=== PATIENT | male | born 1965 | race Caucasian/White ===

== ENCOUNTER 2017-04-17 06:16 | Day surgery (SDC) | payer OTHER, SELFPAY ==
[2017-04-16 12:49] VITALS: BMI 28.5
[2017-04-17] VITALS (12 sets, daily range): BP systolic 117–147; BP diastolic 63–82; PULSE 53–93; RESP 14–20; TEMP 36.2–43; O2SAT 95–98
--- NOTE | 2017-04-17 07:21 | P.PN_ITS ---
[facility] Anesthesia Checklist - Patient Identification Patient Identification: Arm Band, Verbal (Name & ) - Structural Data Admitted From: Home Consent for Planned Operative Procedure(s) Verified: Yes Verified Documents: Surgical Consent - NPO Status Verified Time NPO: 00:00 - Chart Verification Results Verified: CBC, BMP - Additional verifications Patient : No Anesthesia Reactions: No Hx Blood Transfusions: Yes Blood Transfusion Reaction: No Cephalosporin Allergy: No Previous Colonoscopy: No - Cardiovascular Assessment Heart Sounds: S1 & S2 Pulse Strength: Strong Pulse Rhythm: Regular Peripheral Edema: No - Airway Assessment C-Spine Mobility Assessed: Yes TMJ Mobility Assessed: Yes Dentition: Good Dentition - Neurological Assessment Level of Consciousness: Awake, Alert, Appropriate Hx Seizures: No Numbness or tingling in extremities: No - Anesthesia Plan Anesthesia Risk discussed: Yes Anesthesia Plan: Verified ASA Class: III Anesthesia Type: General [facility] Anesthesia HX I have reviewed the patient's past medical history: Yes Medical History: Reports:: Chronic Obstructive Pulmonary Disease (COPD), Coronary Artery Disease Denies:: Cancer, Diabetes Mellitus Type 1, Diabetes Mellitus Type 2, MRSA, Seizures Other Medical History: Denies: Blood Transfusion Reaction (n/a) Other Surgeries: Yes: Appendectomy. No: Pacemaker Amputation: No Fractures: No *Family Hx:: Coronary Artery Disease
--- NOTE | 2017-04-17 08:20 | PC.NURSE ---
[id number]/C INSERTED PER RICHY DAVIS
--- NOTE | 2017-04-17 10:09 | HMH.ANESI ---
[facility] Anesthesia Record Part I Intake, IV Amount: 1,400 Estimated blood loss (mL): 25 Urine output (mL): 200 Blood Products used (#): none Blood Pressure: 147/82 SaO2: 97 Pulse Rate: 93 Respiratory Rate: 20 Temperature: 97.2 F Patient is:: Awake, Mask O2, Stable Stable to PACU at:: 10:04
--- NOTE | 2017-04-17 10:10 | HMH.ANESII ---
[facility] Anesthesia Record Part II Discharge Time: 10:34 Destination: Surgical Day Care (OP Surgery) PACU nurse assessment reviewed?: Yes Patient Condition:: Good Anesthesia Complications:: None
--- NOTE | 2017-04-17 10:17 | HMH.OPNOTE ---
Date of procedure: 04/17/17 Pre-op Diagnosis:: Bilateral inguinal hernias Post-op diagnosis:: same Procedure performed:: Bilateral laparoscopic inguinal hernia repair with placement of a large left Bard 3D max mesh and a medium right Bard 3D max mesh Surgeon:: Ten Tanner MD Senior Net C Developer(s):: None Anesthesia: ANN Estimated blood loss (mL): 50 Clinical Note:: Patient is a 51-year-old white male from [place] who had previously had umbilical hernia repair. He states that he has had more prominence in the left groin and testicular area for quite some time. Several months ago he had what he describes as a bout of significant coughing. He had protrusion in the left groin area and had been able to reduce the area but it has become more difficult to reduce. He had discomfort with walking and standing. Patient was seen as a surgical consultation. He was found to have a large visible left inguinal hernia and smaller palpable right inguinal hernia. He wished to proceed surgical intervention. Patient did have previous coronary artery bypass grafting and he underwent cardiac clearance. Options were discussed and plan was made for laparoscopic with possibly open bilateral inguinal hernia repair with concentration on the left. Operative findings:: Large indirect left inguinal hernia and small direct left inguinal hernia. [id number] indirect right inguinal hernia. Operative note:: Consent was obtained and patient was taken to the operating room. He was given preoperative intravenous antibiotic. General anesthesia was induced via endotracheal tube. He had Gustafson catheter placed for bladder decompression. Abdomen and perineal area were prepped and draped in the standard sterile fashion. Infraumbilical skin incision was made. Dissection was carried down through subcutaneous tissues to anterior rectus fascia which was incised to the left of the linea alba. Rectus muscles were retracted laterally and pre-peritoneal space was entered. Dissecting balloon trocar was inserted and preperitoneal space was dissected out under laparoscopic visualization. Dissecting balloon trocar was removed and replaced with the structural balloon trocar. CO2 pneumo preperitoneum was achieved 15 mmHg. A couple of midline 5 mm trochars were inserted inferior to the umbilicus. Dissection was carried out of the left inguinal area. Landmarks were identified initially identifying Roscoe's ligament. There was some herniated preperitoneal fat as a direct hernia as well as a lymph node. This was dissected free from the hernia defect. Inferior epigastric vessels and cord structures were identified. There was significant herniated preperitoneal fat as cord lipoma and this was able to be ultimately reduced from the internal ring. There is also noted to be a moderately large hernia sac and this was carefully dissected free from the cord structures and ultimately able to be reduced into the peritoneal cavity. Dissection was carried out laterally to allow for mesh placement. At this point attention was turned to dissection on the right. Initial identification of landmarks on the right side was rather difficult due to scar tissue from prior appendectomy. However Roscoe's ligament was identified. Dissection was then carried out identifying the inferior epigastric vessels and cord structures. Cord was dissected free. He had evidence of direct hernia. This was small to moderate. There is no evidence of any significant indirect hernia although there was some minimal herniated preperitoneal fat and this was reduced. A medium sized Bard 3D max mesh dedicated for the right side was inserted into the preperitoneal space and oriented intracorporeally to cover the iliopectineal orifice. This appeared to cover the defect with good overlap. Next attention was turned to mesh placement on the left. Some additional dissection was performed prior to placing a large Bard 3D max mesh dedi
--- NOTE | 2017-04-17 10:20 | P.OP_ITS ---
Date of procedure: 04/17/17 Pre-op Diagnosis:: Bilateral inguinal hernias Post-op diagnosis:: same Procedure performed:: Bilateral laparoscopic inguinal hernia repair with placement of a large left Bard 3D max mesh and a medium right Bard 3D max mesh Surgeon:: Ten Tanner MD Skilled Labor(s):: None Anesthesia: ANN Estimated blood loss (mL): 50 Clinical Note:: Patient is a 51-year-old white male from [place] who had previously had umbilical hernia repair. He states that he has had more prominence in the left groin and testicular area for quite some time. Several months ago he had what he describes as a bout of significant coughing. He had protrusion in the left groin area and had been able to reduce the area but it has become more difficult to reduce. He had discomfort with walking and standing. Patient was seen as a surgical consultation. He was found to have a large visible left inguinal hernia and smaller palpable right inguinal hernia. He wished to proceed surgical intervention. Patient did have previous coronary artery bypass grafting and he underwent cardiac clearance. Options were discussed and plan was made for laparoscopic with possibly open bilateral inguinal hernia repair with concentration on the left. Operative findings:: Large indirect left inguinal hernia and small direct left inguinal hernia. [id number] indirect right inguinal hernia. Operative note:: Consent was obtained and patient was taken to the operating room. He was given preoperative intravenous antibiotic. General anesthesia was induced via endotracheal tube. He had Gustafson catheter placed for bladder decompression. Abdomen and perineal area were prepped and draped in the standard sterile fashion. Infraumbilical skin incision was made. Dissection was carried down through subcutaneous tissues to anterior rectus fascia which was incised to the left of the linea alba. Rectus muscles were retracted laterally and pre- peritoneal space was entered. Dissecting balloon trocar was inserted and preperitoneal space was dissected out under laparoscopic visualization. Dissecting balloon trocar was removed and replaced with the structural balloon trocar. CO2 pneumo preperitoneum was achieved 15 mmHg. A couple of midline 5 mm trochars were inserted inferior to the umbilicus. Dissection was carried out of the left inguinal area. Landmarks were identified initially identifying Roscoe's ligament. There was some herniated preperitoneal fat as a direct hernia as well as a lymph node. This was dissected free from the hernia defect. Inferior epigastric vessels and cord structures were identified. There was significant herniated preperitoneal fat as cord lipoma and this was able to be ultimately reduced from the internal ring. There is also noted to be a moderately large hernia sac and this was carefully dissected free from the cord structures and ultimately able to be reduced into the peritoneal cavity. Dissection was carried out laterally to allow for mesh placement. At this point attention was turned to dissection on the right. Initial identification of landmarks on the right side was rather difficult due to scar tissue from prior appendectomy. However Roscoe's ligament was identified. Dissection was then carried out identifying the inferior epigastric vessels and cord structures. Cord was dissected free. He had evidence of direct hernia. This was small to moderate. There is no evidence of any significant indirect hernia although there was some minimal herniated preperitoneal fat and this was reduced. A medium sized Bard 3D max mesh dedicated for the right side was inserted into the preperitoneal space and oriented intracorpor
[2017-04-17 13:21] LABS: Microscopic,Cath URINE MICROSCOPIC (MICROSCOPIC)
[2017-04-17 13:32] LABS: Appearance,Urine/Cath CLEAR (Clear); Bilirubin,Cath Negative (Negative); Glucose,Urine/Cath (UA) Negative (Negative); Ketones,Urine/Cath Negative (Negative); Leukocyte Esterase,Cath Negative (Negative); Nitrate,Cath Negative (Negative); Protein,Urine/Cath Negative (Negative); Urobilinogen,Cath 0.2 EU/dl (0.2)
[2017-04-18 06:48] LABS: Color,Urine/Cath YELLOW (Yellow)
[2017-04-18 06:49] LABS: Blood, Urine/Cath Negative (Negative); Specific Gravity, Urine/Cath >= 1.030 (1.005-1.030)
[2017-04-18 07:15] LABS: Bacteria,Urine/Cath TRACE /lpf; Mucus,Urine/Cath 1+ /lpf; Sperm,Urine/Cath OCC /lpf
== END 2017-04-17 11:30 | disposition home or self-care (01) ==
LOC: OR 06:21
PROVIDERS: PCP Family Medicine; Visit Provider Surgery
PROC: (CPT 49650; principal; 2017-04-17 07:30)
DX: K40.20 Bilateral inguinal hernia, without obstruction or gangrene, not specified as recurrent (principal)
CPT/HCPCS: 49505; 81001; 96374; J0131; J2710

== ENCOUNTER → 2018-05-13 08:57 | Outpatient (POV) | payer MEDICAID, SELFPAY ==
[2018-05-13 09:07] VITALS: BP 133/65; PULSE 55; RESP 18
--- NOTE | 2018-05-13 09:30 | HMH.PMCON ---
Assessment and Plan (1) Sacroiliitis Current visit: Yes Status: Chronic Category: Medical Code(s): M46.1 - Sacroiliitis, not elsewhere classified - Assessment and plan all Dx Assessment and Plan for all problems:: We will plan a right SI joint injection for the patient. Dr. Crowder has reviewed this note and agrees with this plan of care. This note was dictated using voice recognition software and may contain errors or omissions HPI - Data of Consult Consult date: 05/13/18 Requesting Physician: Delma Arias APRN Primary Care Provider: Solomon Marie - Consult Narrative Reason for consult: Back pain, right leg pain History of present illness: Mr. Hurley is a 52 year old male who presents today to discuss his back and leg pain. Patient states for several years that he has had worsening pain. Patient states that his pain is worse when he crosses his leg. He has numbness in his butt cheek at times. It does radiate into his groin at times. Rates his pain a 5 out of 10 today. Patient is continuing a home stretching program. Patient is also on anti-inflammatories. He rates his pain a 5 out of 10. CC: Delma Arias APRN [facility] History I have reviewed the patient's past medical history: Yes Medical History: Reports:: Chronic Obstructive Pulmonary Disease (COPD), Coronary Artery Disease, Hypertension Denies:: Cancer, Diabetes Mellitus Type 1, Diabetes Mellitus Type 2, Internal Pacemaker, MRSA, Seizures Other Medical History: Denies: Blood Transfusion Reaction (n/a) Other Surgeries: Yes: Appendectomy. No: Pacemaker Amputation: No Fractures: No - *Social History Smoking Status: Current every day smoker Tobacco Type: cigarettes # Packs/Day (cigarettes): 1 #Yrs smoked (if former smoker): 30 Alcohol Intake: never Occupational Status: unemployed Housing: house Household Members: spouse, children Travel in the last 8 weeks: None - Psychiatric History Expresses thoughts of harming self/others: None Suicide Plan Description: No Plan *Family Hx:: Coronary Artery Disease Review of Systems - Review of Systems ROS General: no recent weight change, no fever, no sleep disturbances Respiratory: no cough, no shortness of air, no recurring pulmonary infections Cardiovascular/Peripheral Vascular: No chest pain, No palpitations, no edema, no shortness of breath. Gastrointestinal: no incontinence, normal bowel movements reported Genitourinary: no incontinence Musculoskeletal: Right hip and leg pain Psychiatric: normal mood/ affect Neurological: [denies weakness in extremities], [denies balance issues] Meds Home Medications Medication Instructions Recorded Confirmed Type Albuterol Sulfate [Proventil-HFA 1 - 2 puffs IH Q6HP PRN 04/16/17 04/17/17 History 90mcg/puff Inh] Atorvastatin Calcium [Atorvastatin 20 mg PO DAILY 04/16/17 04/17/17 History 20mg Tab] Fenofibrate 160 mg PO DAILY 04/16/17 04/17/17 History Fluticasone/Vilanterol [Breo 1 each IH DAILY 04/16/17 04/17/17 History Ellipta 100-25 Mcg INH] Lisinopril [Lisinopril 5mg Tablet] 5 mg PO DAILY 04/16/17 04/17/17 History Meloxicam [Mobic 7.5mg Tab] 7.5 mg PO BID 04/16/17 04/17/17 History Metoprolol Succinate 25 mg PO DAILY 04/16/17 04/17/17 History Nitroglycerin 0.6 mg SL NEEDED PRN 04/16/17 04/17/17 History Tramadol HCl [Ultram 50mg 50 mg PO Q6HP PRN 04/16/17 04/17/17 History tablet] Allergies Allergy/AdvReac Type Severity Reaction Status Date / Time No Known Allergies Allergy Verified 04/16/17 12:22 Objective Vital signs: Pulse Resp BP 55 L 18 133/65 05/13/18 09:07 05/13/18 09:07 05/13/18 09:07 Narrative: Physical Exam General: Alert and oriented x3, no acute distress, pleasant and cooperative, [on room air] Lungs: Resps E/U, Symmetrical chest expansion, Eyes: PERRL Musculoskeletal: Flexion and extension of lumbar spine somewhat guarded secondary to pain, deep tend
--- NOTE | 2018-05-13 09:35 | P.CONS_ITS ---
Assessment and Plan (1) Sacroiliitis Current visit: Yes Status: Chronic Category: Medical Code(s): M46.1 - Sacroiliitis, not elsewhere classified - Assessment and plan all Dx Assessment and Plan for all problems:: We will plan a right SI joint injection for the patient. Dr. Crowder has reviewed this note and agrees with this plan of care. This note was dictated using voice recognition software and may contain errors or omissions HPI - Data of Consult Consult date: 05/13/18 Requesting Physician: Delma Arias APRN Primary Care Provider: Solomon Marie - Consult Narrative Reason for consult: Back pain, right leg pain History of present illness: Mr. Hurley is a 52 year old male who presents today to discuss his back and leg pain. Patient states for several years that he has had worsening pain. Patient states that his pain is worse when he crosses his leg. He has numbness in his butt cheek at times. It does radiate into his groin at times. Rates his pain a 5 out of 10 today. Patient is continuing a home stretching program. Patient is also on anti-inflammatories. He rates his pain a 5 out of 10. CC: Delma Arias APRN [facility] History I have reviewed the patient's past medical history: Yes Medical History: Reports:: Chronic Obstructive Pulmonary Disease (COPD), Coronary Artery Disease, Hypertension Denies:: Cancer, Diabetes Mellitus Type 1, Diabetes Mellitus Type 2, Internal Pacemaker, MRSA, Seizures Other Medical History: Denies: Blood Transfusion Reaction (n/a) Other Surgeries: Yes: Appendectomy. No: Pacemaker Amputation: No Fractures: No - *Social History Smoking Status: Current every day smoker Tobacco Type: cigarettes # Packs/Day (cigarettes): 1 #Yrs smoked (if former smoker): 30 Alcohol Intake: never Occupational Status: unemployed Housing: house Household Members: spouse, children Travel in the last 8 weeks: None - Psychiatric History Expresses thoughts of harming self/others: None Suicide Plan Description: No Plan *Family Hx:: Coronary Artery Disease Review of Systems - Review of Systems ROS General: no recent weight change, no fever, no sleep disturbances Respiratory: no cough, no shortness of air, no recurring pulmonary infections Cardiovascular/Peripheral Vascular: No chest pain, No palpitations, no edema, no shortness of breath. Gastrointestinal: no incontinence, normal bowel movements reported Genitourinary: no incontinence Musculoskeletal: Right hip and leg pain Psychiatric: normal mood/ affect Neurological: [denies weakness in extremities], [denies balance issues] Meds Home Medications Medication Instructions Recorded Confirmed Type Albuterol Sulfate [Proventil-HFA 1 - 2 puffs IH Q6HP PRN 04/16/17 04/17/17 History 90mcg/puff Inh] Atorvastatin Calcium [Atorvastatin 20 mg PO DAILY 04/16/17 04/17/17 History 20mg Tab] Fenofibrate 160 mg PO DAILY 04/16/17 04/17/17 History Fluticasone/Vilanterol [Breo 1 each IH DAILY 04/16/17 04/17/17 History Ellipta 100-25 Mcg INH] Lisinopril [Lisinopril 5mg Tablet] 5 mg PO DAILY 04/16/17 04/17/17 History Meloxicam [Mobic 7.5mg Tab] 7.5 mg PO BID 04/16/17 04/17/17 History Metoprolol Succinate 25 mg PO DAILY 04/16/17 04/17/17 History Nitroglycerin 0.6 mg SL NEEDED PRN 04/16/17 04/17/17 History Tramadol HCl [Ultram 50mg 50 mg PO Q6HP PRN 04/16/17 04/17/17 History tablet]
== END ==
PROVIDERS: PCP Family Medicine; Visit Provider Clinical Nurse Specialist Family Health
DX: M46.1 Sacroiliitis, not elsewhere classified (principal)
CPT/HCPCS: 99202

== ENCOUNTER → 2018-07-07 13:53 | Outpatient (POV) | payer MEDICAID, SELFPAY ==
[2018-07-07 14:21] VITALS: BP 121/71; PULSE 60; RESP 18; O2SAT 98; BMI 23.7
--- NOTE | 2018-07-07 14:24 | P.CONS_ITS ---
[facility] Pain Management SOAP Note Subjective:: Patient is a pleasant 53-year-old white male who presents today for follow-up after an SI joint injection. Patient is gotten much worse he rates his pain a 7 out of 10 it is radiating down his leg. Patient is becoming less functional. Patient was on anti-inflammatories with no relief he is having difficulty doing his activities of daily living. He has been continuing home stretching program however it is becoming increasingly difficult. He rates his pain a 7 out of 10. Patient is having some weakness in his right leg as well. Patient has had over 6 months of pain and has failed conservative therapy within this time. ROS General: no recent weight change, no fever, no sleep disturbances Respiratory: no cough, no shortness of air, no recurring pulmonary infections Cardiovascular/Peripheral Vascular: No chest pain, No palpitations, no edema, no shortness of breath. Gastrointestinal: no incontinence, normal bowel movements reported Genitourinary: no incontinence Musculoskeletal: Back pain, leg pain Psychiatric: normal mood/ affect Neurological: Weakness in right lower extremity, [denies balance issues] Objective:: Physical Exam General: Alert and oriented x3, no acute distress, pleasant and cooperative, [on room air] Lungs: Resps E/U, Symmetrical chest expansion, Eyes: PERRL Musculoskeletal: Flexion and extension of lumbar spine somewhat guarded secondary to pain, deep tendon reflexes normal, strength in upper and left lower extremities [5/5], right lower extremity 4/5 [abnormal gait noted] positive straight leg raise test on the right side at 30 degrees Neurological: speech clear, hydrochloric acid operator equal, no gross sensory deficits Assessment:: Back pain, lumbar radiation of pain Plan:: We will plan a L4-L5 lumbar epidural steroid injection to help alleviate some of his symptomology. We will also order an MRI to help to a certain pathology. Patient is continuing his home stretching program however is getting increasingly difficult. Patient's tried and failed injections along with exercises and anti-inflammatories over [address] Crowder has reviewed this note and agrees with this plan of care. This note was dictated using voice recognition software and may contain errors or omissions
== END ==
PROVIDERS: PCP Family Medicine; Visit Provider Clinical Nurse Specialist Family Health
DX: M54.9 Dorsalgia, unspecified (principal); M54.16 Radiculopathy, lumbar region
CPT/HCPCS: 99212

== ENCOUNTER → 2018-07-14 07:42 | Outpatient (CLI) | payer MEDICAID, SELFPAY ==
--- NOTE | 2018-07-14 07:52 | MR_ITS ---
MR lumbar spine wo con, MR 3-d myelogram/MRCP HISTORY: LBP.Bilateral leg pain X 2yrs. No trauma. No HX lumbar surgery. No Prior. ITS.REASON: BACK PAIN ORDERING PHYSICIAN: Varun Crowder MD PATIENT AGE: 53 years Comparison: None TECHNIQUE: Standard multiplanar multiecho sequences are performed without contrast. 3-D MIP and myelographic images are also rendered and reviewed FINDINGS: There is normal alignment. The spinal cord is at the T12-L1 level. L1-L2 and L2-L3 have an unremarkable appearance. L3-L4: Bulging disc along with facet and ligamentum flavum hypertrophy with bilateral lateral recess and foraminal narrowing. L4-5: Minimal bulging disc along with facet and ligamentum flavum hypertrophy with mild bilateral lateral recess and foraminal narrowing. L5-S1: Mild facet hypertrophic change with mild bilateral foraminal narrowing. No canal stenosis or extruded herniated disc evident. IMPRESSION: Mild bulging disc are present at L3-L4 and L4-5 facet and ligamentum flavum hypertrophy with mild bilateral lateral recess and foraminal narrowing. Lateral recess narrowing is more prominent at L3-L4. There is also mild bilateral foraminal narrowing at L5-S1 No extruded herniated disc or canal stenosis
== END ==
PROVIDERS: PCP Family Medicine; Visit Provider Anesthesiology
DX: M54.5 Low back pain (principal)
CPT/HCPCS: 72148; 76376

== ENCOUNTER → 2018-08-15 11:28 | Outpatient (POV) | payer MEDICAID, SELFPAY ==
[2018-08-15 11:50] VITALS: BP 138/75; PULSE 58; RESP 18; O2SAT 95; BMI 25.0
--- NOTE | 2018-08-15 12:11 | HMH.PAINSOAP ---
[facility] Pain Management SOAP Note Subjective:: This patient is a pleasant 53-year-old white male who we have been treating for low back pain with lumbar radicular symptoms. He is status post lumbar epidural steroid injection without much relief of his pain symptoms. He had a couple days of good pain relief however pain is now worse than previously. MRI does show bulging disc at L3-L4, L4-L5 with facet hypertrophy at L3-L4, L4-5 and L5-S1. He has not had a neurosurgical evaluation. He is also not been on Neurontin. I have talked to him about starting gabapentin 300 mg 3 times a day and also getting a neurosurgical evaluation to see if he may be a candidate for any surgery to help with his pain symptoms. I also talked to him about spinal cord stimulation as an alternative. We will give him information on spinal cord stimulation. The patient does not seem interested however he did take information. He is asking about pain medicine. I told him we can only prescribe nonnarcotic medications to help him with his pain symptoms. Objective:: Alert and oriented x3 no acute distress. Patient does have an antalgic gait. Motor strength of lower extremities is 5/5. There is no gross sensory deficit. He does have tenderness over the lower lumbar spine and tenderness over the right lumbar paraspinous area. Assessment:: Degenerative disc disease of lumbar spine with lumbar radiculopathy symptoms with facet hypertrophy and bulging disc at L3-L4 and L4-L5. Plan:: I have talked to him about starting gabapentin 300 mg 3 times a day and also getting a neurosurgical evaluation to see if he may be a candidate for any surgery to help with his pain symptoms. I also talked to him about spinal cord stimulation as an alternative. We will give him information on spinal cord stimulation. The patient does not seem interested however he did take information. He is asking about pain medicine. I told him we can only prescribe nonnarcotic medications to help him with his pain symptoms.
== END ==
PROVIDERS: PCP Family Medicine; Visit Provider Anesthesiology
DX: M51.16 Intervertebral disc disorders with radiculopathy, lumbar region (principal); M46.96 Unspecified inflammatory spondylopathy, lumbar region
CPT/HCPCS: 99212

== ENCOUNTER → 2018-09-12 09:54 | Outpatient (POV) | payer MEDICAID, SELFPAY ==
[2018-09-12 10:29] VITALS: BP 121/69; PULSE 59; RESP 18; O2SAT 97; BMI 25.0
--- NOTE | 2018-09-12 11:21 | P.CONS_ITS ---
[facility] Pain Management SOAP Note Subjective:: This patient is a pleasant 53-year-old white male who we have been treating for low back pain with lumbar radicular symptoms and lumbar spondylosis. MRI does show bulging disc at L3-L4, L4-L5 with facet hypertrophy at L3-L4, L4-5 and L5- S1. He is failed all conservative therapy including injections, physical therapy and medications. He still has significant pain in his back and down his legs. I believe he would be a good candidate for spinal cord stimulation. I have gone over the risk and benefits and answered all questions. We will plan on spinal cord stimulator trial. He recently fell and has a hematoma on the left side. We will let his hematoma resolve and seek approval for the stim trial in the meantime. We will follow-up with him in 1 month to plan on the stim trial. Objective:: Alert and oriented x3 no acute distress. Patient recently fell and has huge hematoma on his left flank. He does have an antalgic gait. Motor strength of lower extremities is 5/5. There is no gross sensory deficit. Assessment:: Degenerative disc disease of lumbar spine with lumbar radiculopathy symptoms with facet hypertrophy and bulging disc at L3-L4 and L4-L5 Plan:: We will seek approval for spinal cord stimulator trial to help with his low back pain and leg pain. We will plan on psychological evaluation. We will see him back in 1 month after his psychological evaluation and also to evaluate his hematoma on his left flank. We will plan on scheduling his stim trial after his follow-up visit.
--- NOTE | 2018-11-25 14:58 | PC.PHONENOTE ---
called in Rx for Gabapentin 300mg TID with 3 refills to [facility] per provider order
== END ==
PROVIDERS: PCP Family Medicine; Visit Provider Anesthesiology
DX: M51.16 Intervertebral disc disorders with radiculopathy, lumbar region (principal)
CPT/HCPCS: 99211

== ENCOUNTER → 2019-03-10 09:54 | Outpatient (POV) | payer MEDICAID, SELFPAY ==
[2019-03-10 10:27] VITALS: BP 144/66; PULSE 66; RESP 18; O2SAT 98; BMI 24.4
--- NOTE | 2019-03-10 10:45 | HMH.PAINSOAP ---
[facility] Pain Management SOAP Note Subjective:: Patient is a pleasant 53-year-old white male who presents today for follow-up. He is being treated for low back pain with lumbar radiculopathy symptoms and lumbar spondylosis. Patient underwent a medial branch block at L3-L4 L4-L5 and L5-S1. He does say that he got approximately 70 to 80% relief with this injection. Patient says, however, his pain did return within a week. Patient says that at his last visit he did discuss possible spinal cord stimulation, however, he did have a fall at that time and had a severe left-sided hematoma. His hematoma has since resolved and the patient says that he now, however, is having cardiac issues. Patient says he has been passing out due to a low heart rate. He says he has multiple blockages and is having a cardiac work-up at this time to determine if he will need surgical intervention. He is scheduled today for lab work and for x-rays. Patient says he also recently hurt his back lifting heavy boxes at home. He says that the pain has been worse over the last 2 to 3 days. He says the pain is worse with standing or walking and is relieved with sitting. He does say turning and twisting at his hips do cause him intense pain. He has tried physical therapy for greater than 6 weeks along with a continued home stretching program. He is taking anti-inflammatories. He says he takes gabapentin at this time and it does give him approximately 60% relief. He also says that he applies ice and heat therapies with little to no relief. He would like to discuss possible spinal cord stimulation, but would like to postpone this until he undergoes his cardiac work-up to determine if he needs surgical intervention. Review of Systems General: No recent weight changes, no fever, no sleep disturbances Respiratory: No cough, no shortness of air, no recurring pulmonary infections Cardiovascular/peripheral vascular: No chest pain, no palpitations, no edema, no shortness of breath Gastrointestinal: No new onset incontinence, normal bowel movements reported Genitourinary: No new onset incontinence Musculoskeletal: Low back pain Psychiatric: Normal mood/affect Neurological: [Denies weakness in extremities], [denies balance issues] Objective:: Physical exam General: Alert and oriented x3, no acute distress, pleasant and cooperative, [on room air] Lungs: Respirations even and unlabored, symmetrical chest expansion Eyes: PERRL Musculoskeletal: Flexion and extension of lumbar spine somewhat guarded secondary to pain, deep tendon reflexes normal, strength in upper and lower extremities [5/5], [abnormal gait noted], positive Kemps test Neurological: Speech clear, generation mechanic helper equal, no gross sensory deficit Assessment:: Degenerative disc disease lumbar spine with lumbar radiculopathy symptoms, facet hypertrophy Plan:: Patient would like to postpone any type of intervention at this time. He will follow-up with his headend technician and will return to the office in 1 month to establish a plan of care. Patient has been instructed to contact the clinic if he has any concerns before his next appointment. Dr. Crowder has reviewed this note and agrees with this plan of care. This note was dictated using voice recognition software and make contain errors or omissions. [facility] History I have reviewed the patient's past medical history: Yes Medical History: Reports:: Chronic Obstructive Pulmonary Disease (COPD), Coronary Artery Disease, Hypertension Denies:: Cancer, Diabetes Mellitus Type 1, Diabetes Mellitus Type 2, Internal Pacemaker, MRSA, Seizures *Have you ever received a pneumonia vaccine?: Yes *Have you received a flu vaccine this season?: Yes Other Medical History: Denies: Blood Transfusion Reaction (n/a) Other Surgeries: Yes: Appendectomy. No: Pacemaker Amputation: No Fractures: No - *Social History Smoking Status: Current every day smoker Tobacco Type: cigarettes # Packs/Day (cigarette
--- NOTE | 2019-03-10 10:48 | P.CONS_ITS ---
[facility] Pain Management SOAP Note Subjective:: Patient is a pleasant 53-year-old white male who presents today for follow-up. He is being treated for low back pain with lumbar radiculopathy symptoms and lumbar spondylosis. Patient underwent a medial branch block at L3-L4 L4-L5 and L5-S1. He does say that he got approximately 70 to 80% relief with this injection. Patient says, however, his pain did return within a week. Patient says that at his last visit he did discuss possible spinal cord stimulation, however, he did have a fall at that time and had a severe left-sided hematoma. His hematoma has since resolved and the patient says that he now, however, is having cardiac issues. Patient says he has been passing out due to a low heart rate. He says he has multiple blockages and is having a cardiac work-up at this time to determine if he will need surgical intervention. He is scheduled today for lab work and for x-rays. Patient says he also recently hurt his back lifting heavy boxes at home. He says that the pain has been worse over the last 2 to 3 days. He says the pain is worse with standing or walking and is relieved with sitting. He does say turning and twisting at his hips do cause him intense pain. He has tried physical therapy for greater than 6 weeks along with a continued home stretching program. He is taking anti-inflammatories. He says he takes gabapentin at this time and it does give him approximately 60% relief. He also says that he applies ice and heat therapies with little to no relief. He would like to discuss possible spinal cord stimulation, but would like to postpone this until he undergoes his cardiac work-up to determine if he needs surgical intervention. Review of Systems General: No recent weight changes, no fever, no sleep disturbances Respiratory: No cough, no shortness of air, no recurring pulmonary infections Cardiovascular/peripheral vascular: No chest pain, no palpitations, no edema, no shortness of breath Gastrointestinal: No new onset incontinence, normal bowel movements reported Genitourinary: No new onset incontinence Musculoskeletal: Low back pain Psychiatric: Normal mood/affect Neurological: [Denies weakness in extremities], [denies balance issues] Objective:: Physical exam General: Alert and oriented x3, no acute distress, pleasant and cooperative, [on room air] Lungs: Respirations even and unlabored, symmetrical chest expansion Eyes: PERRL Musculoskeletal: Flexion and extension of lumbar spine somewhat guarded se condary to pain, deep tendon reflexes normal, strength in upper and lower extremities [5/5], [abnormal gait noted], positive Kemps test Neurological: Speech clear, ceramist equal, no gross sensory deficit Assessment:: Degenerative disc disease lumbar spine with lumbar radiculopathy symptoms, facet hypertrophy Plan:: Patient would like to postpone any type of intervention at this time. He will follow-up with his nursery nurse and will return to the office in 1 month to establish a plan of care. Patient has been instructed to contact the clinic if he has any concerns before his next appointment. Dr. Crowder has reviewed this note and agrees with this plan of care. This note was dictated using voice recognition software and make contain errors or omissions. [facility] History I have reviewed the patient's past medical history: Yes Medical History: Reports:: Chronic Obstructive Pulmonary Disease (COPD), Coronary Artery Disease, Hypertension Denies:: Cancer, Diabetes Mellitus Type 1, Diabetes Mellitus Type 2, Internal Pacemaker, MRSA, Seizures *Have you ever received a pneumonia vaccine?: Yes *Hav
== END ==
PROVIDERS: PCP Family Medicine; Visit Provider Clinical Nurse Specialist Family Health
DX: M51.16 Intervertebral disc disorders with radiculopathy, lumbar region (principal)
CPT/HCPCS: 99212

== ENCOUNTER → 2019-04-14 10:33 | Outpatient (POV) | payer MEDICAID, SELFPAY ==
[2019-04-14 11:06] VITALS: BP 131/58; PULSE 56; RESP 18; O2SAT 98; BMI 24.4
--- NOTE | 2019-04-14 11:20 | HMH.PAINSOAP ---
[facility] Pain Management SOAP Note Subjective:: Patient is a pleasant 53-year-old white male who presents today for follow-up. Patient has been treated for back pain however he states his worst pain is his right SI joint and right hip. Patient rates it a 7 out of 10. He is unable to walk or do activities. Patient states that he needs something to help with this. Patient does not have any diagnostic imaging. Patient is currently on an anti-inflammatory however is not beneficial. Patient is currently on gabapentin 300 mg 1 p.o. 3 times daily. He would like to increase this I do believe that might be beneficial for him. We will double it and increase it to 600 mg 1 p.o. 3 times daily. We will also get some x-rays of his SI joint along with his hip. ROS General: no recent weight change, no fever, no sleep disturbances Respiratory: no cough, no shortness of air, no recurring pulmonary infections Cardiovascular/Peripheral Vascular: No chest pain, No palpitations, no edema, no shortness of breath. Gastrointestinal: no new onset incontinence, normal bowel movements reported Genitourinary: no new onset incontinence Musculoskeletal: Back pain, right hip pain, right SI joint pain Psychiatric: normal mood/ affect Neurological: [denies new onset weakness in extremities], [denies new onset balance issues] Objective:: Physical Exam General: Alert and oriented x3, no acute distress, pleasant and cooperative, [on room air] Lungs: Resps E/U, Symmetrical chest expansion, Eyes: PERRL Musculoskeletal: Flexion and extension of lumbar spine somewhat guarded secondary to pain, deep tendon reflexes normal, strength in upper and lower extremities [5/5], [abnormal gait noted] positive SI joint compression test positive [place] test positive Reji's test on the right side Neurological: speech clear, java web architect equal, no gross sensory deficits Assessment:: Sacroiliitis, right hip pain Plan:: We will plan a right SI joint injection and right hip injection. We will also get some diagnostic imaging of his hip and SI joint. Patient may be a candidate for coronary lock procedure. I will follow-up with him after this reassess his symptoms at that time he is been instructed to call the office if he has any issues prior to his next appointment. Dr. Crowder has reviewed this note and agrees with this plan of care. This note was dictated using voice recognition software and may contain errors or omissions [facility] History I have reviewed the patient's past medical history: Yes Medical History: Reports:: Chronic Obstructive Pulmonary Disease (COPD), Coronary Artery Disease, Hypertension Denies:: Cancer, Diabetes Mellitus Type 1, Diabetes Mellitus Type 2, Internal Pacemaker, MRSA, Seizures *Have you ever received a pneumonia vaccine?: Yes *Have you received a flu vaccine this season?: Yes Other Medical History: Denies: Blood Transfusion Reaction (n/a) Other Surgeries: Yes: Appendectomy. No: Pacemaker Amputation: No Fractures: No - *Social History Smoking Status: Current every day smoker Tobacco Type: cigarettes # Packs/Day (cigarettes): 1 #Yrs smoked (if former smoker): 30 Alcohol Intake: never *Occupational Status:: other Housing: house Household Members: spouse, children *Travel in the last 8 weeks: None Family Hx:: Coronary Artery Disease
--- NOTE | 2019-04-14 11:29 | XR_ITS ---
PROCEDURE: XR SACROILIAC JOINT BI MIN 3V CLINICAL INDICATION: HIP AND BACK PAIN The the right hip pain COMPARISON: No exams were available for comparison FINDINGS: No fracture or dislocation. No lytic change. There is mild sclerosis of the inferior aspect of the SI joint on the right involving the iliac margin. IMPRESSION: Mild degenerative changes right SI joint Dictated by: Nico Siddiqui MD 04/14/2019 14:35 Electronically signed by Nico Siddiqui MD in [place] 04/14/2019 14:35
--- NOTE | 2019-04-14 11:29 | XR_ITS ---
PROCEDURE: XR HIP RT 2-3V W/PELVIS CLINICAL INDICATION: HIP AND BACK PAIN COMPARISON: No exams were available for comparison FINDINGS: No fracture or dislocation is evident. No significant degenerative change. No lytic or blastic change. Unremarkable soft tissues. IMPRESSION: Negative right hip Dictated by: Nico Siddiqui MD 04/14/2019 15:30 Electronically signed by Nico Siddiqui MD in [place] 04/14/2019 15:30
== END ==
PROVIDERS: Visit Provider Clinical Nurse Specialist Family Health
DX: M46.1 Sacroiliitis, not elsewhere classified (principal); M25.559 Pain in unspecified hip; M54.9 Dorsalgia, unspecified
CPT/HCPCS: 72202; 73502; 99212

== ENCOUNTER → 2019-05-11 13:41 | Outpatient (POV) | payer MEDICAID, SELFPAY ==
--- NOTE | 2019-05-11 14:18 | HMH.PAINSOAP ---
[facility] Pain Management SOAP Note Subjective:: Patient is a pleasant 53-year-old white male who presents today for follow-up. Patient has not gotten much relief with injective therapy. He is tried and failed multiple injections including epidurals, facet joint injections, SI joint injections. He is tried and failed physical therapy. He is try to stay as active as possible however he is having continuing low back pain. He is not a surgical candidate at this time. Patient does have swelling in bilateral lower extremities at times along with burning and color changes. Patient also at times has temperature changes in his bilateral lower extremities. Patient I have discussed neuro stimulation he is interested in pursuing this. ROS General: no recent weight change, no fever, no sleep disturbances Respiratory: no cough, no shortness of air, no recurring pulmonary infections Cardiovascular/Peripheral Vascular: No chest pain, No palpitations, no edema, no shortness of breath. Gastrointestinal: no new onset incontinence, normal bowel movements reported Genitourinary: no new onset incontinence Musculoskeletal: Back pain, leg pain Psychiatric: normal mood/ affect Neurological: [denies new onset weakness in extremities], [denies new onset balance issues] Objective:: Physical Exam General: Alert and oriented x3, no acute distress, pleasant and cooperative, [on room air] Lungs: Resps E/U, Symmetrical chest expansion, Eyes: PERRL Musculoskeletal: Flexion and extension of lumbar spine somewhat guarded secondary to pain, deep tendon reflexes normal, strength in upper and lower extremities [5/5], [abnormal gait noted] Skin: Notable color changes bilateral lower extremities below the knee. Neurological: speech clear, bottom presser equal, no gross sensory deficits Assessment:: Degenerative disc disease lumbar spine with lumbar facet arthropathy, CRPS type II, sacroiliitis Plan:: We will send the patient for psychological evaluation to determine if he is a candidate for neuro stimulation. If he is we will move forward with a neurostimulator trial. He is been instructed to call the office if he has any issues prior to his next appointment. Dr. Crowder has reviewed this note and agrees with this plan of care. This note was dictated using voice recognition software and may contain errors or omissions [facility] History I have reviewed the patient's past medical history: Yes Medical History: Reports:: Chronic Obstructive Pulmonary Disease (COPD), Coronary Artery Disease, Hypertension Denies:: Cancer, Diabetes Mellitus Type 1, Diabetes Mellitus Type 2, Internal Pacemaker, MRSA, Seizures *Have you ever received a pneumonia vaccine?: No *Have you received a flu vaccine this season?: No Other Medical History: Denies: Blood Transfusion Reaction (n/a) Other Surgeries: Yes: Appendectomy. No: Pacemaker Amputation: No Fractures: No - *Social History Smoking Status: Current every day smoker Tobacco Type: cigarettes # Packs/Day (cigarettes): 1 #Yrs smoked (if former smoker): 30 Alcohol Intake: never *Occupational Status:: other Housing: house Household Members: spouse, children *Travel in the last 8 weeks: None Family Hx:: Coronary Artery Disease
[2019-05-11 15:12] VITALS: BP 125/58; PULSE 60; RESP 18; O2SAT 98; BMI 25.0
== END ==
PROVIDERS: Visit Provider Clinical Nurse Specialist Family Health
DX: M51.36 Other intervertebral disc degeneration, lumbar region (principal); M54.06 Panniculitis affecting regions of neck and back, lumbar region; G57.73 Causalgia of bilateral lower limbs; M46.1 Sacroiliitis, not elsewhere classified
CPT/HCPCS: 99212

== ENCOUNTER → 2020-02-18 09:05 | Outpatient (POV) | payer MEDICAID, SELFPAY ==
[2020-02-18 09:21] VITALS: BP 135/68; PULSE 62; RESP 18; TEMP 36.4; O2SAT 98; BMI 23.7
--- NOTE | 2020-02-21 14:09 | HMH.PAINSOAP ---
[facility] Pain Management SOAP Note Subjective:: Patient is a pleasant 54-year-old white male who presents today for follow-up. Patient was originally set up for a spinal cord stimulator trial however due to Covid this was all canceled. Patient is here today quite frustrated with his pain journey. He rates his pain a 5 out of 10. He has a terrible lysed son that he helps care for. His is also going to be moving forward with back surgery. Patient and I discussed options moving forward. Patient is currently on tramadol gabapentin and I discussed with him adding Cymbalta he is agreeable. Patient would like to move forward with a psychological evaluation for a neurostimulator. Patient has had multiple injections including epidurals, facet joint injections, SI joint injections. He has not gotten any long-term relief from this. He is tried and failed physical therapy. He has tried to stay as active as possible however he is continuing to have low back pain. He is not a surgical candidate at this time he does have swelling in his bilateral lower extremities at times along with burning and color changes and temperature changes. Patient [facility] #[id number] reviewed and appropriate ROS General: no recent weight change, no fever, no sleep disturbances Respiratory: no cough, no shortness of air, no recurring pulmonary infections Cardiovascular/Peripheral Vascular: No chest pain, No palpitations, no edema, no shortness of breath. Gastrointestinal: no new onset incontinence, normal bowel movements reported Genitourinary: no new onset incontinence Musculoskeletal: Back pain, leg pain Psychiatric: normal mood/ affect Neurological: Numbness tingling burning, color changes and temperature changes lower extremities, [denies new onset balance issues] Objective:: Physical Exam General: Alert and oriented x3, no acute distress, pleasant and cooperative, [on room air] Lungs: Resps E/U, Symmetrical chest expansion, Eyes: PERRL Musculoskeletal: Flexion and extension of lumbar spine somewhat guarded secondary to pain, deep tendon reflexes normal, strength in upper and lower extremities [5/5], [abnormal gait noted] Neurological: speech clear, screen handler equal, no gross sensory deficits Assessment:: Degenerative disc disease lumbar spine lumbar radiculopathy, lumbar facet arthropathy, CRPS type II, sacroiliitis Plan:: Move forward with a psychological evaluation to determine if he is a candidate for neuro stimulation. We will start him on Cymbalta 30 mg 1 p.o. daily. We will also prescribe tramadol 50 mg 2 tabs p.o. 3 times daily and gabapentin 600 mg 1 p.o. 3 times daily. Patient's been instructed to call the office if he has any issues prior to his next appointment. I will follow-up with him in [address] Crowder has reviewed this note and agrees with this plan of care. This note was dictated using voice recognition software and may contain errors or omissions [facility] History I have reviewed the patient's past medical history: Yes Medical History: Reports:: Chronic Obstructive Pulmonary Disease (COPD), Coronary Artery Disease, Hypertension Denies:: Cancer, Diabetes Mellitus Type 1, Diabetes Mellitus Type 2, Internal Pacemaker, MRSA, Seizures *Have you ever received a pneumonia vaccine?: Yes *Have you received a flu vaccine this season?: Yes Other Medical History: Denies: Blood Transfusion Reaction (n/a) Other Surgeries: Yes: Appendectomy. No: Pacemaker Amputation: No Fractures: No - *Social History Smoking Status: Current every day smoker Tobacco Type: cigarettes # Packs/Day (cigarettes): 1 #Yrs smoked (if former smoker): 30 Alcohol Intake: never *Occupational Status:: other Housing: house Household Members: spouse, children *Travel in the last 8 weeks: None Family Hx:: Coronary Artery Disease
== END ==
PROVIDERS: PCP Family Medicine; Visit Provider Clinical Nurse Specialist Family Health
DX: M51.16 Intervertebral disc disorders with radiculopathy, lumbar region (principal); M12.88 Other specific arthropathies, not elsewhere classified, other specified site; M46.1 Sacroiliitis, not elsewhere classified
CPT/HCPCS: 99212

== ENCOUNTER → 2020-03-10 10:07 | Outpatient (POV) | payer MEDICAID, SELFPAY ==
[2020-03-10 10:24] VITALS: BP 123/74; PULSE 85; RESP 18; TEMP 36.3; O2SAT 98; BMI 25.0
--- NOTE | 2020-03-10 10:49 | HMH.PAINSOAP ---
[facility] Pain Management SOAP Note Subjective:: Patient is a 54-year-old white male who presents today for follow-up. Patient was recently started on medications for his chronic low back pain. He was scheduled for his psychological evaluation for spinal cord stimulator trial, however, he has had to postpone his evaluation because his recently had surgery. He has been caring for her. Patient says that he is ready to undergo the psychological evaluation and possible trial. He is managed at this time with the Cymbalta 30 mg 1 tablet p.o. daily, gabapentin 600 mg 1 tablet p.o. 3 times daily, and tramadol 50 mg 2 tablets p.o. 3 times daily. Patient says he is unsure if the medication is working for him. He says that he does stay up late at night and takes medications throughout the day. He says that he seems to be having worsening pain at bedtime. He takes his medication around 5:55 PM, however, is up until 11 PM. He says that the medication seems to be wearing off by the time he goes to bed. He does rate his pain a 5 out of 10 today. \Patient does say he only recently started taking Cymbalta. He has been taking it for 8 days. Review of Systems General: No recent weight changes, no fever, no sleep disturbances Respiratory: No cough, no shortness of air, no recurring pulmonary infections Cardiovascular/peripheral vascular: No chest pain, no palpitations, no edema, no shortness of breath Gastrointestinal: No new onset incontinence, normal bowel movements reported Genitourinary: No new onset incontinence Musculoskeletal: Low back pain with radiation into legs Psychiatric: Normal mood/affect Neurological: [Denies weakness in extremities], [denies balance issues] Objective:: Physical exam General: Alert and oriented x3, no acute distress, pleasant and cooperative, [on room air] Lungs: Respirations even and unlabored, symmetrical chest expansion Eyes: PERRL Musculoskeletal: Flexion and extension of lumbar spine somewhat guarded secondary to pain, deep tendon reflexes normal, strength in upper and lower extremities [5/5], [abnormal gait noted] Neurological: Speech clear, vending machine filler equal, no gross sensory deficit Assessment:: Degenerative disc disease lumbar spine with lumbar radiculopathy symptoms, lumbar facet arthropathy, CRPS type II, sacroiliitis Plan:: Overall, the patient is continuing to still have pain. For now we will continue his oral medications and he will contact Dr. Patel's office to see if he can reschedule his psychological evaluation for an earlier date. We will refill his Cymbalta 30 mg 1 tablet p.o. daily, tramadol 50 mg 2 tablets p.o. 3 times daily, and gabapentin 600 mg 1 tablet p.o. 3 times daily. We will see the patient back in the clinic in a month to which hopefully he will have had his psychological evaluation and we can proceed with his trial. He has tried and failed conservative therapies of injections, ice and heat therapy, physical therapy for greater than 6 weeks, as well as chiropractic therapy. We will see the patient back in the clinic after he is psychological evaluation to discuss further plan of care. He has been instructed to contact clinic if he has any concerns before his next appointment. The patient and I specifically discussed risk factors for COVID19. These risks include, but are not limited to age greater than 60, heart or lung disease, diabetes, immunosuppression, and travel. We also discussed NSAIDs may worsen COVID19 infection or symptoms. Patient should not use NSAIDs to treat COVID19 signs or symptoms. Patient was also informed that any type of corticosteroid of any form (oral or injection) will decrease the patient's immune system response and may increase the likelihood of COVID19 infection and symptoms[address]. Crowder has reviewed this note and agrees with this plan of care. This note was dictated using voice recognition software and make contain errors or omissions. Patient has been pr
== END ==
PROVIDERS: PCP Family Medicine; Visit Provider Clinical Nurse Specialist Family Health
DX: M51.16 Intervertebral disc disorders with radiculopathy, lumbar region (principal); M54.06 Panniculitis affecting regions of neck and back, lumbar region; M46.1 Sacroiliitis, not elsewhere classified
CPT/HCPCS: 99212

== ENCOUNTER → 2020-04-18 10:15 | Outpatient (POV) | payer MEDICAID, SELFPAY ==
[2020-04-18 12:39] VITALS: BP 138/79; PULSE 88; RESP 18; TEMP 36.8; O2SAT 98; BMI 24.4
--- NOTE | 2020-04-18 13:06 | HMH.PAINSOAP ---
[facility] Pain Management SOAP Note Subjective:: Patient is a pleasant 54-year-old white male presents today for follow-up. Patient recently was started on medication for chronic low back pain including Cymbalta, tramadol, gabapentin. Patient states that his pain is still quite high he rates his pain a 4 out of 10. He had a drug screen today. He does state that he took his 's Valium. We discussed that we will look over his drug screen when it is resulted and discuss what needs to happen moving forward. Patient's Jimmie reviewed and appropriate. Jimmie #[id number] reviewed. Patient's current morphine equivalent is 30. We are still working towards a stimulator for the patient. ROS General: no recent weight change, no fever, no sleep disturbances Respiratory: no cough, no shortness of air, no recurring pulmonary infections Cardiovascular/Peripheral Vascular: No chest pain, No palpitations, no edema, no shortness of breath. Gastrointestinal: no new onset incontinence, normal bowel movements reported Genitourinary: no new onset incontinence Musculoskeletal: Back pain, leg pain Psychiatric: normal mood/ affect Neurological: [denies new onset weakness in extremities], [denies new onset balance issues] Objective:: Physical Exam General: Alert and oriented x3, no acute distress, pleasant and cooperative, [on room air] Lungs: Resps E/U, Symmetrical chest expansion, Eyes: PERRL Musculoskeletal: Flexion and extension of lumbar spine somewhat guarded secondary to pain, deep tendon reflexes normal, strength in upper and lower extremities [5/5], [abnormal gait noted] Neurological: speech clear, curb attendant equal, no gross sensory deficits Assessment:: Degenerative disc disease lumbar spine lumbar radiculopathy symptoms, lumbar facet arthropathy, CRPS type II and sacroiliitis Plan:: We will continue his tramadol 50 mg 2 tabs p.o. 3 times daily, gabapentin 600 mg we will increase this to 4 times a day, will increase his Cymbalta to 60 mg/day. I will see him in 1 month to go over his drug screen with him. He has been instructed to call the office if he has any issues prior to his next appointment. Dr. Crowder has reviewed this note and agrees with this plan of care. This note was dictated using voice recognition software and may contain errors or omissions Patient has been prescribed a controlled substance after being counseled on the medication, medication safety, and possible side effects. JIMMIE report has been obtained and reviewed prior to prescription and found to be appropriate. Opioid contract was reviewed and signed by the patient, and that they have agreed to all of the terms set forth by our compliance program. [facility] History I have reviewed the patient's past medical history: Yes Medical History: Reports:: Chronic Obstructive Pulmonary Disease (COPD), Coronary Artery Disease, Hypertension Denies:: Cancer, Diabetes Mellitus Type 1, Diabetes Mellitus Type 2, Internal Pacemaker, MRSA, Seizures *Have you ever received a pneumonia vaccine?: Yes *Have you received a flu vaccine this season?: Yes Other Medical History: Denies: Blood Transfusion Reaction (n/a) Other Surgeries: Yes: Appendectomy. No: Pacemaker Amputation: No Fractures: No - *Social History Smoking Status: Current every day smoker Tobacco Type: cigarettes # Packs/Day (cigarettes): 1 #Yrs smoked (if former smoker): 30 Alcohol Intake: never *Occupational Status:: other Housing: house Household Members: spouse, children *Travel in the last 8 weeks: None Family Hx:: Coronary Artery Disease
== END ==
PROVIDERS: PCP Family Medicine; Visit Provider Clinical Nurse Specialist Family Health
DX: M51.16 Intervertebral disc disorders with radiculopathy, lumbar region (principal); M54.06 Panniculitis affecting regions of neck and back, lumbar region; M46.1 Sacroiliitis, not elsewhere classified; G57.70 Causalgia of unspecified lower limb
CPT/HCPCS: 99212; G0463

== ENCOUNTER → 2020-05-30 11:05 | Outpatient (POV) | payer MEDICAID, SELFPAY ==
[2020-05-30 11:08] VITALS: BP 144/74; PULSE 74; RESP 18; O2SAT 98; BMI 25.0
--- NOTE | 2020-05-30 11:47 | HMH.PAINSOAP ---
[facility] Pain Management SOAP Note Subjective:: Patient is a 54-year-old white male who presents today for follow-up. Patient is on Cymbalta, tramadol, gabapentin. Patient had an inappropriate drug screen showing positive for oxycodone. I discussed with him that this is a breech of contract. He understands. I also discussed that I want him to be seen for psychological evaluation within 1 months for either neurostimulator or pain pump. Patient agrees. [facility] #[id number] reviewed. Patient is due refills today. Patient and I discussed that I will continue his medication at this time we will drug screen him today if he has any additionally inappropriate drug screens we will discontinue all controlled substances. ROS General: no recent weight change, no fever, no sleep disturbances Respiratory: no cough, no shortness of air, no recurring pulmonary infections Cardiovascular/Peripheral Vascular: No chest pain, No palpitations, no edema, no shortness of breath. Gastrointestinal: no new onset incontinence, normal bowel movements reported Genitourinary: no new onset incontinence Musculoskeletal: Back pain, leg pain Psychiatric: normal mood/ affect Neurological: [denies new onset weakness in extremities], [denies new onset balance issues] Objective:: Physical Exam General: Alert and oriented x3, no acute distress, pleasant and cooperative, [on room air] Lungs: Resps E/U, Symmetrical chest expansion, Eyes: PERRL Musculoskeletal: Flexion and extension of lumbar spine somewhat guarded secondary to pain, deep tendon reflexes normal, strength in upper and lower extremities [5/5], [abnormal gait noted] Neurological: speech clear, operations supervisor 2nd shift equal, no gross sensory deficits Assessment:: Degenerative disc disease lumbar spine lumbar radiculopathy, back pain, CRPS type II and sacroiliitis Plan:: We will continue his tramadol 50 mg 2 tabs p.o. 3 times daily, gabapentin 600 mg 1 p.o. 4 times daily we will continue his Cymbalta 60 mg daily we will see him back in 1 month. By that time he will have a psychological evaluation and we will move forward with an implantable therapy. Dr. Crowder has reviewed this note and agrees with this plan of care. This note was dictated using voice recognition software and may contain errors or omissions [facility] History I have reviewed the patient's past medical history: Yes Medical History: Reports:: Chronic Obstructive Pulmonary Disease (COPD), Coronary Artery Disease, Hypertension Denies:: Cancer, Diabetes Mellitus Type 1, Diabetes Mellitus Type 2, Internal Pacemaker, MRSA, Seizures *Have you ever received a pneumonia vaccine?: Yes *Have you received a flu vaccine this season?: Yes Other Medical History: Denies: Blood Transfusion Reaction (n/a) Other Surgeries: Yes: Appendectomy. No: Pacemaker Amputation: No Fractures: No - *Social History Smoking Status: Current every day smoker Tobacco Type: cigarettes # Packs/Day (cigarettes): 1 #Yrs smoked (if former smoker): 30 Alcohol Intake: never *Occupational Status:: other Housing: house Household Members: spouse, children *Travel in the last 8 weeks: None Family Hx:: Coronary Artery Disease
== END ==
PROVIDERS: PCP Family Medicine; Visit Provider Clinical Nurse Specialist Family Health
DX: M51.16 Intervertebral disc disorders with radiculopathy, lumbar region (principal); M46.1 Sacroiliitis, not elsewhere classified; G57.70 Causalgia of unspecified lower limb
CPT/HCPCS: 99212; G0463

== ENCOUNTER → 2020-07-21 12:38 | Outpatient (POV) | payer MEDICAID, SELFPAY ==
[2020-07-21 12:48] VITALS: BP 132/85; PULSE 74; RESP 18; O2SAT 98; BMI 24.4
--- NOTE | 2020-07-25 08:25 | HMH.PAINSOAP ---
[facility] Pain Management SOAP Note Subjective:: Patient is a pleasant 55-year-old white male who presents today for follow-up. Patient is currently being medically managed with tramadol, gabapentin, Cymbalta. Patient is awaiting his psychological evaluation for neurostimulator. Overall patient doing well. Patient's Timothy reviewed per [employer]. He rates his pain today an 8 out of 10. ROS General: no recent weight change, no fever, no sleep disturbances Respiratory: no cough, no shortness of air, no recurring pulmonary infections Cardiovascular/Peripheral Vascular: No chest pain, No palpitations, no edema, no shortness of breath. Gastrointestinal: no new onset incontinence, normal bowel movements reported Genitourinary: no new onset incontinence Musculoskeletal: Back pain, leg pain Psychiatric: normal mood/ affect Neurological: [denies new onset weakness in extremities], [denies new onset balance issues] Objective:: Physical Exam General: Alert and oriented x3, no acute distress, pleasant and cooperative, [on room air] Lungs: Resps E/U, Symmetrical chest expansion, Eyes: PERRL Musculoskeletal: Flexion and extension of lumbar spine somewhat guarded secondary to pain, deep tendon reflexes normal, strength in upper and lower extremities [5/5], [abnormal gait noted] Neurological: speech clear, adult literacy teacher equal, no gross sensory deficits Assessment:: Degenerative disc disease lumbar spine lumbar radiculopathy, back pain, CRPS type II Plan:: We will continue his Cymbalta, tramadol, gabapentin he will move forward with his psychological evaluation we will see him back in 3 months reassess his symptoms at that time he has been instructed to call the office if he has any issues prior to his next appointment. Dr. Crowder has reviewed this note and agrees with this plan of care. This note was dictated using voice recognition software and may contain errors or omissions [facility] History I have reviewed the patient's past medical history: Yes Medical History: Reports:: Chronic Obstructive Pulmonary Disease (COPD), Coronary Artery Disease, Hypertension Denies:: Cancer, Diabetes Mellitus Type 1, Diabetes Mellitus Type 2, Internal Pacemaker, MRSA, Seizures *Have you ever received a pneumonia vaccine?: Yes *Have you received a flu vaccine this season?: Yes Other Medical History: Denies: Blood Transfusion Reaction (n/a) Other Surgeries: Yes: Appendectomy. No: Pacemaker Amputation: No Fractures: No - *Social History Smoking Status: Current every day smoker Tobacco Type: cigarettes # Packs/Day (cigarettes): 1 #Yrs smoked (if former smoker): 30 Alcohol Intake: never *Occupational Status:: other Housing: house Household Members: spouse, children *Travel in the last 8 weeks: None Family Hx:: Coronary Artery Disease
== END ==
PROVIDERS: Visit Provider Clinical Nurse Specialist Family Health
DX: M51.16 Intervertebral disc disorders with radiculopathy, lumbar region (principal); G57.70 Causalgia of unspecified lower limb
CPT/HCPCS: 99212; G0463

== ENCOUNTER → 2020-07-21 13:22 | Outpatient (CLI) | payer MEDICAID, SELFPAY ==
--- NOTE | 2020-07-21 13:45 | XR_ITS ---
PROCEDURE: XR KNEE RT 3V CLINICAL INDICATION: RT KNEE PAIN COMPARISON: No exams were available for comparison FINDINGS: No fracture or dislocation. No lytic or blastic change. There is normal mineralization. The joint spaces are well-preserved. No significant degenerative/arthritic changes. No erosive changes evident. Other findings:Suprapatellar effusion is noted. IMPRESSION: Knee joint effusion Dictated by: Nico Siddiqui MD 07/21/2020 14:28 Nico Siddiqui MD in [place] 07/21/2020 14:28
== END ==
PROVIDERS: PCP Family Medicine; Visit Provider Clinical Nurse Specialist Family Health
DX: M25.561 Pain in right knee (principal)
CPT/HCPCS: 73562

== ENCOUNTER → 2020-10-20 12:48 | Outpatient (POV) | payer MEDICAID, SELFPAY ==
[2020-10-20 13:06] VITALS: BP 123/57; PULSE 67; RESP 18; O2SAT 97; BMI 24.4
--- NOTE | 2020-10-20 14:44 | HMH.PAINSOAP ---
[facility] Pain Management SOAP Note Subjective:: Patient is a 55-year-old white male who presents today for follow-up and medication refills. He has been treated for degenerative disc disease lumbar spine with lumbar radiculopathy symptoms and CRPS type II at his lower extremity. He rates his pain an 8 out of 10 today. He says he is not getting much relief with his tramadol, gabapentin and Cymbalta. He is reported to be awaiting a psychological evaluation. Patient does understand that we will not be increasing his medications and he will likely need to wean on this medication. We will discuss weaning the medication after his psychological evaluation to see if he is in a candidate for spinal cord stimulation. He is managed at this time with gabapentin 600 mg 1 tablet p.o. 3 times daily, tramadol 50 mg 2 tablets p.o. 3 times daily, Cymbalta 30 mg 1 tablet p.o. daily. His Jimmie #[id number] has been reviewed and is appropriate. Morphine equivalent is 0. He will undergo drug screen today. Review of Systems General: No recent weight changes, no fever, no sleep disturbances Respiratory: No cough, no shortness of air, no recurring pulmonary infections Cardiovascular/peripheral vascular: No chest pain, no palpitations, no edema, no shortness of breath Gastrointestinal: No new onset incontinence, normal bowel movements reported Genitourinary: No new onset incontinence Musculoskeletal: Chronic low back pain Psychiatric: Normal mood/affect Neurological: [Denies weakness in extremities], [denies balance issues] Objective:: Physical exam General: Alert and oriented x3, no acute distress, pleasant and cooperative, [on room air] Lungs: Respirations even and unlabored, symmetrical chest expansion Eyes: PERRL Musculoskeletal: Flexion and extension of [] lumbar spine somewhat guarded secondary to pain, deep tendon reflexes normal, strength in upper and lower extremities [5/5], [abnormal gait noted] Neurological: Speech clear, float nurse equal, no gross sensory deficit Assessment:: Degenerative disc disease lumbar spine with lumbar radiculopathy symptoms, CRPS type II lower extremity Plan:: We will schedule the patient for a 3-month follow-up. We will continue his tramadol 50 mg 2 tablets p.o. 3 times daily, gabapentin 610 mg 1 tablet p.o. 3 times daily, and Cymbalta 30 mg 1 tablet p.o. daily. Pending his psychological evaluation, we will need to decrease his medications in the future. If the patient decides not to undergo psychological evaluation he does understand we will likely need to wean his medications. Patient has been instructed to contact the clinic with any concerns before the next appointment. Dr. Crowder has reviewed this note and agrees with this plan of care. This note was dictated using voice recognition software and make contain errors or omissions. Regular local Patient has been prescribed a controlled substance after being counseled on the medication, medication safety, and possible side effects. JIMMIE report has been obtained and reviewed prior to prescription and found to be appropriate. Opioid contract was reviewed and signed by the patient, and that they have agreed to all of the terms set forth by our compliance program. Risks and benefits of the medication have been explained in detail to the patient. The patient has been advised to consult with his/her primary care provider and pharmacist regarding drug-drug interaction of medications currently prescribed. [facility] History I have reviewed the patient's past medical history: Yes Medical History: Reports:: Chronic Obstructive Pulmonary Disease (COPD), Coronary Artery Disease, Hypertension Denies:: Cancer, Diabetes Mellitus Type 1, Diabetes Mellitus Type 2, Internal Pacemaker, MRSA, Seizures *Have you ever received a pneumonia vaccine?: No *Have you received a flu vaccine this season?: No Other Medical History: Denies: Blood Transfusion Reaction (n/a) Other Surgeries: Yes: Appendec
== END ==
PROVIDERS: Visit Provider Clinical Nurse Specialist Family Health
DX: M51.16 Intervertebral disc disorders with radiculopathy, lumbar region (principal); G57.70 Causalgia of unspecified lower limb
CPT/HCPCS: 99212; G0463

== ENCOUNTER 2020-10-30 16:07 | Emergency (ER) | payer MEDICAID, SELFPAY ==
[2020-10-30 16:14] VITALS: PULSE 65; RESP 18; O2SAT 100; BMI 24.4
--- NOTE | 2020-10-30 16:53 | HMH.EDUTC ---
[facility] Dis[place] Clinical Impression: Right knee pain Qualifiers: Chronicity: acute Qualified Code(s): M25.561 - Pain in right knee Disposition: Home, Self-Care Condition on Discharge: Good Instructions: DI for Knee Pain Additional Instructions: Follow up with ortho for MRI Referrals: Rachid Sawyer MD [Staff Physician] - Time of Disposition: 17:03 Medical Decision Making - Timothy Inquiry Pt receiving controlled substance: No Vital Signs: 10/30/20 16:14 Pulse Rate [Left Radial] 65 Respiratory Rate 18 02 Sat by Pulse Oximetry 100 Oxygen Delivery Method Room Air [facility] HPI - General Stated complaint: pain in left leg Time Seen by Provider: 10/30/20 16:53 Mode of Arrival: Ambulatory Source of Information: Patient Limitations: No Limitations Description of Symptoms (Recalled from Triage Doc. by RN): c/o right knee pain. States that one month ago he woke up with his knee swollen and painful, his pain mgn doctor was going to send him to an orthopedic doctor but his knee improved so he didnt go. A few days ago he was walking down some steps and felt it twist and it started swelling. - History of Present Illness Provider Complaint: Pain and swelling in right knee. Started 3-4 days ago after stepping off of a step. Had similar episode about a month ago. Pain management sent him to ortho but it got better so he didn't go. Now knee is painful, swollen and giving out on him. Onset (ago): day(s) (4) Location: right, lower extremity Relieving factors: none Exacerbating factors: none Treatments prior to arrival: none - Related Data Home Medications Medication Instructions Recorded Confirmed Albuterol Sulfate [Proventil-HFA 1 - 2 puffs IH Q6HP PRN 04/16/17 07/18/18 90mcg/puff Inh] Atorvastatin Calcium [Atorvastatin 20 mg PO DAILY 04/16/17 07/18/18 20mg Tab] Fenofibrate 160 mg PO DAILY 04/16/17 07/18/18 Fluticasone/Vilanterol [Breo 1 each IH DAILY 04/16/17 07/18/18 Ellipta 100-25 Mcg INH] Meloxicam [Mobic 7.5mg Tab] 7.5 mg PO BID 04/16/17 07/18/18 Metoprolol Succinate 25 mg PO DAILY 04/16/17 07/18/18 Nitroglycerin 0.6 mg SL NEEDED PRN 04/16/17 07/18/18 lisinopriL [Lisinopril 5mg Tablet] 5 mg PO DAILY 04/16/17 07/18/18 Previous Rx's Medication Instructions Recorded Duloxetine HCl [Cymbalta] 60 mg PO DAILY #30 capsule. 04/18/20 Gabapentin [Neurontin 600mg 600 mg PO QID #120 tab 05/30/20 tablet] Tramadol HCl [Tramadol 50mg 50 mg PO TID PRN #180 tab 05/30/20 Tab] Duloxetine HCl [Cymbalta] 60 mg PO DAILY #30 capsule. 07/21/20 Gabapentin [Neurontin 600mg 600 mg PO QID #120 tab 07/21/20 tablet] Tramadol HCl [Tramadol 50mg 50 mg PO TID #180 tab 07/21/20 Tab] Duloxetine HCl [Cymbalta] 60 mg PO DAILY 30 Days #30 10/20/20 capsule. Gabapentin 600 mg PO TID 30 Days #90 tab 10/20/20 Tramadol HCl [Tramadol 50mg 50 mg PO TID 30 Days #180 tab 10/20/20 Tab] Allergies Allergy/AdvReac Type Severity Reaction Status Date / Time No Known Allergies Allergy Verified 05/27/18 14:16 [facility] History - Hepatitis A Screen Attestation statement:: This patient has been screened for Hepatitis A risk factors. I have reviewed the patient's past medical history: Yes Medical History: Reports:: Chronic Obstructive Pulmonary Disease (COPD), Coronary Artery Disease, Hypertension Denies:: Cancer, Diabetes Mellitus Type 1, Diabetes Mellitus Type 2, Internal Pacemaker, MRSA, Seizures Other Medical History: Denies: Blood Transfusion Reaction (n/a) Other Surgeries: Yes: Appendectomy. No: Pacemaker Amputation: No Fractures: No - Social History Smoking Status: Current every day smoker Tobacco Type: cigarettes # Packs/Day (cigarettes): 1 #Yrs smoked (if former smoker): 30 Alcohol Intake: never Occupational Status: unemployed Housing: house Household Members: spouse, children Family Hx:: Coronary Artery Disease ROS Obtained: Yes All systems reviewed & no a
[2020-10-30 17:00] VITALS: BMI 24.4
[2020-10-30 17:04] VITALS: BP 147/84; PULSE 78; RESP 18; TEMP 36.8; O2SAT 98; BMI 24.4
[2020-10-30 17:15] VITALS: BP 143/71; PULSE 76; RESP 18; TEMP 36.8; O2SAT 97
== END 2020-10-30 17:31 | disposition home or self-care (01) ==
LOC: ER 16:16 → UTC 16:17
PROVIDERS: Emergency Provider Physician Assistant; PCP Family Medicine
DX: M25.561 Pain in right knee (principal); I25.10 Atherosclerotic heart disease of native coronary artery without angina pectoris; I10 Essential (primary) hypertension; J44.9 Chronic obstructive pulmonary disease, unspecified; F17.210 Nicotine dependence, cigarettes, uncomplicated; Z79.899 Other long term (current) drug therapy
CPT/HCPCS: 99202; G0463

== ENCOUNTER → 2021-01-19 13:04 | Outpatient (POV) | payer MEDICAID, SELFPAY ==
[2021-01-19 13:27] VITALS: BP 138/80; PULSE 85; RESP 18; O2SAT 99; BMI 24.4
--- NOTE | 2021-01-19 13:31 | HMH.PAINSOAP ---
[facility] Pain Management SOAP Note Subjective:: Patient is a 55-year-old white male who presents today for medication refills. 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 Patient is getting tramadol 50 mg 2 tablets p.o. 3 times daily and gabapentin 600 mg 1 tablet p.o. 3 times daily. He does not feel the medications are giving him significant relief. He does rate his pain a 7 out of 10 today. He is not interested in SCS therapy for his CRPS. He says that he has read information regarding the devices and has not heard good things regarding implanted devices. He does not feel tramadol is giving him significant relief at this time. We did discuss medication regimen and that we would not be able to change the medicine at this time. Injections do not give the patient relief. [facility] #[id number] has been reviewed and is appropriate. Drug screens have been appropriate. Morphine equivalent is 30. Review of Systems General: No recent weight changes, no fever, no sleep disturbances Respiratory: No cough, no shortness of air, no recurring pulmonary infections Cardiovascular/peripheral vascular: No chest pain, no palpitations, no edema, no shortness of breath Gastrointestinal: No new onset incontinence, normal bowel movements reported Genitourinary: No new onset incontinence Musculoskeletal: Low back pain with radiation into lower extremities Psychiatric: [Normal mood/affect] Neurological: [Denies weakness in extremities], [denies balance issues] Objective:: Physical exam General: Alert and oriented x3, no acute distress, pleasant and cooperative Lungs: Respirations even and unlabored, symmetrical chest expansion Eyes: PERRL Musculoskeletal: Flexion and extension of lumbar [spine] somewhat guarded secondary to pain, [antalgic gait noted] Neurological: Speech clear, no gross sensory deficit Assessment:: Degenerative disc disease lumbar spine CRPS type II lower extremity Plan:: Patient I had a long discussion concerning his oral medications. We will not be changing him to other medications at this time. We did discuss we can attempt to increase his tramadol. He denies any seizure history. He has been advised that tramadol can lower his threshold for seizures. He would like to proceed with increasing the medication. We will continue patient on tramadol 50 mg 2 tablets p.o. 4 times daily. We will increase his gabapentin to 600 mg 1 tablet p.o. 4 times daily. We will see him back in a month for reevaluation of symptoms. Patient's morphine equivalent is 30. We will order Narcan. Risks and benefits of the medication have been explained in detail to the patient. The patient does understand the risk of dependence on the medication when given over a prolonged period. Patient has been advised of risks of oversedation with the prescribed medication. Narcan has been offered to the paitent in the event of oversedation. Patient has been advised that a family member should also be educated regarding administration of Narcan. The patient has been advised to consult with his/her primary care provider and pharmacist regarding drug-drug interaction of medications currently prescribed. Patient has been prescribed a controlled substance after being counseled on the medication, medication safety, and possible side effects. JIMMIE report has been obtained and reviewed prior to prescription and found to be appropriate. Opioid contract was reviewed and signed by the patient, and that they have agreed to all of the terms set forth by our compliance program. Patient has been instructed to contact the clinic with any concerns before the next appointment. Dr. Crowder has reviewed this note and agrees with this plan of care. This note was dictated using voice recognition software and make contain errors or omissions. [facility] History I have rev
== END ==
PROVIDERS: Visit Provider Clinical Nurse Specialist Family Health
DX: M51.36 Other intervertebral disc degeneration, lumbar region (principal); G57.70 Causalgia of unspecified lower limb
CPT/HCPCS: 99212; G0463

== ENCOUNTER → 2021-04-20 12:59 | Outpatient (POV) | payer MEDICAID, SELFPAY ==
[2021-04-20 13:23] VITALS: BP 136/63; PULSE 68; RESP 18; O2SAT 95; BMI 23.7
--- NOTE | 2021-04-20 14:41 | HMH.PAINSOAP ---
[facility] Pain Management SOAP Note Subjective:: Patient is a 55-year-old white male who presents today for medication refills. He does say he is currently out of medication. 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 We did give the patient tramadol 50 mg 2 tablets p.o. 4 times daily and gabapenti 800 mg 1 tablet p.o. 4 times daily. He denies any side effects and does report the medicine to be working well for him at this time. He is having some arthritic type pain in his hips. He has had injective therapy which is not giving him significant relief in the past. He does rate his pain a 7 out of 10. Patient does care for his disabled child. He says that his son is paralyzed. He does do heavy lifting daily. [facility] #[id number] has been reviewed and appropriate. Morphine equivalent is 40. Review of Systems General: No recent weight changes, no fever, no sleep disturbances Respiratory: No cough, no shortness of air, no recurring pulmonary infections Cardiovascular/peripheral vascular: No chest pain, no palpitations, no edema, no shortness of breath Gastrointestinal: No new onset incontinence, normal bowel movements reported Genitourinary: No new onset incontinence Musculoskeletal: Low back pain with radiation into lower extremity Psychiatric: [Normal mood/affect] Neurological: [Denies weakness in extremities], [denies balance issues] Objective:: Physical exam General: Alert and oriented x3, no acute distress, pleasant and cooperative Lungs: Respirations even and unlabored, symmetrical chest expansion Eyes: PERRL Musculoskeletal: Flexion and extension of lumbar [spine] somewhat guarded secondary to pain, [antalgic gait noted] Neurological: Speech clear, no gross sensory deficit Assessment:: Degenerative disc disease lumbar spine with lumbar radiculopathy symptoms, CRPS type II lower extremity Plan:: We will continue patient on tramadol 50 mg 1 tablet p.o. 4 times daily and gabapentin 800 mg 1 tablet p.o. 4 times daily. We will give him 3 months medication and see him back in the clinic in 3 months for further evaluation. ORT is minimal risk,. Risks and benefits of the medication have been explained in detail to the patient. The patient does understand the risk of dependence on the medication when given over a prolonged period. Patient has been advised of risks of oversedation with the prescribed medication. Narcan has been offered to the paitent in the event of oversedation. Patient has been advised that a family member should also be educated regarding administration of Narcan. The patient has been advised to consult with his/her primary care provider and pharmacist regarding drug-drug interaction of medications currently prescribed. Patient has been prescribed a controlled substance after being counseled on the medication, medication safety, and possible side effects. JIMMIE report has been obtained and reviewed prior to prescription and found to be appropriate. Opioid contract was reviewed and signed by the patient, and that they have agreed to all of the terms set forth by our compliance program. Patient has been instructed to contact the clinic with any concerns before the next appointment. Dr. Crowder has reviewed this note and agrees with this plan of care. This note was dictated using voice recognition software and make contain errors or omissions. [facility] History I have reviewed the patient's past medical history: Yes Medical History: Reports:: Chronic Obstructive Pulmonary Disease (COPD), Coronary Artery Disease, Hypertension Denies:: Cancer, Diabetes Mellitus Type 1, Diabetes Mellitus Type 2, Internal Pacemaker, MRSA, Seizures *Have you ever received a pneumonia vaccine?: No *Have you received a flu vaccine this season?: No Other Medical History: Denies: Blood Transfusion Reaction (n/a) Other Surgeries: Yes: Appendectomy. No: Pacemaker Amputation: No Fract
== END ==
PROVIDERS: Visit Provider Clinical Nurse Specialist Family Health
DX: M51.16 Intervertebral disc disorders with radiculopathy, lumbar region (principal); G57.70 Causalgia of unspecified lower limb
CPT/HCPCS: 99212; G0463

== ENCOUNTER → 2021-07-20 11:11 | Outpatient (POV) | payer MEDICAID, SELFPAY ==
[2021-07-20 11:35] VITALS: BP 113/49; PULSE 66; RESP 18; TEMP 36.7; O2SAT 98; BMI 24.4
--- NOTE | 2021-07-20 12:56 | P.CONS_ITS ---
[facility] Pain Management SOAP Note Subjective:: Patient is a pleasant 56-year-old male who is here for medication refill and follow-up. 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 Patient is being managed with tramadol 50 mg 2 tablets 4 times a day, gabapentin 800 mg 4 times a day. Patient denies any side effects from the medications. Patient denies any changes to the location and type of pain. Patient states that this is adequately helping manage their pain. Rates pain as 7 out of 10. [facility] number [id number] with an active morphine equivalent 0. Drug screens have been reviewed and appropriate. Review of Systems: General: No recent weight changes, no fever, no sleep disturbances Respiratory: No cough, no shortness of air, no recurring pulmonary infections Cardiovascular/peripheral vascular: No chest pain, no palpitations, no edema, no shortness of breath Gastrointestinal: No new onset incontinence, normal bowel movements reported Genitourinary: No new onset incontinence Musculoskeletal: Low back pain, leg pain Psychiatric: [Normal mood/affect] Neurological: [Denies weakness in extremities], [denies balance issues] Objective:: Physical Exam: General: Alert and oriented x3, no acute distress, pleasant and cooperative, [on room air] Lungs: Respirations even and unlabored, symmetrical chest expansion Eyes: PERRL Musculoskeletal: Flexion and extension of lumbar [spine] somewhat guarded secondary to pain, [antalgic gait noted]; Neurological: Speech clear, no gross sensory deficit Assessment:: Chronic low back pain CRPS type II lower extremity Plan:: We will continue the patient's tramadol 50 mg 2 tablets 4 times a day and gabapentin 800 mg 4 times a day. We will provide the patient with 3 months of refills. We would like to see the patient back in 3 months for follow-up and ree valuation of chronic pain syndrome. Patient has been advised of risks of oversedation with the prescribed medication. Narcan has been offered to the patient in the event of oversedation. Patient has been advised that a family member should also be educated regarding administration of Narcan. Patient has been instructed to contact the clinic with any concerns before the next appointment. Dr. Crowder has reviewed this note and agrees with this plan of care. This note was dictated using voice recognition software and make contain errors or omissions. [facility] History Medical History: Reports:: Chronic Obstructive Pulmonary Disease (COPD), Coronary Artery Disease, Hypertension Denies:: Cancer, Diabetes Mellitus Type 1, Diabetes Mellitus Type 2, Internal Pacemaker, MRSA, Seizures *Have you ever received a pneumonia vaccine?: No *Have you received a flu vaccine this season?: No Other Medical History: Denies: Blood Transfusion Reaction (n/a) Other Surgeries: Yes: Appendectomy. No: Pacemaker Amputation: No Fractures: No - *Social History Smoking Status: Current every day smoker Tobacco Type: cigarettes # Packs/Day (cigarettes): 1 #Yrs smoked (if former smoker): 30 Alcohol Intake: never *Occupational Status:: unemployed Housing: house Household Members: spouse, children *Travel in the last 8 weeks: None Family Hx:: Coronary Artery Disease
== END ==
PROVIDERS: Visit Provider Student in an Organized Health Care Education/Training Program
DX: M54.50 Low back pain, unspecified (principal); G89.29 Other chronic pain; G57.70 Causalgia of unspecified lower limb
CPT/HCPCS: 99212; G0463

== ENCOUNTER → 2021-11-02 09:45 | Outpatient (POV) | payer MEDICAID, SELFPAY ==
[2021-11-02 10:01] VITALS: BP 126/75; PULSE 65; RESP 18; TEMP 36.7; O2SAT 98; BMI 23.0
--- NOTE | 2021-11-02 12:04 | P.CONS_ITS ---
[facility] Pain Management SOAP Note Subjective:: Patient is a pleasant 56-year-old male who is here for follow-up and medication refill. 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 Today he rates his pain as a 7 out of 10. He states the pain is all on the right SI area describing it as an ache that is constant. We have tried injective therapy in the past with minimal relief. He is managed with tramadol 50 mg 2 tabs 4 times a day, gabapentin 800 mg 4 times a day. He denies any side effects of this medication. He denies any change to the location of the type of pain. He states these medications do help manage his pain. Patient states he has tried [id number] Tylenol and ibuprofen with minimal relief as well as topical application of Biofreeze. His Timothy is [id number] with a morphine equivalent of 40. It has been reviewed and is appropriate. Review of Systems: General: No recent weight changes, no fever, no sleep disturbances Respiratory: No cough, no shortness of air, no recurring pulmonary infections Cardiovascular/peripheral vascular: No chest pain, no palpitations, no edema, no shortness of breath Gastrointestinal: No new onset incontinence, normal bowel movements reported Genitourinary: No new onset incontinence Musculoskeletal: Low back pain Psychiatric: [Normal mood/affect] Neurological: [Denies weakness in extremities], [denies balance issues] Objective:: Physical Exam: General: Alert and oriented x3, no acute distress, pleasant and cooperative Lungs: Respirations even and unlabored, symmetrical chest expansion Eyes: PERRL Musculoskeletal: Flexion and extension of lumbar [spine] somewhat guarded second reginald to pain, [antalgic gait noted] Neurological: Speech clear, no gross sensory deficit Assessment:: 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 She had a positive point tenderness along his right SI with a more lateral aspect. He was positive for LIS, Pilo's, [place]'s, Gaenslen's, compression and distraction during exam. His previous SI injections only gave minimal relief. I have discussed with the patient regarding a cluneal injection. Risk and benefits were discussed with the patient regarding this procedure. He would like to proceed forward with this injection. I will also order the patient a compounding cream at today's visit. We will schedule the patient for a right superior cluneal injection. Patient has been instructed to contact the clinic with any concerns before the next appointment. Dr. Crowder has reviewed this note and agrees with this plan of care. This note was dictated using voice recognition software and make contain errors or omissions. [facility] History I have reviewed the patient's past medical history: Yes Medical History: Reports:: Chronic Obstructive Pulmonary Disease (COPD), Coronary Artery Disease, Hypertension Denies:: Cancer, Diabetes Mellitus Type 1, Diabetes Mellitus Type 2, Internal Pacemaker, MRSA, Seizures *Have you ever received a pneumonia vaccine?: No *Have you received a flu vaccine this season?: No Other Medical History: Denies: Blood Transfusion Reaction (n/a) Other Surgeries: Yes: Appendectomy. No: Pacemaker Amputation: No Fractures: No - *Social History Smoking Status: Current every day smoker Tobacco Type: cigarettes # Packs/Day (cigarettes): 1 #Yrs smoked (if former smoker): 30 Alcohol Intake: never *Occupational Status:: other Housing: house Household Members: spouse, children *Travel in the last 8 weeks: None Family Hx:: C
== END ==
PROVIDERS: Visit Provider Student in an Organized Health Care Education/Training Program
DX: G57.70 Causalgia of unspecified lower limb (principal); M46.1 Sacroiliitis, not elsewhere classified; M54.50 Low back pain, unspecified; G89.29 Other chronic pain
CPT/HCPCS: 99212; G0463

== ENCOUNTER 2021-11-17 08:12 | Day surgery (SDC) | payer MEDICAID, SELFPAY ==
[2021-11-17 08:32] VITALS: BP 142/78; PULSE 59; TEMP 36.4; O2SAT 99; BMI 24.4
--- NOTE | 2021-11-17 08:58 | P.PCN_ITS ---
- Procedure Date: 11/17/21 Time: 08:58 Anesthesiologist:: Reji Cason CRNA Complications:: None Pre-procedure Diagnosis:: Right lumbar 4 5, 5 S1 facet arthropathy. Post-procedure Diagnosis:: Same Indications for Procedure:: This patient is a pleasant 52-year-old male who comes our clinic today with point tenderness over the right L4-5 and L5-S1 facet joint. He has had right SI joint injection with minimal relief if any. Today I we will inject the right L4-5 and the right 5 S1 facet joint. As well as cluneal nerve block. He rates his pain 7/10. He denies radicular symptoms. Procedure Details:: Informed consent was obtained and the risk and benefits of the procedure was explained to the patient. Patient was taken to the procedure room where nonin vasive monitors were placed, including noninvasive blood pressure cuff as well as pulse oximeter. The area over the lumbar spine was cleansed using chlorhexidine as a cleansing solution. I anesthetized the skin and subcutaneous tissues with 1% Lidocaine. I placed 22-gauge spinal needles into the facet joint/ medial branches of right L4-L5, and L5-S1. Needle placement was confirmed with fluoroscopy. After confirmation of needle placement, each site was injected with 1 mL of 1% lidocaine and 0.25 % Marcaine and 10 mg of Depo-Medrol. A total of 80 mg of depo medrol was used for bilateral medial branch blocks of left L4- 5, L5-S1. Patient tolerated the procedure without difficulty. There were no complications. Trigger point injection of the right superior posterior iliac crest. Using a 25-gauge needle the right posterior superior iliac crest was accessed and the solution of 4 cc of 0.25% Marcaine +1% lidocaine and 40 mg of Depo-Medrol was injected. Plan and Disposition:: I had a long discussion with the patient following both injections. Patient received essentially, minimal to no relief with each injection. I examined the patient thoroughly in the right pelvis area. It appears his right SI joint is inflamed. I realize the patient has had right SI joint injection in the past with minimal relief. However, he has extreme point tenderness over the right SI joint. He has right SI joint compression test positive. Positive Kayy's test right hip. Positive Gaenslen's tests right. The patient's lumbar MRI does show slight disc bulge at L4-5. However no nerve root impingement. Multilevel facet arthropathy. Lumbar spondylosis. I proposed to the patient he comes back next Saturday for a right SI joint repeat injection. He agrees. Wishes to proceed. We will schedule this for him today.
[2021-11-17 09:35] VITALS: BP 152/74; PULSE 52; RESP 20; O2SAT 99
== END 2021-11-17 09:35 | disposition home or self-care (01) ==
LOC: SC.PAINP 08:13
PROVIDERS: PCP Family Medicine; Visit Provider Nurse Anesthetist, Certified Registered
DX: M47.817 Spondylosis without myelopathy or radiculopathy, lumbosacral region (principal)
CPT/HCPCS: 20552; 64493; 64494; J1040

== ENCOUNTER → 2021-12-04 10:10 | Outpatient (POV) | payer MEDICAID, SELFPAY ==
[2021-12-04 10:24] VITALS: BP 111/78; PULSE 58; RESP 18; TEMP 36.6; O2SAT 97; BMI 24.4
--- NOTE | 2021-12-04 10:44 | EXP.PAIN.SOA ---
[facility] Pain Management SOAP Note Subjective:: Patient is a pleasant 56-year-old male that presents today for follow-up from medial branch block L4-L5 and L5-S1 and trigger point injection of right superior posterior iliac crest on 11/17/2021. We are currently treating the patient for degenerative disc disease of lumbar spine with lumbar radiculopathy symptoms, facet arthropathy, CRPS type II lower extremity, sacroiliitis. Patient states he only had minimal improvement with these injections. He stated that he may have gotten a day or so of relief however it was not significant. Patient rates his pain today a 8 out of 10. He states it is all in his low back that radiates into his right leg. Patient denies any new trauma or injury to the site. He denies any change to the location or type of pain he experiences. We have done multiple injections on him in the past however these injections have only shown minimal improvement. Patient is scheduled for a right SI injection tomorrow. Patient is currently managed with tramadol 50 mg 8 times a day and gabapentin 800 mg 4 times a day. Patient denies any side effects from these medications. He states these medications do help manage his pain. His Timothy is [id number]. It has been reviewed. Review of Systems: General: No recent weight changes, no fever, no sleep disturbances Respiratory: No cough, no shortness of air, no recurring pulmonary infections Cardiovascular/peripheral vascular: No chest pain, no palpitations, no edema, no shortness of breath Gastrointestinal: No new onset incontinence, normal bowel movements reported Genitourinary: No new onset incontinence Musculoskeletal: Low back pain, right leg pain Psychiatric: [Normal mood/affect] Neurological: [Denies weakness in extremities], [denies balance issues] Objective:: Physical Exam: General: Alert and oriented x3, no acute distress, pleasant and cooperative Lungs: Respirations even and unlabored, symmetrical chest expansion Eyes: PERRL Musculoskeletal: Flexion and extension of lumbar [spine] somewhat guarded secondary to pain, [antalgic gait noted]. Extreme point tenderness along right SI. Positive right Kayy's, Pilo's, Gaenslen's, compression, distraction exam Neurological: Speech clear, no gross sensory deficit Assessment:: Degenerative disc disease of lumbar spine with lumbar radiculopathy symptoms, facet arthropathy, CRPS type II lower extremity, sacroiliitis Plan:: Patient continues to have significant pain along his right SI. He had extreme point tenderness at right SI and a positive right Kayy's, Pilo's, Gaenslen's, compression and distraction exam during today's visit. Patient is already scheduled for a right SI on 12/05/2021. I will refill the patient's tramadol 50 mg 8 times a day and gabapentin 800 mg 4 times a day and give a 1 month supply of these medications. At her next visit we will do a urine drug screen. We may discuss with the patient regarding doing a referral to neurosurgery again. In previous he has been a nonsurgical candidate. Patient will follow-up back in clinic with reevaluation of symptoms following his right SI injection. Patient has been instructed to contact the clinic with any concerns before the next appointment. Dr. Crowder has reviewed this note and agrees with this plan of care. This note was dictated using voice recognition software and make contain errors or omissions. [facility] Social History Smoking Status: Current every day smoker tobacco type: cigarettes packs per day: 1 second hand exposure: Yes alcohol intake: never current occupational status: unemployed Travel in the last 8 weeks: None household members: spouse and children housing: house caffeine: Yes
== END | disposition home or self-care (01) ==
PROVIDERS: PCP Family Medicine; Visit Provider Nurse Practitioner Family
DX: M51.16 Intervertebral disc disorders with radiculopathy, lumbar region (principal); M46.1 Sacroiliitis, not elsewhere classified; M47.26 Other spondylosis with radiculopathy, lumbar region; G57.70 Causalgia of unspecified lower limb
CPT/HCPCS: 99212; G0463

== ENCOUNTER 2022-01-02 14:27 | Day surgery (SDC) | payer MEDICAID, SELFPAY ==
[2022-01-02 14:42] VITALS: BP 118/61; PULSE 60; RESP 18; TEMP 36.3; O2SAT 100; BMI 24.4
[2022-01-02 15:01] VITALS: BP 122/65; PULSE 59; RESP 18; O2SAT 99
[2022-01-02 15:02] VITALS: BP 122/65; PULSE 59; RESP 18; O2SAT 98
[2022-01-02 15:07] VITALS: BP 138/82; PULSE 60; RESP 18; O2SAT 100
--- NOTE | 2022-01-02 15:09 | EXP.PAIN.PRO ---
Procedure Date: 01/02/22 Time: 15:00 Anesthesiologist:: Reji Cason CRNA Complications:: None Pre-procedure Diagnosis:: Right sacroiliitis. Suspected right cluneal nerve entrapment Post-procedure Diagnosis:: Same. Indications for Procedure:: Patient is a pleasant 56-year-old male that comes to our injection clinic today for right cluneal nerve block. Patient has had right 4 5 and 5 S1 facet blocks with no relief. Patient has had right SI joint injection with no relief. Patient continues with right lumbar back pain right posterior hip pain that he describes as constant, dull, aching, sharp and stabbing at times. He rates the pain 8/10. Procedure Details:: Pre-procedure Diagnosis:: Superior cluneal nerve entrapment Post-procedure Diagnosis:: Same Indications for Procedure:: Patient is a pleasant 65-year-old female who returns our injection clinic for right superior cluneal nerve block.? This patient's had right SI joint injections with significant relief.? However, very temporary.? Relief lasting several days.? She presents our clinic today with similar SI joint pain.? However, it seems to be superior to the joint and more lateral.? We will inject the right superior cluneal nerve. Procedure Details:: Details of the procedure were explained to the patient.? The patient taken the procedure room placed in the prone position.? The area over the right posterior hip area was cleaned using chlorhexidine as a cleansing solution.? Using fluoroscopy guidance a marker was placed over the right superior posterior iliac crest.? The skin and subcutaneous tissue was anesthetized using 1% lidocaine and 25-gauge needle.? At this time using fluoroscopy guidance at 22-gauge 3-1/2 inches spinal needle was used to access the superior posterior iliac crest.? In a fanning fashion 2 cc of an injection containing 1% lidocaine and 40 mg of Depo-Medrol was injected in 3 separate areas covering the superior posterior iliac crest.? Needle was removed.? Band-Aid applied.? Patient tolerated the procedure without difficulty. Plan and Disposition:: Patient was discharged without incident. Plan and Disposition:: Patient was discharged without incident
== END 2022-01-02 15:07 | disposition home or self-care (01) ==
LOC: SC.PAINP 14:28
PROVIDERS: PCP Family Medicine; Visit Provider Nurse Anesthetist, Certified Registered
DX: M46.1 Sacroiliitis, not elsewhere classified (principal); G58.8 Other specified mononeuropathies
CPT/HCPCS: 64450; J1040

== ENCOUNTER → 2022-01-25 11:17 | Outpatient (POV) | payer MEDICAID, SELFPAY ==
[2022-01-25 12:09] VITALS: BP 135/71; PULSE 60; RESP 19; TEMP 36.8; O2SAT 99; BMI 24.5
--- NOTE | 2022-01-25 12:34 | EXP.PAIN.SOA ---
[facility] Pain Management SOAP Note Subjective:: Patient is a pleasant 56-year-old male who presents today for follow-up of right cluneal injection on 01/02/2022. 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 Today the patient rates his pain an 8 out of 10. He states the pain is all in his low back that radiates into his right leg. Patient states he did not get any relief of his symptoms following this injection. Patient states over the last 1 to 2 months he has had more pain in his hips in the mornings. Patient denies any new trauma or injury. Patient has tried multiple injective therapies with no improvement of his symptoms. Patient is also tried topical creams, heat and ice at home stretching and exercising for longer than 6 weeks with no improvement. Patient is currently managed with gabapentin 800 mg 4 times a day and tramadol 50 mg 8 times a day. Patient states he takes 2 pills 4 times a day. Patient is also prescribed compounding cream that he states he has not seen significant improvement with. His Timothy is [id number] with a morphine equivalent of 0. It has been reviewed and appropriate. Review of Systems: General: No recent weight changes, no fever, no sleep disturbances Respiratory: No cough, no shortness of air, no recurring pulmonary infections Cardiovascular/peripheral vascular: No chest pain, no palpitations, no edema, no shortness of breath Gastrointestinal: No new onset incontinence, normal bowel movements reported Genitourinary: No new onset incontinence Musculoskeletal: Low back pain, bilateral leg pain Psychiatric: [Normal mood/affect] Neurological: [Denies weakness in extremities], [denies balance issues] Objective:: Physical Exam: General: Alert and oriented x3, no acute distress, pleasant and cooperative Lungs: Respirations even and unlabored, symmetrical chest expansion Eyes: PERRL Musculoskeletal: Flexion and extension of [lumbar] [spine] somewhat guarded secondary to pain, [antalgic gait noted] Neurological: Speech clear, no gross sensory deficit FINDINGS: There is normal alignment. The spinal cord is at the T12-L1 level. L1-L2 and L2-L3 have an unremarkable appearance. L3-L4: Bulging disc along with facet and ligamentum flavum hypertrophy with bilateral lateral recess and foraminal narrowing. L4-5: Minimal bulging disc along with facet and ligamentum flavum hypertrophy with mild bilateral lateral recess and foraminal narrowing. L5-S1: Mild facet hypertrophic change with mild bilateral foraminal narrowing. No canal stenosis or extruded herniated disc evident. IMPRESSION: Mild bulging disc are present at L3-L4 and L4-5 facet and ligamentum flavum hypertrophy with mild bilateral lateral recess and foraminal narrowing. Lateral recess narrowing is more prominent at L3-L4. 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 Patient has limited range of motion of his lumbar spine during today's visit. Patient has tried and failed conservative measures such as oral medications, injective therapy, heat and ice, topical creams, at home stretching and exercise for longer than 6 weeks. I have counseled the patient that he may be a good candidate for a spinal cord stimulator trial. Risk and benefits of the procedure were discussed with the patient. Patient would like to proceed forward with this plan of care. We will schedule the patient for a psychiatric evaluation at today's visit with the plan to proceed forward for approval from insurance for the trial. I will also order a
== END | disposition home or self-care (01) ==
PROVIDERS: Visit Provider Nurse Practitioner Family
DX: M51.16 Intervertebral disc disorders with radiculopathy, lumbar region (principal); M46.1 Sacroiliitis, not elsewhere classified; G89.29 Other chronic pain; Z72.0 Tobacco use
CPT/HCPCS: 99212; G0463

== ENCOUNTER → 2022-06-07 14:11 | Outpatient (POV) | payer MEDICAID, SELFPAY ==
--- NOTE | 2022-06-07 14:49 | EXP.PAIN.SOA ---
[facility] Pain Management SOAP Note Subjective:: Patient is a pleasant 56-year-old male who presents today for MRI denial. 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 Today he rates his pain a 6 out of 10. Patient denies any new trauma or injury. Patient denies any change location or type of pain he experiences. Patient does state he continues to have pain in his low back with radiating symptoms into his lower extremities. He does state his right leg is primarily affected. Patient has tried multiple [id number] medications as well as topicals and heat and ice with minimal improvement. He has been prescribed compounding cream however he states he did not notice significant relief. He is currently managed with gabapentin 800 mg 4 times a day and tramadol 50 mg 8 times a day. Patient does take 2 tablets 4 times a day. Patient denies any side effects from this medication. He is requesting a refill at today's visit. Review of Systems: General: No recent weight changes, no fever, no sleep disturbances Respiratory: No cough, no shortness of air, no recurring pulmonary infections Cardiovascular/peripheral vascular: No chest pain, no palpitations, no edema, no shortness of breath Gastrointestinal: No new onset incontinence, normal bowel movements reported Genitourinary: No new onset incontinence Musculoskeletal: Low back pain Psychiatric: [Normal mood/affect] Neurological: [Denies weakness in extremities], [denies balance issues] Objective:: Physical Exam: General: Alert and oriented x3, no acute distress, pleasant and cooperative Lungs: Respirations even and unlabored, symmetrical chest expansion Eyes: PERRL Musculoskeletal: Flexion and extension of lumbar [spine] somewhat guarded secondary to pain, [antalgic gait noted] Neurological: Speech clear, no gross sensory deficit Assessment:: Degenerative disc disease of lumbar spine with lumbar radiculopathy symptoms, low back pain, right sacroiliitis, 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 I will refill his gabapentin 800 mg 4 times a day and tramadol 50 mg 8 times a day and provide a 1 month supply of this medication. I will also order the patient methocarbamol 750 mg twice daily and provide a 1 month supply of this medication. I will send for a evaluation and treatment for physical therapy of his low back pain. Following PT we will in the future resubmit for a lumbar MRI. Patient will return to clinic in 1 month for reevaluation of symptoms, medication refill and plan of care. Patient has been advised of risks of oversedation with the prescribed medication. Narcan has been offered to the patient in the event of oversedation. Patient has been advised that a family member should also be educated regarding administration of Narcan. Patient has been instructed to contact the clinic with any concerns before the next appointment. Dr. Crowder has reviewed this note and agrees with this plan of care. This note was dictated using voice recognition software and make contain errors or omissions. [facility] Disclaimer: The information contained in this section may have been updated after the patient was seen, as this information can be updated by other users. Medical History Coronary artery disease Hyperlipidemia Hypertension Surgical History (Updated 01/02/22 @ 14:43 by Adrianna Bunch RN) History of appendectomy Hx of CABG Family History Father Hyperlipidemia Hypertension Diabetes Mother Hyperlipidemia Hypertension Social History (Updated 01/02/22 @ 14:43 by Adrianna Bunch RN) Sm[place]
[2022-06-07 15:20] VITALS: BP 105/46; PULSE 60; RESP 18; O2SAT 97; BMI 25.0
== END | disposition home or self-care (01) ==
PROVIDERS: PCP Family Medicine; Visit Provider Nurse Practitioner Family
DX: M51.16 Intervertebral disc disorders with radiculopathy, lumbar region (principal); M46.1 Sacroiliitis, not elsewhere classified; G58.8 Other specified mononeuropathies
CPT/HCPCS: 99212; G0463

== ENCOUNTER 2022-06-13 08:03 | Outpatient (RCR) | payer MEDICAID, SELFPAY ==
--- NOTE | 2022-06-13 08:53 | HMH.PTOPEV ---
PT Outpatient Evaluation Rehab PT Outpatient Evaluation Start: 06/13/22 08:09 Freq: Status: Active Protocol: Document 06/13/22 08:09 PDESEROUX (Rec: 06/13/22 08:53 [email or web address] [id number]) E-signed By Reji Horn, PT Outpatient Therapy Subjective History Subjective History Pt. is a 56 year old male whom presents to [facility] in [place] for the initial evaluation this date( 06/13/22) w/ c/o chronic and constant R-sided lumbar/RLE P! , numbness, and weakness of insidious onset 2 years ago that has progressively gotten worse. Pt. 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 Diagnostic imaging positive for multiple bulging discs per pt. report. Pt. reports having no symptom relief w/ previous injections. Pt. reports symptoms will worsen at night when he is sitting in his recliner. Pt. reports having symptoms shoot inferiorly into the RLE to his digits. Pt. denies symptoms into the LLE. Pt. denies history of pacemaker, diabetes, cancer(self), latex nor medicational allergy. Current medications include Lisinopril, Metoprolol, Tramadol, Gabapentin, and a muscle relaxer. PMH includes appendectomy, open heart surgery, Hypertension. Chief Complaint Pain,Spasms,Stiff,Paresthesia, Weakness Symptom Type Ache,Sharp,Dull,Stabbing, Numbness,Shooting Symptoms Relieved By Nothing Symptoms Aggravated By Sitting,Bending/Stooping, Physical Activity,Twisting, Lifting Prior Functional Limitations None Current Functional Limitations Lifting,Desk Work/Reading, Driving,Sleeping,Sitting,
== END 2022-08-01 15:20 | disposition home or self-care (01) ==
LOC: PT 08:03
PROVIDERS: PCP Family Medicine; Visit Provider Nurse Practitioner Family
DX: M54.50 Low back pain, unspecified (principal)
CPT/HCPCS: 97163

== ENCOUNTER → 2022-08-10 11:05 | Outpatient (POV) | payer MEDICAID, SELFPAY ==
[2022-08-10 11:12] VITALS: BP 126/60; PULSE 79; RESP 20; O2SAT 94; BMI 24.4
--- NOTE | 2022-08-10 11:32 | EXP.PAIN.SOA ---
[facility] Pain Management SOAP Note Subjective:: Patient is a pleasant 57-year-old male who presents today for follow-up. 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 Today he rates his pain a 6 out of 10. Patient denies any new trauma or injury. He does state that he recently he has been experiencing bilateral elbow pain. He describes this as a toothache like sensation and has difficulty with certain range of motion exercises due to the pain. He states he has been using Biofreeze on it with minimal improvement. Patient also states his back pain is a continual issue. He describes this as an aching, throbbing sensation that is worse with increased activity. It does interfere with his ability to perform activities of daily living. Patient has tried multiple injections with minimal relief. Patient is currently managed with gabapentin 800 mg 4 times a day and tramadol 50 mg 8 times a day. Patient does take this medication as 2 tablets 4 times a day. Patient is also prescribed compounding cream. Patient denies trying this medication on his elbows. Patient states he does not need any refills at this time. At one of our last visits we had ordered physical therapy for him to be done in [place] however he states that he went 1 time and got nowhere with the evaluation. We also have discussed regarding sending him for a psychiatric evaluation for a pain pump trial however his mother had been sick and this had to be pushed off. Patient is interested in regetting everything started to proceed forward with the trial. His Timothy has been reviewed and is appropriate. Review of Systems: General: No recent weight changes, no fever, no sleep disturbances Respiratory: No cough, no shortness of air, no recurring pulmonary infections Cardiovascular/peripheral vascular: No chest pain, no palpitations, no edema, no shortness of breath Gastrointestinal: No new onset incontinence, normal bowel movements reported Genitourinary: No new onset incontinence Musculoskeletal: Low back pain, bilateral elbow pain Psychiatric: [Normal mood/affect] Neurological: [Denies weakness in extremities], [denies balance issues] Objective:: Physical Exam: General: Alert and oriented x3, no acute distress, pleasant and cooperative Lungs: Respirations even and unlabored, symmetrical chest expansion Eyes: PERRL Musculoskeletal: Flexion and extension of lumbar [spine] somewhat guarded secondary to pain, [antalgic gait noted] Neurological: Speech clear, no gross sensory deficit Assessment:: Degenerative disc disease of lumbar spine with lumbar radiculopathy symptoms, sacroiliitis, 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 I have recommended that we resend a new physical therapy evaluation and treatment to be done here at the hospital. I will order this at today's visit. I will also order the patient psychiatric evaluation with the plan to proceed forward with a pain pump trial if he is deemed an appropriate candidate. Patient does not need any refills on his medications at this time. I have also counseled the patient to use [id number] medications such as Tylenol and ibuprofen and the compounding cream to help provide additional relief for his bilateral elbow pain. Patient will return to clinic following his psychiatric evaluation for reevaluation of symptoms and plan of care. Patient has been instructed to contact the clinic with any concerns before the next appointment. Dr. Crowder has reviewed this note and agrees with this plan of care. This note was dictated using voice recognition software and make contain errors or omissions. [facility] Disclaimer: The information contained in this section may have been updated
== END ==
PROVIDERS: Visit Provider Nurse Practitioner Family
DX: M51.16 Intervertebral disc disorders with radiculopathy, lumbar region (principal); M46.1 Sacroiliitis, not elsewhere classified; M25.521 Pain in right elbow; M25.522 Pain in left elbow
CPT/HCPCS: 99212; G0463

== ENCOUNTER → 2023-02-01 10:51 | Outpatient (POV) | payer MEDICAID, SELFPAY ==
[2023-02-01 11:20] VITALS: BP 116/56; PULSE 57; RESP 18; O2SAT 97; BMI 25.0
--- NOTE | 2023-02-01 11:21 | EXP.PAIN.SOA ---
[facility] Pain Management SOAP Note Subjective:: Patient is a very pleasant 57-year-old male that comes our clinic today for a follow-up visit. Patient has not been seen since August 10, 2022. Patient would like to proceed with previously mentioned intrathecal pain pump trial patient has low back pain he describes as constant, dull, aching. Bilateral hip and leg radicular symptoms. Pain in his right knee joint secondary to meniscus tear. Patient's lumbar imaging shows multiple degenerative disc lumbar spine. Disc bulge lumbar spine multilevel. Lumbar radiculopathy symptoms. Bilateral sacroiliitis. He rates his pain today /. Patient continues taking gabapentin 800 mg 1 p.o. 4 times daily. Also tramadol 50 mg 8 times daily. We will proceed forward with psychiatric evaluation. Also, patient requesting right intra-articular knee injection. Patient has pain in his knee with ambulation. Pain with flexion and/or extension. Patient has been told in the past he has meniscus tear. However, patient has never had intra-articular knee injection. Objective:: Patient is awake alert [place] x3. In no acute distress. Flexion-extension lumbar spine somewhat guarded secondary to pain. Deep tendon reflexes upper lower extremities normal. There is no gross sensory deficit. Gait is normal. Assessment:: Degenerative disc lumbar spine multilevels. Lumbar radiculopathy bilateral sacroiliitis chronic right knee pain. Plan:: We will refill the patient's medication. Tramadol 50 mg #240. Gabapentin 800 mg 4 times daily. We will set up psychiatric evaluation. Patient will return in 1 month. His Timothy #[id number] is been reviewed and appropriate. [facility] Disclaimer: The information contained in this section may have been updated after the patient was seen, as this information can be updated by other users. Medical History Coronary artery disease Hyperlipidemia Hypertension Surgical History History of appendectomy Hx of CABG Family History Father Hyperlipidemia Hypertension Diabetes Mother Hyperlipidemia Hypertension Social History Smoking Status: Current every day smoker tobacco type: cigarettes packs per day: 1 second hand exposure: Yes alcohol intake: never substance use type: denies use current occupational status: other Travel in the last 8 weeks: None household members: spouse and children housing: house caffeine: Yes
== END | disposition home or self-care (01) ==
PROVIDERS: PCP Nurse Anesthetist, Certified Registered; Visit Provider Nurse Anesthetist, Certified Registered
DX: M51.16 Intervertebral disc disorders with radiculopathy, lumbar region (principal); M46.1 Sacroiliitis, not elsewhere classified; M25.561 Pain in right knee
CPT/HCPCS: 99212; G0463

== ENCOUNTER 2023-02-12 13:55 | Day surgery (SDC) | payer MEDICAID, SELFPAY ==
[2023-02-12 14:01] VITALS: BP 112/57; PULSE 61; RESP 16; O2SAT 96; BMI 24.4
[2023-02-12 14:05] VITALS: BP 131/52; PULSE 62; RESP 18; O2SAT 97
[2023-02-12 14:06] VITALS: BP 131/52; PULSE 62; RESP 18; O2SAT 97
[2023-02-12 14:08] VITALS: BP 131/62; PULSE 57; RESP 18; O2SAT 96
--- NOTE | 2023-02-12 14:08 | P.PCN_ITS ---
Procedure Date: 02/12/23 Time: 13:30 Anesthesiologist:: Reji Cason CRNA Complications:: None Pre-procedure Diagnosis:: DJD right knee. Chronic right knee pain. Post-procedure Diagnosis:: Same. Indications for Procedure:: Patient is a pleasant 57-year-old male comes our clinic today for right intra- articular knee injection. Patient complains of right knee pain that he describes as constant, dull, aching. He rates his pain 8/10. Patient describes having difficulty walking secondary to right knee pain. Procedure Details:: Procedure Details: Bilateral intra-articular knee injection Informed consent was obtained risk and benefits of the procedure were explained to the patient. Patient was taken the procedure room the right knee was prepped using ChloraPrep. A 25-gauge needle was used to inject 10 mL bupivacaine 0.25% and Depo-Medrol 40 mg into each knee. The patient tolerated the procedure well with no complications. Plan and Disposition:: Patient was discharged without incident.
== END 2023-02-12 14:08 | disposition home or self-care (01) ==
PROVIDERS: PCP Nurse Anesthetist, Certified Registered; Visit Provider Nurse Anesthetist, Certified Registered
DX: M17.11 Unilateral primary osteoarthritis, right knee (principal); M25.561 Pain in right knee; G89.29 Other chronic pain
CPT/HCPCS: 20610; J1040

== ENCOUNTER → 2023-05-08 09:46 | Outpatient (POV) | payer MEDICAID, SELFPAY ==
--- NOTE | 2023-05-08 10:16 | EXP.PAIN.SOA ---
[facility] Pain Management SOAP Note Subjective:: Patient is a pleasant 57-year-old male who presents today for medication refill and follow-up. We are currently treating the patient for degenerative disc disease of lumbar spine with lumbar radiculopathy symptoms, bilateral sacroiliitis, right knee pain. Today he rates his pain a 5 out of 10. Patient denies any new trauma or injury. He states he continues to have chronic pain throughout his back. Patient was previously sent for psychological evaluation for possible intrathecal pain pump trial however he states that he is still not heard from anybody regarding this visit. Patient is currently managed with gabapentin 800 mg 4 times a day and tramadol 50 mg 8 times a day. Patient denies any side effects from these medications. His Timothy is currently pending. Review of Systems: General: No recent weight changes, no fever, no sleep disturbances Respiratory: No cough, no shortness of air, no recurring pulmonary infections Cardiovascular/peripheral vascular: No chest pain, no palpitations, no edema, no shortness of breath Gastrointestinal: No new onset incontinence, normal bowel movements reported Genitourinary: No new onset incontinence Musculoskeletal: Low back pain Psychiatric: [Normal mood/affect] Neurological: [Denies weakness in extremities], [denies balance issues] Objective:: Physical Exam: General: Alert and oriented x3, no acute distress, pleasant and cooperative Lungs: Respirations even and unlabored, symmetrical chest expansion Eyes: PERRL Musculoskeletal: Flexion and extension of lumbar [spine] somewhat guarded secondary to pain, [antalgic gait noted] Neurological: Speech clear, no gross sensory deficit Assessment:: Degenerative disc disease of lumbar spine with lumbar radiculopathy symptoms, bilateral sacroiliitis, right knee pain Plan:: I will refill the patient's tramadol 50 mg 8 times a day and gabapentin 800 mg 4 times a day and provide a 3-month supply of this medication. I have counseled the patient that I will follow-up regarding the psychological evaluation and see if we can get him in to be scheduled for this as soon as possible. Patient will return to clinic in 3 months for reevaluation of symptoms and medication refill. I have counseled the patient to contact our office once he has completed his psychological evaluation for follow-up and plan of care. If the patient does have an appropriate psychological evaluation will we will proceed forward with the intrathecal pain pump trial at a future date. Risks and benefits of the medication have been explained in detail to the patient. The patient does understand the risk of dependence on the medication when given over a prolonged period. Patient has been advised of risks of oversedation with the prescribed medication. Narcan has been offered to the paitent in the event of oversedation. Patient has been advised that a family member should also be educated regarding administration of Narcan. The patient has been advised to consult with his/her primary care provider and pharmacist regarding drug-drug interaction of medications currently prescribed. Patient has been prescribed a controlled substance after being counseled on the medication, medication safety, and possible side effects. Opioid contract was reviewed and signed by the patient, and that they have agreed to all of the terms set forth by our compliance program. Patient has been instructed to contact the clinic with any concerns before the next appointment. Dr. Crowder has reviewed this note and agrees with this plan of care. This note was dictated using voice recognition software and make contain errors or omissions. [facility] Disclaimer: The information contained in this section may have been updated after the patient was seen, as this information can be updated by other users. Medical History Coronary artery disease Hyperlipidemia Hypertension Surgical History History of appendectomy Hx of CABG Family History Father Hyperlipidemia Hypertension Diabetes Mother Hyperlipidemia Hypertension Social History Smoking Status: Current every day smoker tobacco type: cigarettes packs per day: 1 second hand exposure: Yes alcohol intake: never substance use type: denies use current occupational status: other Travel in the last 8 weeks: None household members: spouse and children housing: house caffeine: Yes
[2023-05-08 12:30] VITALS: BP 159/66; PULSE 55; RESP 18; O2SAT 97; BMI 26.4
== END | disposition home or self-care (01) ==
PROVIDERS: PCP Family Medicine; Visit Provider Nurse Practitioner Family
DX: M51.16 Intervertebral disc disorders with radiculopathy, lumbar region (principal); M46.1 Sacroiliitis, not elsewhere classified; M25.561 Pain in right knee
CPT/HCPCS: 99212; G0463

== ENCOUNTER 2023-07-15 11:22 | Outpatient (POV) | payer MEDICAID, SELFPAY ==
[2023-07-15 11:32] VITALS: BP 113/61; PULSE 60; RESP 18; O2SAT 100; BMI 23.7
--- NOTE | 2023-07-15 11:44 | A.OFFVIS_ITS ---
[facility] Pain Management SOAP Note Subjective:: Patient is a pleasant 58-year-old male who presents today for medication refill and follow-up of psychological evaluation. We are currently treating the patient for degenerative disc disease of lumbar spine with lumbar radiculopathy symptoms, bilateral sacroiliitis, right knee pain. Today he rates his pain a 7 out of 10. Patient denies any new trauma or injury. He states he continues to have chronic pain throughout his back and does state that his hips have been bothering him lately. He states he is unsure if this is related to him compensating due to his chronic back pain. He did complete his psychological evaluation and does state that he would like to proceed forward with the pump trial. Patient has tried and failed conservative therapy such as oral medication, heat and ice, topicals, physical therapy, at home stretching exercises for longer than 6 weeks. Patient is currently managed with gabapentin 800 mg 4 times a day and tramadol 50 mg 8 times a day. Patient denies any side effects from these medications. His Timothy is currently pending. Review of Systems: General: No recent weight changes, no fever, no sleep disturbances Respiratory: No cough, no shortness of air, no recurring pulmonary infections Cardiovascular/peripheral vascular: No chest pain, no palpitations, no edema, no shortness of breath Gastrointestinal: No new onset incontinence, normal bowel movements reported Genitourinary: No new onset incontinence Musculoskeletal: Low back pain Psychiatric: [Normal mood/affect] Neurological: [Denies weakness in extremities], [denies balance issues] Objective:: Physical Exam: General: Alert and oriented x3, no acute distress, pleasant and cooperative Lungs: Respirations even and unlabored, symmetrical chest expansion Eyes: PERRL Musculoskeletal: Flexion and extension of lumbar [spine] somewhat guarded secondary to pain, [antalgic gait noted] Neurological: Speech clear, no gross sensory deficit Assessment:: Degenerative disc disease of lumbar spine with lumbar radiculopathy symptoms, bilateral sacroiliitis, right knee pain Plan:: I will refill the patient's tramadol 50 mg 1 to 2 tablets 4 times a day and gabapentin 800 mg 4 times a day and provide a 1 month supply of this medication. I have reviewed over the risk and benefits of the intrathecal pain pump trial with the patient and he would like to proceed forward with this plan of care. I have counseled the patient that he will have to decrease his tramadol usage by at least 50% 48 hours prior to this procedure date. Patient acknowledges understanding of this and agrees with this plan of care. Patient will be scheduled for a intrathecal pain pump trial under fluoroscopy. Risks and benefits of the medication have been explained in detail to the patient. The patient does understand the risk of dependence on the medication when given over a prolonged period. Patient has been advised of risks of oversedation with the prescribed medication. Narcan has been offered to the paitent in the event of oversedation. Patient has been advised that a family member should also be educated regarding administration of Narcan. The patient has been advised to consult with his/her primary care provider and pharmacist regarding drug-drug interaction of medications currently prescribed. Patient has been prescribed a controlled substance after being counseled on the medication, medication safety, and possible side effects. Opioid contract was reviewed and signed by the patient, and that they have agreed to all of the terms set forth by our compliance program. Patient has been instructed to contact the clinic with any concerns before the next appointment. Dr. Crowder has reviewed this note and agrees with this plan of c are. This note was dictated using voice recognition software and make contain errors or omissions. [facility] Disclaimer: The information contained in this section may have been updated after the patient was seen, as this information can be updated by other users. Medical History Coronary artery disease Hyperlipidemia Hypertension Surgical History History of appendectomy Hx of CABG Family History Father Hyperlipidemia Hypertension Diabetes Mother Hyperlipidemia Hypertension Social History Smoking Status: Current every day smoker tobacco type: cigarettes packs per day: 1 second hand exposure: Yes alcohol intake: never substance use type: denies use current occupational status: unemployed Travel in the last 8 weeks: None household members: spouse and children housing: house caffeine: Yes
== END 2023-07-15 23:59 | disposition home or self-care (01) ==
PROVIDERS: PCP Family Medicine; Visit Provider Nurse Practitioner Family
DX: M51.16 Intervertebral disc disorders with radiculopathy, lumbar region (principal); M46.1 Sacroiliitis, not elsewhere classified; M25.561 Pain in right knee
CPT/HCPCS: 99212; G0463

== ENCOUNTER 2023-09-06 13:07 | Outpatient (POV) | payer MEDICAID, SELFPAY ==
--- NOTE | 2023-09-06 14:05 | A.OFFVIS_ITS ---
[facility] Pain Management SOAP Note Subjective:: Patient is a pleasant 58-year-old male comes our clinic today for follow-up visit and medication refills. We are currently treating the patient for degenerative disc lumbar spine multilevels. Lumbar radiculopathy. Bilateral sacroiliitis. Chronic right knee pain. Patient reporting majority of his joints are achy. Has difficulty first thing in the morning regarding getting out of bed and getting going. He rates his pain today 7/10. He is currently being managed with gabapentin 800 mg 1 p.o. 4 times daily. Tramadol 50 mg 8 times daily. I discussed with him meloxicam 15 mg 1 p.o. daily. He is unsure as to whether he has had this in the past. However, he would like to proceed with the NSAID. Objective:: Patient is awake alert oriented x 3. In no acute distress. Flexion-extension cervical lumbar spine somewhat guarded secondary to pain. Deep tendon reflexes upper lower extremities normal. Motor strength upper and lower extremities normal. There is no gross sensory deficit. Gait is normal. Assessment:: Degenerative disc lumbar spine multilevels. Lumbar radiculopathy. Chronic right knee pain. Bilateral sacroiliitis. Plan:: Discussed in detail with the patient regarding medication refills. I will send his refills in for gabapentin 800 mg 1 p.o. 4 times daily. Tramadol 50 mg 8 times daily. I will add meloxicam 15 mg 1 p.o. daily. He will return to see us in 30 days. [facility] Disclaimer: The information contained in this section may have been updated after the patient was seen, as this information can be updated by other users. Medical History Coronary artery disease Hyperlipidemia Hypertension Surgical History History of appendectomy Hx of CABG Family History Father Hyperlipidemia Hypertension Diabetes Mother Hyperlipidemia Hypertension Social History Smoking Status: Current every day smoker tobacco type: cigarettes packs per day: 1 second hand exposure: Yes alcohol intake: never substance use type: denies use current occupational status: unemployed Travel in the last 8 weeks: None household members: spouse and children housing: house caffeine: Yes
[2023-09-06 14:11] VITALS: BP 137/48; PULSE 50; RESP 16; O2SAT 100; BMI 23.7
== END 2023-09-06 23:59 | disposition home or self-care (01) ==
PROVIDERS: PCP Family Medicine; Visit Provider Nurse Anesthetist, Certified Registered
DX: M51.16 Intervertebral disc disorders with radiculopathy, lumbar region (principal); M25.561 Pain in right knee; G89.29 Other chronic pain; M46.1 Sacroiliitis, not elsewhere classified
CPT/HCPCS: 99212; G0463

== ENCOUNTER 2023-09-20 17:30 | Emergency (ER) | payer MEDICAID, SELFPAY ==
[2023-09-20 17:45] VITALS: BP 166/65; PULSE 79; RESP 18; TEMP 37; O2SAT 96; BMI 22.6
--- NOTE | 2023-09-20 17:51 | XR_ITS ---
PROCEDURE INFORMATION: Exam: XR Chest Exam date and time: 09/20/2023 6:01 PM Age: 58 years old Clinical indication: Cough; Additional info: Cough, SOB TECHNIQUE: Imaging protocol: Radiologic exam of the chest. Views: 2 views. COMPARISON: No relevant prior studies available. FINDINGS: Lungs: Mild ill-defined opacities at both lung bases. Pleural spaces: Normal. No pleural effusion. No pneumothorax. Heart/Mediastinum: Status post CABG. Calcified mediastinal lymph nodes. No cardiomegaly. Bones/joints: Status post sternotomy. IMPRESSION: Mild ill-defined opacities at both lung bases could be due to atelectasis, aspiration, or atypical pneumonia.
[2023-09-20 18:03] LABS: Coronavirus 19, PCR Not Detected (NotDetected); Influenza A, PCR Not Detected (NotDetected); Influenza B, PCR Not Detected (NotDetected)
[2023-09-20] MEDS: cefTRIAXone 1GM VIAL 1 GM IM (18:45)
[2023-09-20] MEDS: LIDOCAINE 1% 5ML PF VIAL IM (18:45)
[2023-09-20] MEDS: METHYLPREDNISOLONE SOD SUCC 125MG VIAL 125 MG IM (18:45)
--- NOTE | 2023-09-20 18:51 | ED_ITS ---
Discharge Plan Disposition Patient Disposition: Home, Self-Care Condition: Good Prescriptions Prescriptions: New azithromycin [Zithromax] 250 mg tablet See Rx Instructions .ROUTE .COMPLEX Qty: 6 0RF Rx Instructions: For 250 mg dose pack: take 500 mg today (day 1), then 250 mg for 4 days (days 2-5) doxycycline monohydrate 100 mg tablet 100 mg PO BID Qty: 20 0RF prednisone 20 mg tablet 20 mg PO BID Qty: 10 0RF dextromethorphan-guaifenesin [Mucinex DM] 60-1,200 mg tablet extended release 12 hr 1 tab PO BID Qty: 14 0RF No Action duloxetine [Cymbalta] 60 mg capsule,delayed release(DR/EC) 60 mg PO DAILY Qty: 90 3RF atorvastatin 40 mg tablet 40 mg PO DAILY Qty: 30 3RF metoprolol tartrate 25 mg tablet 25 mg PO DAILY Qty: 30 3RF ranolazine 500 mg tablet extended release 12 hr 1,000 mg PO DAILY 30 Days Qty: 60 3RF tamsulosin 0.4 mg capsule See Rx Instructions .ROUTE .COMPLEX Qty: 90 3RF Dose Instruction: TAKE 1 CAPSULE BY MOUTH ONCE DAILY Rx Instructions: TAKE 1 CAPSULE BY MOUTH ONCE DAILY aspirin 81 mg tablet,delayed release (DR/EC) 81 mg PO DAILY 90 Days Qty: 90 4RF fluticasone propion-salmeterol [Advair Diskus] 100-50 mcg/dose blister with device See Rx Instructions .ROUTE .COMPLEX Qty: 60 8RF Dose Instruction: INHALE 1 PUFF BY MOUTH TWO TIMES DAILY Rx Instructions: INHALE 1 PUFF BY MOUTH TWO TIMES DAILY lisinopril 5 mg tablet See Rx Instructions .ROUTE .COMPLEX Qty: 30 5RF Dose Instruction: TAKE 1 TABLET BY MOUTH ONCE DAILY Rx Instructions: TAKE 1 TABLET BY MOUTH ONCE DAILY nitroglycerin 0.4 mg tablet, sublingual See Rx Instructions .ROUTE .COMPLEX Qty: 25 3RF Dose Instruction: PLACE 1 TABLET UNDER THE TONGUE EVERY 5 MINUTES FOR 3 DOSES NEEDED FOR CHEST PAIN 10 Rx Instructions: PLACE 1 TABLET UNDER THE TONGUE EVERY 5 MINUTES FOR 3 DOSES NEEDED FOR CHEST PAIN 10 meloxicam 7.5 mg tablet See Rx Instructions .ROUTE .COMPLEX Qty: 30 4RF Dose Instruction: TAKE 1 TABLET BY MOUTH ONCE DAILY Rx Instructions: TAKE 1 TABLET BY MOUTH ONCE DAILY albuterol sulfate [Ventolin HFA] 90 mcg/actuation HFA aerosol inhaler See Rx Instructions .ROUTE .COMPLEX Qty: 18 2RF Dose Instruction: 1 PUFF INHALED EVERY 6 HOURS NEEDED NEEDED FOR ASTHMA FOR 30 DAYS Rx Instructions: 1 PUFF INHALED EVERY 6 HOURS NEEDED NEEDED FOR ASTHMA FOR 30 DAYS meloxicam 15 mg tablet 15 mg PO DAILY Qty: 30 0RF tramadol 50 mg tablet 100 mg PO QID Qty: 240 0RF Rx Instructions: 2 tabs 4x day. do not fill until 02/10/23 gabapentin [Neurontin] 800 mg tablet 800 mg PO QID Qty: 120 0RF methocarbamol 750 mg tablet 750 mg PO BID Referrals Follow up/Referrals: Jaylen Jasmine MD [Primary Care Provider] - See instructions Activity Restrictions/Add. Instructions Additional Instructions/Restrictions: Take meds as directed until gone Followup with Dr Jasmine next week Clinical Impressions Clinical Impression: Atypical pneumonia Instructions Patient Instructions: DI for Atypical Pneumonia Discharge ED Provider: Maggie Sharp [facility] [place] H[place] General Stated complaint: Cough Mode of Arrival: Ambulatory Source of Information: Patient Limitations: No Limitations Time Seen by Provider: 09/20/23 18:51 Description of Symptoms (Recalled from Triage Doc. by RN): Pt's symptoms are cough, body aches, and BANUELOS. HEENT Symptoms (Recalled from RN notes): Yes Resp Symptoms (Recalled from RN notes): No Skin Symptoms (Recalled from RN notes): No MS Symptoms (Recalled from RN notes): No Functional Status (Recalled from RN notes): n/a History of Present Illness Provider Complaint: Cough, congestion, body aches, chills X 4-5 days. H/O smoking. Very short of breath today. Cough is productive. Onset (ago): day(s) Location: chest Radiation: non-radiation Relieving factors: none Exacerbating factors: none Associated symptoms: cough and shortness of breath Treatments prior to arrival: none Related Data Home Medications Medication Instructions Recorded Confirmed methocarbamol 750 mg tablet 750 mg PO BID MUSCLES 08/10/22 09/06/23 Previous Rx's Medication Instructions Recorded duloxetine 60 mg capsule,delayed 60 mg PO DAILY depression/anxiety 11/07/22 release (Cymbalta) #90 caps aspirin 81 mg tablet,delayed 81 mg PO DAILY heart health 90 01/04/23 release days #90 tabs fluticasone 100 mcg-salmeterol 50 See Rx Instructions .Route 02/04/23 mcg/dose blistr powdr for .COMPLEX #60 ea inhalation (Advair Diskus) lisinopril 5 mg tablet See Rx Instructions .Route 04/26/23 .COMPLEX #30 tabs nitroglycerin 0.4 mg sublingual See Rx Instructions .Route 05/30/23 tablet .COMPLEX #25 ea atorvastatin 40 mg tablet 40 mg PO DAILY Cholesterol #30 tabs 07/02/23 metoprolol tartrate 25 mg tablet 25 mg PO DAILY blood pressure #30 07/02/23 tabs ranolazine 500 mg tablet,extended 1,000 mg (2 x 500 mg) PO DAILY . 07/02/23 release,12 hr 30 days #60 tabs tamsulosin 0.4 mg capsule See Rx Instructions .Route 07/02/23 .COMPLEX #90 caps meloxicam 7.5 mg tablet See Rx Instructions .Route 08/26/23 .COMPLEX #30 tabs albuterol sulfate 90 mcg/actuation See Rx Instructions .Route 09/03/23 aerosol inhaler (Ventolin HFA) .COMPLEX #18 grams gabapentin 800 mg tablet 800 mg PO QID Pain #120 tabs 09/06/23 (Neurontin) meloxicam 15 mg tablet 15 mg PO DAILY #30 tabs 09/06/23 tramadol 50 mg tablet 100 mg (2 x 50 mg) PO QID pain 09/06/23 #240 tabs azithromycin 250 mg tablet See Rx Instructions PO .COMPLEX #6 09/20/23 (Zithromax) tabs dextromethorphan-guaifenesin ER 60 1 tab PO BID #14 tabs 09/20/23 mg-1,200 mg tab,extend release,12hr (Mucinex DM) doxycycline monohydrate 100 mg 100 mg PO BID #20 tabs 09/20/23 tablet prednisone 20 mg tablet 20 mg PO BID #10 tabs 09/20/23 Allergies Allergy/AdvReac Type Severity Reaction Status Date / Time No Known Allergies Allergy Verified 09/20/23 17:53 Worker's Comp Is this a Worker's Comp case?: No [facility] Disclaimer: The information contained in this section may have been updated after the patient was seen, as this information can be updated by other users. Medical History Coronary artery disease Hyperlipidemia Hypertension Surgical History History of appendectomy Hx of CABG Family History Father Hyperlipidemia Hypertension Diabetes Mother Hyperlipidemia Hypertension Social History Smoking Status: Current every day smoker tobacco type: cigarettes packs per day: 1 second hand exposure: Yes alcohol intake: never substance use type: denies use current occupational status: other Travel in the last 8 weeks: None household members: spouse and children housing: house caffeine: Yes ROS Obtained: Yes All systems reviewed & no additional complaints except as documented Respiratory Respiratory: Reports shortness of breath, Reports chest congestion and Reports cough Physical Exam General General appearance: alert and in no apparent distress Head Head exam: atraumatic, normocephalic and normal inspection Eye Eye exam: Present normal appearance, PERRL and EOMI ENT ENT exam: Present normal exam, normal oropharynx, mucous membranes moist, TM's normal bilaterally and normal external ear exam Neck Neck exam: Present normal inspection, full ROM and trachea midline; Absent meningismus or lymphadenopathy Chest Chest inspection: Present normal inspection and symmetric chest wall rise; Absent tenderness Respiratory Respiratory exam: Present wheezes and other (initially hypoxic, tachypneic but improved after sitting); Absent respiratory distress Expanded Respiratory Exam Location: Upper: wheezes, rales, rhonchi and decreased breath sounds and Lower: wheezes, rales, rhonchi and decreased breath sounds Cardiovascular Cardiovascular exam: Present regular rate and normal rhythm; Absent JVD Abdominal Exam Abdominal exam: Present soft and normal bowel sounds; Absent distention, tenderness or guarding Extremities Exam Extremities exam: Present normal inspection, full ROM and normal capillary refill; Absent calf tenderness Back Exam Back exam: Present normal inspection; Absent tenderness Neurological Exam Neurological exam: Present alert and oriented X3 Psychiatric Psychiatric exam: Present normal affect and normal mood Skin Skin exam: Present warm, dry, intact and normal color Lymphatic Lymphatic Findings: no adenopathy Medical Decision Making Timothy Inquiry Pt receiving controlled substance: No Vital Signs: 09/20/23 17:45 Temperature 98.6 F Temperature Source Oral Pulse Rate [Right Radial] 79 Respiratory Rate 18 Blood Pressure [Right Arm] 166/65 H Blood Pressure Mean [Right Arm] 98 Blood Pressure Source [Right Arm] Automatic Cuff Blood Pressure Position [Right Arm] Sitting 02 Sat by Pulse Oximetry 96 Oxygen Delivery Method Room Air Lab Data Lab results reviewed: Yes I reviewed the patient's lab results. Lab Results 09/20/23 17:49: SARS-CoV-2 (PCR) Not detected, Influenza A Untype (PCR) Not detected, Influenza Type B (PCR) Not detected Orders (Tests/Meds): ED MEDICATIONS Generic Name Dose Route Start Last Admin Trade Name Freq PRN Reason Stop Dose Admin Ceftriaxone Sodium 1 gm 09/20/23 18:38 09/20/23 18:45 Ceftriaxone 1gm Vial IM 09/20/23 18:39 1 gm ONCE ONE Administration Lidocaine HCl 0 ml 09/20/23 18:38 09/20/23 18:45 Lidocaine 1% 5ml Pf Vial IM 09/20/23 18:39 2 ml ONCE ONE Administration Methylprednisolone Sodium Succinate 125 mg 09/20/23 18:38 09/20/23 18:45 Methylprednisolone Sod Succ 125mg Vial IM 09/20/23 18:39 125 mg ONCE ONE Administration ORDERS Category Date Time Status Chest XR 2 view (NOT portable) [XR chest 2V] Stat Exams 09/20/23 17:51 Completed Rapid PCR Covid and Flu A/B Stat Lab 09/20/23 17:49 Completed Radiology Data #1: Image(s): Chest Image Reviewed: Yes I reviewed the patient's radiology results and Yes I have reviewed radiologist's interpretation Preliminary Findings: Abnormal atelectasis vs aspiration vs atypical pneumonia
[2023-09-20 19:06] VITALS: BP 166/65; PULSE 79; RESP 18; TEMP 36.7; O2SAT 96
== END 2023-09-20 19:05 | disposition home or self-care (01) ==
PROVIDERS: Emergency Provider Physician Assistant; PCP Family Medicine
DX: J18.9 Pneumonia, unspecified organism (principal); R06.02 Shortness of breath; R05.8 Other specified cough; R09.81 Nasal congestion; M79.18 Myalgia, other site; F17.210 Nicotine dependence, cigarettes, uncomplicated
CPT/HCPCS: 71046; 87636; 96372; 99212; 99214; G0463; J0696; J2930

== ENCOUNTER 2023-10-04 09:02 | Day surgery (SDC) | payer MEDICAID, SELFPAY ==
[2023-10-04 09:12] VITALS: BP 138/63; PULSE 59; RESP 16; TEMP 36.7; O2SAT 99; BMI 23.7
[2023-10-04] MEDS: LIDOCAINE 1% 30ML PF VIAL 30 ML (09:34)
[2023-10-04] MEDS: FENTANYL 100MCG/2ML VIAL 100 MCG (09:34)
[2023-10-04] MEDS: CEFAZOLIN SODIUM 1 GM in 0.9 % SODIUM CHLORIDE 50 ML IV (09:34)
[2023-10-04 09:37] VITALS: BP 135/74; PULSE 61; RESP 18; O2SAT 97
[2023-10-04 09:39] VITALS: BP 135/74; PULSE 59; RESP 18; O2SAT 97
[2023-10-04 09:45] VITALS: BP 134/61; PULSE 66; RESP 16; O2SAT 97
[2023-10-04 10:05] VITALS: BP 129/56; PULSE 60; RESP 16; O2SAT 98
[2023-10-04 10:54] VITALS: BP 108/62; PULSE 57; RESP 16; O2SAT 99
--- NOTE | 2023-10-04 14:04 | EXP.PAIN.PRO ---
Procedure Date: 10/04/23 Time: 14:04 Anesthesiologist:: Varun Crowder MD Complications:: None Pre-procedure Diagnosis:: Degenerative disease of lumbar spine multilevel with lumbar radiculopathy symptoms Post-procedure Diagnosis:: Same Indications for Procedure:: This patient is a pleasant 58-year-old white male who we are treating for low back pain with lumbar radicular symptoms. He has failed all previous conservative treatments including injections, oral medications, physical therapy and he is not a candidate for surgery. He has had a successful psychological evaluation. He presents for intrathecal pump trial today. He has been off of his tramadol today. Procedure Details:: Pain pump trial Informed consent was obtained and the risk and benefits of the procedure was explained to the patient. The patient was taken to the procedure room and placed prone on the procedure table. Patient was prepped and draped in sterile fashion. C-arm fluoroscopy was used to view the lumbar spine. The skin and subcutaneous tissues were anesthetized using lidocaine. I placed a 18-gauge spinal needle into the L4-5 interspace and advanced until clear CSF was obtained. After this intrathecal catheter was inserted and advanced very easily to the L1 vertebral body. The needle was withdrawn. We were able to freely withdraw clear CSF through the catheter. We then injected intrathecal opioid single shot bolus of 25 mcg followed by saline and followed by the previous CSF that was withdrawn. The needle and catheter were then removed and a Band-Aid was placed. Patient tolerated the procedure well with no complications. We reevaluated the patient after 30 minutes to 1 hour. This patient had 90 to 100% relief in pain symptoms. Pain score is down to 1 out of 10. He was much more functional. He was standing better and walking better. By all indications this did seem to be a successful intrathecal pump trial. Patient was discharged home neurologic intact with good relief of pain symptoms. Plan and Disposition:: Will follow-up with this patient in 2 weeks to assess efficacy of this trial. If successful we will plan on permanent placement with intrathecal morphine 1 mg/mL to start at 100 mcg/day. Catheter tip will be at the T8 vertebral body.
== END 2023-10-04 10:56 | disposition home or self-care (01) ==
LOC: SC.PAINP 09:03
PROVIDERS: PCP Family Medicine; Visit Provider Anesthesiology
DX: M54.16 Radiculopathy, lumbar region (principal); M54.59 Other low back pain
CPT/HCPCS: 62323; J0690; J3010

== ENCOUNTER 2023-10-05 17:09 | Emergency (ER) | payer MEDICAID, SELFPAY ==
[2023-10-05 17:10] VITALS: BP 144/70; PULSE 64; RESP 20; TEMP 36.7; O2SAT 99; BMI 23.7
--- NOTE | 2023-10-05 17:35 | HMH.EDGENADL ---
Discharge Plan Disposition Patient Disposition: Home, Self-Care Chief Complaint: Headache Prescriptions Prescriptions: No Action duloxetine [Cymbalta] 60 mg capsule,delayed release(DR/EC) 60 mg PO DAILY Qty: 90 3RF atorvastatin 40 mg tablet 40 mg PO DAILY Qty: 30 3RF metoprolol tartrate 25 mg tablet 25 mg PO DAILY Qty: 30 3RF ranolazine 500 mg tablet extended release 12 hr 1,000 mg PO DAILY 30 Days Qty: 60 3RF tamsulosin 0.4 mg capsule See Rx Instructions .ROUTE .COMPLEX Qty: 90 3RF Dose Instruction: TAKE 1 CAPSULE BY MOUTH ONCE DAILY Rx Instructions: TAKE 1 CAPSULE BY MOUTH ONCE DAILY aspirin 81 mg tablet,delayed release (DR/EC) 81 mg PO DAILY 90 Days Qty: 90 4RF fluticasone propion-salmeterol [Advair Diskus] 100-50 mcg/dose blister with device See Rx Instructions .ROUTE .COMPLEX Qty: 60 8RF Dose Instruction: INHALE 1 PUFF BY MOUTH TWO TIMES DAILY Rx Instructions: INHALE 1 PUFF BY MOUTH TWO TIMES DAILY lisinopril 5 mg tablet See Rx Instructions .ROUTE .COMPLEX Qty: 30 5RF Dose Instruction: TAKE 1 TABLET BY MOUTH ONCE DAILY Rx Instructions: TAKE 1 TABLET BY MOUTH ONCE DAILY nitroglycerin 0.4 mg tablet, sublingual See Rx Instructions .ROUTE .COMPLEX Qty: 25 3RF Dose Instruction: PLACE 1 TABLET UNDER THE TONGUE EVERY 5 MINUTES FOR 3 DOSES NEEDED FOR CHEST PAIN 10 Rx Instructions: PLACE 1 TABLET UNDER THE TONGUE EVERY 5 MINUTES FOR 3 DOSES NEEDED FOR CHEST PAIN 10 meloxicam 7.5 mg tablet See Rx Instructions .ROUTE .COMPLEX Qty: 30 4RF Dose Instruction: TAKE 1 TABLET BY MOUTH ONCE DAILY Rx Instructions: TAKE 1 TABLET BY MOUTH ONCE DAILY albuterol sulfate [Ventolin HFA] 90 mcg/actuation HFA aerosol inhaler See Rx Instructions .ROUTE .COMPLEX Qty: 18 2RF Dose Instruction: 1 PUFF INHALED EVERY 6 HOURS NEEDED NEEDED FOR ASTHMA FOR 30 DAYS Rx Instructions: 1 PUFF INHALED EVERY 6 HOURS NEEDED NEEDED FOR ASTHMA FOR 30 DAYS meloxicam 15 mg tablet 15 mg PO DAILY Qty: 30 0RF tramadol 50 mg tablet 100 mg PO QID Qty: 240 0RF Rx Instructions: 2 tabs 4x day. do not fill until 02/10/23 gabapentin [Neurontin] 800 mg tablet 800 mg PO QID Qty: 120 0RF methocarbamol 750 mg tablet 750 mg PO BID azithromycin [Zithromax] 250 mg tablet See Rx Instructions .ROUTE .COMPLEX Qty: 6 0RF Rx Instructions: For 250 mg dose pack: take 500 mg today (day 1), then 250 mg for 4 days (days 2-5) doxycycline monohydrate 100 mg tablet 100 mg PO BID Qty: 20 0RF prednisone 20 mg tablet 20 mg PO BID Qty: 10 0RF dextromethorphan-guaifenesin [Mucinex DM] 60-1,200 mg tablet extended release 12 hr 1 tab PO BID Qty: 14 0RF Referrals Follow up/Referrals: Jaylen Jasmine MD [Primary Care Provider] - See instructions Activity Restrictions/Add. Instructions Additional Instructions/Restrictions: Follow-up with Dr. Crowder on Saturday, 10/[address] [place] [id number] in [place] for further evaluation. Sure to plenty hydrated and Excedrin Migraine with caffeine can help with pain. Call your family doctor to establish care for this visit to the emergency department and schedule follow-up within 48 hours to ensure improvement. If you have any worsening of your condition or any other concerning signs or symptoms, return to the emergency department or your primary care doctor for further evaluation. Clinical Impressions Clinical Impression: Post lumbar puncture headache Discharge ED Provider: Mitchel Bhatt General Adult HPI General Chief complaint: Headache Stated complaint: BANUELOS, body aches Time Seen by Provider: 10/05/23 17:16 Mode of Arrival: Wheelchair Source of Information: Patient Limitations: No Limitations Description of Symptoms (Recalled from ER Triage Doc. by RN): pt recieved an intrathecal injection yesterday per dr crowder and has had a severe headache ever since that comes up his back, neck and into his head. its the worse headache of his life, pt took gabapentin and tramadol at home and it has not helped heache. pt states headache is worse when he moves and causing nausea History of Present Illness HPI narrative: Please note that above description of symptoms, in this electronic medical record under categorization of recalled from ER triage doctor by RN are reflective of an initial nursing assessment, however, is not reflective of my full history and physical exam that was personally taken and clarified. Consequentially, this preceding description of symptoms, which may include the patient's categorized chief complaint in the EMR, do not reflect my personal clinical impression, and the ultimate description of history of present illness and patient stated complaints should be deferred to this section of the note. Unless stated otherwise or congruent with this section of the note, additional signs, symptoms, or incongruence should be interpreted as inaccurate with my clinical impression. Related Data Home Medications Medication Instructions Recorded Confirmed methocarbamol 750 mg tablet 750 mg PO BID MUSCLES 08/10/22 09/06/23 Previous Rx's Medication Instructions Recorded duloxetine 60 mg capsule,delayed 60 mg PO DAILY depression/anxiety 11/07/22 release (Cymbalta) #90 caps aspirin 81 mg tablet,delayed 81 mg PO DAILY heart health 90 01/04/23 release days #90 tabs fluticasone 100 mcg-salmeterol 50 See Rx Instructions .Route 02/04/23 mcg/dose blistr powdr for .COMPLEX #60 ea inhalation (Advair Diskus) lisinopril 5 mg tablet See Rx Instructions .Route 04/26/23 .COMPLEX #30 tabs nitroglycerin 0.4 mg sublingual See Rx Instructions .Route 05/30/23 tablet .COMPLEX #25 ea atorvastatin 40 mg tablet 40 mg PO DAILY Cholesterol #30 tabs 07/02/23 metoprolol tartrate 25 mg tablet 25 mg PO DAILY blood pressure #30 07/02/23 tabs ranolazine 500 mg tablet,extended 1,000 mg (2 x 500 mg) PO DAILY . 07/02/23 release,12 hr 30 days #60 tabs tamsulosin 0.4 mg capsule See Rx Instructions .Route 07/02/23 .COMPLEX #90 caps meloxicam 7.5 mg tablet See Rx Instructions .Route 08/26/23 .COMPLEX #30 tabs albuterol sulfate 90 mcg/actuation See Rx Instructions .Route 09/03/23 aerosol inhaler (Ventolin HFA) .COMPLEX #18 grams gabapentin 800 mg tablet 800 mg PO QID Pain #120 tabs 09/06/23 (Neurontin) meloxicam 15 mg tablet 15 mg PO DAILY #30 tabs 09/06/23 tramadol 50 mg tablet 100 mg (2 x 50 mg) PO QID pain 09/06/23 #240 tabs azithromycin 250 mg tablet See Rx Instructions PO .COMPLEX #6 09/20/23 (Zithromax) tabs dextromethorphan-guaifenesin ER 60 1 tab PO BID #14 tabs 09/20/23 mg-1,200 mg tab,extend release,12hr (Mucinex DM) doxycycline monohydrate 100 mg 100 mg PO BID #20 tabs 09/20/23 tablet prednisone 20 mg tablet 20 mg PO BID #10 tabs 09/20/23 Allergies Allergy/AdvReac Type Severity Reaction Status Date / Time No Known Allergies Allergy Verified 09/20/23 17:53 [facility] Disclaimer: The information contained in this section may have been updated after the patient was seen, as this information can be updated by other users. Medical History Coronary artery disease Hyperlipidemia Hypertension Surgical History History of appendectomy Hx of CABG Family History Father Hyperlipidemia Hypertension Diabetes Mother Hyperlipidemia Hypertension Social History Smoking Status: Current every day smoker tobacco type: cigarettes packs per day: 1 second hand exposure: Yes alcohol intake: never substance use type: denies use current occupational status: other Travel in the last 8 weeks: None household members: spouse and children housing: house caffeine: Yes ROS Obtained: Yes All systems reviewed & no additional complaints except as documented Physical Exam General General appearance: alert and in distress (Secondary to pain, eyes closed) Head Head exam: atraumatic and normocephalic Eye Eye exam: Present normal appearance, PERRL and EOMI ENT ENT exam: Present mucous membranes moist Neck Neck exam: Present normal inspection, full ROM and trachea midline Respiratory Respiratory exam: Absent respiratory distress, wheezes, stridor, accessory muscle use or prolonged expiratory phase Cardiovascular Cardiovascular exam: Present normal rhythm Abdominal Exam Abdominal exam: Present soft; Absent distention, tenderness, guarding, rebound or rigidity Extremities Exam Extremities exam: Absent edema Neurological Exam Neurological exam: Present alert, oriented X3, CN II-XII intact and normal gait; Absent motor sensory deficit Skin Skin exam: Present warm and dry; Absent diaphoresis or erythema Medical Decision Making Medical Records Medical records reviewed: Yes I reviewed the patient's medical records. Timothy Inquiry Pt receiving controlled substance: No Timothy was queried for this patient: No Vital Signs: 10/05/23 17:10 10/05/23 18:02 10/05/23 18:30 Temperature 98.0 F Temperature Source Oral Pulse Rate 54 L 73 Pulse Rate [Right Radial] 64 Respiratory Rate 20 Blood Pressure 140/74 146/75 H Blood Pressure [Right Arm] 144/70 H Blood Pressure Mean [Right Arm] 94 02 Sat by Pulse Oximetry 99 100 99 Oxygen Delivery Method Room Air 10/05/23 19:00 Temperature Temperature Source Pulse Rate 72 Pulse Rate [Right Radial] Respiratory Rate Blood Pressure 143/74 H Blood Pressure [Right Arm] Blood Pressure Mean [Right Arm] 02 Sat by Pulse Oximetry 98 Oxygen Delivery Method Lab Data Lab Results 10/05/23 17:45: WBC 10.6, RBC 4.25 L, Hgb 13.5 L, Hct 42.3, MCV 99.5 H, MCH 31.6 H, MCHC 31.8, RDW 14.0, Plt Count 312, MPV 7.9, Neut % (Auto) 72.8, Lymph % (Auto) 19.6, [place] % (Auto) 5.2, Eos % (Auto) 2.0, Baso % (Auto) 0.4, Neut # (Auto) 7.7, Lymph # (Auto) 2.1, [place] # (Auto) 0.6, Eos # (Auto) 0.2, Baso # (Auto) 0.0, PT 10.3, INR 0.91, APTT 25.9, Sodium 141, Potassium 3.8, Chloride 107, Carbon Dioxide 29, Anion Gap 8.8, BUN 18, Creatinine 0.90, Estimated Creat Clear 106, Estimated GFR 87, Est GFR ( Amer) 106, Glucose 113 H, Calcium 9.2, Total Bilirubin 0.3, AST 25, ALT 29, Alkaline Phosphatase 79, Total Protein 6.9, Albumin 3.7, Globulin 3.2, Albumin/Globulin Ratio 1.2 10/05/23 17:45 10/05/23 17:45 Orders (Tests/Meds): ED MEDICATIONS Generic Name Dose Route Start Last Admin Trade Name Freq PRN Reason Stop Dose Admin Dexamethasone 10 mg 10/05/23 19:08 Dexamethasone 4mg Tablet PO 10/05/23 19:09 ONCE ONE Discontinued Medications Generic Name Dose Route Start Last Admin Trade Name Ginny PRN Reason Stop Dose Admin Acetaminophen 1,000 mg 10/05/23 17:27 10/05/23 17:49 Acetaminophen 1,000mg/100ml Vial IV 10/05/23 17:28 1,000 mg ONCE ONE Administration Diphenhydramine HCl 25 mg 10/05/23 17:27 10/05/23 17:49 Diphenhydramine 50mg/Ml Vial IV 10/05/23 17:28 25 mg ONCE ONE Administration Haloperidol Lactate 2.5 mg 10/05/23 17:27 10/05/23 17:49 Haloperidol Lactate 5 Mg/Ml Vial IV 10/05/23 17:28 2.5 mg ONCE ONE Administration Sodium Chloride 1,000 mls @ 999 mls/hr 10/05/23 17:27 10/05/23 17:49 Sod Chlor 0.9% 1000ml Bag IV 10/05/23 18:27 999 mls/hr .Q1H1M ONE Administration Ketorolac Tromethamine 15 mg 10/05/23 17:27 10/05/23 17:49 Ketorolac 30mg/Ml Vial IV 10/05/23 17:28 15 mg ONCE ONE Administration ORDERS Category Date Time Status CT head/brain wo con Stat Cat Scan 10/05/23 17:37 Completed CBC w/Auto Diff [Complete Blood Count Auto Diff] Stat Lab 10/05/23 17:45 Completed CMP [Comprehensive Metabolic Panel] Stat Lab 10/05/23 17:45 Completed PT INR [Prothrombin Time INR] Stat Lab 10/05/23 17:45 Completed PTT [Activated Partial Thrombo Time] Stat Lab 10/05/23 17:45 Completed Medical Decision Narrative: 58-year-old male history of chronic back pain, headaches presenting with worst headache of life. Patient states that he received back injections yesterday, 10/03. This morning, woke up, had mild headache, it is progressed throughout the day to the point where it is severe, photophobic, worst headache of his life. He states that he gets headaches quite frequently, this 1 is different because of the intensity. It starts in his mid back, radiates up around his occiput into his frontal lobe. No nausea or vomiting, fevers or chills, weakness, or neurologic deficits. History was obtained via conversation with patient and chart review. On arrival, patient hemodynamically stable, alert, oriented x4, appropriate, GCS 15, moving all extremities spontaneously, pupils equal and reactive to light. Full physical exam performed and significant for uncomfortable appearing male no acute distress. Lying still in bed with eyes closed. Neurologically intact. Differential includes post LP headache, CSF leak, pneumocephalus, among others. Patient given headache cocktail with normal saline, acetaminophen, Haldol, Benadryl, Toradol. Workup independently interpreted. Nonactionable hematologic labs. Patient CT head without pneumocephaly or any intracranial abnormality. On reevaluation, patient feeling much better, but headache still present. I called anesthesia, anesthesia stated that they do not do blood patch procedures for pain clinic patients. Dr. Crowder was contacted and case was discussed at length. States that he is able to see patient on Saturday, 10/06. Recommended IV hydration, Excedrin Migraine and caffeine products to help with pain. Patient was also given 10 mg Decadron p.o. This was discussed with patient, he is agreeable to outpatient management. Because patient at baseline without signs or symptoms of clinical decompensation, deemed appropriate for discharge. Results were relayed to patient who voiced understanding and were agreeable to outpatient management and follow up. I discussed my clinical impression with patient and answered all questions. At this time, the evidence for any other entities in the differential is insufficient to warrant any further testing or ED observation. This was explained as well. Advisory was given that persistent or worsening symptoms require further evaluation. I confirmed the understanding of this discussion. Supervisor [employer] disclaimer Much of this encounter note is an electronic electronic communications technician spoken language to printed text. Electronic electronic communications technician of the spoken language may permit errors. Although I have reviewed the note, some errors may still exist. Critical Care Critical Care Time Critical Care Time: No
--- NOTE | 2023-10-05 17:37 | CT_ITS ---
PROCEDURE INFORMATION: Exam: CT Head Without Contrast Exam date and time: 10/05/2023 6:08 PM Age: 58 years old Clinical indication: Pain; Headache; Additional info: Post lp sevjamil BANUELOS TECHNIQUE: Imaging protocol: Computed tomography of the head without contrast. Radiation optimization: All CT scans at this facility use at least one of these dose optimization techniques: automated exposure control; mA and/or kV adjustment per patient size (includes targeted exams where dose is matched to clinical indication); or iterative reconstruction. COMPARISON: No relevant prior studies available. FINDINGS: Brain: Normal. No hemorrhage. Unremarkable white matter. No mass effect. Cerebral ventricles: No ventriculomegaly. Paranasal sinuses: Visualized sinuses are unremarkable. No fluid levels. Mastoid air cells: Visualized mastoid air cells are well aerated. Bones: Unremarkable. No acute fracture. Soft tissues: Unremarkable. IMPRESSION: No acute intracranial abnormality.
[2023-10-05] MEDS: KETOROLAC 30MG/ML VIAL 15 MG IV (17:49)
[2023-10-05] MEDS: diphenhydrAMINE 50MG/ML VIAL 25 MG IV (17:49)
[2023-10-05] MEDS: ACETAMINOPHEN 1,000MG/100ML VIAL 1000 MG IV (17:49)
[2023-10-05] MEDS: HALOPERIDOL LACTATE 5 MG/ML VIAL 2.5 MG IV (17:49)
[2023-10-05] MEDS: 0.9 % SODIUM CHLORIDE 1000ML 1,000 ML 999 ML IV (17:49)
[2023-10-05 17:51] LABS: Basophils % 0.4 % (0.1-2.0); Eosinophils # 0.2 K/mm3 (0.0-0.4); Hematocrit 42.3 % (42.0-52.0); Hemoglobin 13.5 g/dL (14.1-18.0); Lymphocytes # 2.1 K/mm3 (0.7-4.5); Lymphocytes % 19.6 % (10-50); Mean Corpuscular HGB Conc 31.8 g/dL (31.8-35.4); Mean Corpuscular Hemoglobin 31.6 pg (27.0-31.2); Mean Corpuscular Volume 99.5 fl (80-94); Mean Platelet Volume 7.9 fl (7.4-10.4); Monocytes # 0.6 K/mm3 (0.1-1.0); Monocytes % 5.2 % (1.7-9.3); Neutrophils # 7.7 K/mm3 (1.8-7.8); Neutrophils % 72.8 % (37.0-80.0); Platelet Count 312 K/mm3 (142-424); Red Blood Count 4.25 M/mm3 (4.60-6.20); White Blood Count 10.6 K/mm3 (4.8-10.8)
[2023-10-05 17:58] LABS: Chloride 107 mmol/L (98-107); Sodium 141 mmol/L (136-145)
[2023-10-05 17:59] LABS: Potassium 3.8 mmoL/L (3.5-5.1)
[2023-10-05 18:01] LABS: Alanine Aminotransferase 29 U/L (12-78); Albumin Level 3.7 g/dl (3.5-5.0); Albumin/Globulin Ratio 1.2 (1.1-1.8); Alkaline Phosphatase 79 U/L (38-126); Anion Gap 8.8 mEq/L (5-15); Aspartate Amino Transferase 25 U/L (17-59); Bilirubin,Total 0.3 mg/dl (0.2-1.3); Blood Urea Nitrogen 18 mg/dl (9-20); Carbon Dioxide 29 mmol/L (22.0-30.0); Creatinine Clearance Estimated 106 mL/min (50-200); Estimated Glomerular Filt Rate 87 ml/min (>60); GFR (African American) 106 ML/MIN (>60); Globulin 3.2 g/dL (1.3-3.2); Total Protein,Serum 6.9 g/dl (6.3-8.2)
[2023-10-05 18:02] VITALS: BP 140/74; PULSE 54; O2SAT 100
[2023-10-05 18:02] LABS: Calcium 9.2 mg/dl (8.4-10.2); Glucose 113 mg/dl (74-100)
[2023-10-05 18:04] LABS: Activated Partial Thrombo Time 25.9 seconds (22.8-30.6); INR 0.91 (0.9-1.1); Prothrombin Time 10.3 seconds (10.1-12.5)
--- NOTE | 2023-10-05 18:17 | PC.NURSE ---
DR SAHU PAGED
[2023-10-05 18:30] VITALS: BP 146/75; PULSE 73; O2SAT 99
[2023-10-05 19:00] VITALS: BP 143/74; PULSE 72; O2SAT 98
[2023-10-05 19:12] VITALS: BP 103/74; PULSE 82; RESP 14; TEMP 36.7; O2SAT 99
[2023-10-05] MEDS: DEXAMETHASONE 4MG/ML 1ML VIAL 10 MG IV (19:12)
--- NOTE | 2023-10-05 19:19 | PC.NURSE ---
Rounded on patient, at time of rounding patient was being discharged
== END 2023-10-05 19:22 | disposition home or self-care (01) ==
PROVIDERS: Emergency Provider Emergency Medicine; PCP Family Medicine
DX: G97.1 Other reaction to spinal and lumbar puncture (principal); R51.9 Headache, unspecified; R11.0 Nausea; F17.210 Nicotine dependence, cigarettes, uncomplicated; E78.5 Hyperlipidemia, unspecified; I11.9 Hypertensive heart disease without heart failure; I25.10 Atherosclerotic heart disease of native coronary artery without angina pectoris; Z95.1 Presence of aortocoronary bypass graft
CPT/HCPCS: 70450; 80053; 85025; 85610; 85730; 96361; 96374; 96375; 99285; J0131; J1100; J1630; J1885

== ENCOUNTER 2023-11-08 11:21 | Outpatient (CLI) | payer MEDICAID, SELFPAY ==
[2023-11-08 16:36] LABS: Basophils # 0.1 K/mm3 (0-0.2); Basophils % 0.6 % (0.1-2.0); Eosinophils # 0.5 K/mm3 (0.0-0.4); Eosinophils % 5.9 % (0.1-12.0); Hematocrit 43.1 % (42.0-52.0); Hemoglobin 14.2 g/dL (14.1-18.0); Lymphocytes # 2.4 K/mm3 (0.7-4.5); Lymphocytes % 30.3 % (10-50); Mean Corpuscular HGB Conc 32.9 g/dL (31.8-35.4); Mean Corpuscular Hemoglobin 33.8 pg (27.0-31.2); Mean Corpuscular Volume 102.6 fl (80-94); Mean Platelet Volume 9.8 fl (7.4-10.4); Monocytes # 0.6 K/mm3 (0.1-1.0); Monocytes % 7.2 % (1.7-9.3); Neutrophils # 4.4 K/mm3 (1.8-7.8); Neutrophils % 55.9 % (37.0-80.0); Platelet Count 279 K/mm3 (142-424); Red Cell Distribution Width 14.5 % (11.5-17.5); White Blood Count 7.9 K/mm3 (4.8-10.8)
[2023-11-08 17:21] LABS: Hemoglobin A1C 5.3 % (4.0-6.0)
[2023-11-08 17:24] LABS: Alanine Aminotransferase 19 U/L (12-78); Albumin Level 3.6 g/dl (3.5-5.0); Albumin/Globulin Ratio 1.2 (1.1-1.8); Alkaline Phosphatase 83 U/L (38-126); Anion Gap 8.3 mEq/L (5-15); Aspartate Amino Transferase 24 U/L (17-59); Bilirubin,Total 0.5 mg/dl (0.2-1.3); Blood Urea Nitrogen 12 mg/dl (9-20); Carbon Dioxide 25 mmol/L (22.0-30.0); Chloride 110 mmol/L (98-107); Chol/HDL Ratio 4.4 (1-3.5); Cholesterol 141 mg/dl (140-200); Estimated Glomerular Filt Rate 100 ml/min (>60); GFR (African American) 121 ML/MIN (>60); Globulin 2.9 g/dL (1.3-3.2); Glucose 97 mg/dl (74-100); HDL Cholesterol 32 mg/dl (40-60); Potassium 4.3 mmoL/L (3.5-5.1); Sodium 139 mmol/L (136-145); Total Protein,Serum 6.5 g/dl (6.3-8.2); Triglycerides 195 mg/dl (30-150); VLDL Cholesterol 39 mg/dL (0-40)
[2023-11-08 17:35] LABS: Direct LDL Cholesterol 70.71 mg/dL (100-129)
[2023-11-08 17:41] LABS: 25-OH Vitamin D, Total 39.8 ng/mL (30-100)
[2023-11-08 17:54] LABS: Prostate Specific Ag Screen 0.8 ng/ml (0.0-4.0); Thyroid Stimulating Hormone 2.48 uIU/mL (0.465-4.68)
== END 2023-11-08 23:59 | disposition home or self-care (01) ==
LOC: LAB.DROPOF 11-11 11:22
PROVIDERS: PCP Nurse Practitioner Family; Visit Provider Nurse Practitioner Family
DX: E78.5 Hyperlipidemia, unspecified (principal); I10 Essential (primary) hypertension; I25.10 Atherosclerotic heart disease of native coronary artery without angina pectoris; Z12.11 Encounter for screening for malignant neoplasm of colon
CPT/HCPCS: 80050; 80053; 80061; 82306; 83036; 84443; 85025; G0103

== ENCOUNTER 2024-02-28 10:20 | Outpatient (POV) | payer MEDICAID, SELFPAY ==
[2024-02-28 10:57] VITALS: BP 136/75; PULSE 80; RESP 16; O2SAT 97; BMI 23.7
--- NOTE | 2024-02-28 11:08 | A.OFFVIS_ITS ---
[facility] Disclaimer: The information contained in this section may have been updated after the patient was seen, as this information can be updated by other users. Medical History Coronary artery disease Hyperlipidemia Hypertension Surgical History History of appendectomy Hx of CABG Family History Father Hyperlipidemia Hypertension Diabetes Mother Hyperlipidemia Hypertension Social History Smoking Status: Current every day smoker tobacco type: cigarettes packs per day: 1 second hand exposure: Yes alcohol intake: never substance use type: denies use current occupational status: other household members: spouse and children housing: house caffeine: Yes PM Subjective & Objective Subjective Subjective:: Patient is a pleasant 58-year-old male who presents today for follow-up. Today he rates his pain a 7 out of 10. Patient denies any new trauma or injury. Patient has been going to the [facility] location for the last 4 to 5 months however he states that the drive is just more than he can handle. Patient would like to be seen back in our office for easier convenience. Patient at our last visit here had had a intrathecal pain pump trial however ended up having some leakage and resulted in a blood patch. Patient states then about 3 weeks later he ended up having another blood patch. Patient states that he has chronic pain from his ankle to his neck since. Patient is unsure whether or not what exactly caused the worsening pain however states that they have been trying to get updated MRI of his low back however initially this was declined due to not having recent physical therapy. Patient states that he then did go to physical therapy at least 2-3 times however this significantly worsened his pain and he was unable to complete it. Patient does state that he constantly has headaches male. Patient is currently being managed with Sarita 10 mg 4 times a day, gabapentin 800 mg 4 times a day and meloxicam 15 mg daily. Patient also states from his last visit here he is now on a joint supplement medication to help with the daily aches and pains. He states he did just get his other medications refilled from the [place] office yesterday and does not need refills. His Timothy has been reviewed and is appropriate. Review of Systems: General: No recent weight changes, no fever, no sleep disturbances Respiratory: No cough, no shortness of air, no recurring pulmonary infections Cardiovascular/peripheral vascular: No chest pain, no palpitations, no edema, no shortness of breath Gastrointestinal: No new onset incontinence, normal bowel movements reported Genitourinary: No new onset incontinence Musculoskeletal: Low back pain, neck pain Psychiatric: [Normal mood/affect] Neurological: [Denies weakness in extremities], [denies balance issues] Pain at rest (0-10 scale): 7 Objective Objective:: Physical Exam: General: Alert and oriented x3, no acute distress, pleasant and cooperative Lungs: Respirations even and unlabored, symmetrical chest expansion Eyes: PERRL Musculoskeletal: Flexion and extension of lumbar [spine] somewhat guarded secondary to pain, [antalgic gait noted] Neurological: Speech clear, no gross sensory deficit Has patient had previous pain injection?: No Conservative treatment options previously tried: Home exercise plan Length of treatment: Longer than 12 weeks Meds Home Medications and Allergies Home Medications ?Medication ?Instructions ?Recorded ?Confirmed ?Type methocarbamol 750 mg tablet 750 mg PO BID MUSCLES 08/10/22 02/28/24 History duloxetine 60 mg capsule,delayed 60 mg PO DAILY depression/anxiety 11/07/22 02/28/24 Rx release (Cymbalta) #90 caps nitroglycerin 0.4 mg sublingual See Rx Instructions .Route 05/30/23 02/28/24 Rx tablet .COMPLEX #25 ea metoprolol tartrate 25 mg tablet 25 mg PO DAILY blood pressure #30 07/02/23 02/28/24 Rx tabs tamsulosin 0.4 mg capsule See Rx Instructions .Route 07/02/23 02/28/24 Rx .COMPLEX #90 caps gabapentin 800 mg tablet See Rx Instructions .Route 11/07/23 02/28/24 Rx .COMPLEX #120 tabs lisinopril 2.5 mg tablet 2.5 mg PO DAILY #90 tabs 11/08/23 02/28/24 Rx tobramycin 0.3 %-dexamethasone See Rx Instructions .Route Q4H #5 11/08/23 02/28/24 Rx 0.05 % eye drops,suspension mL (Tobradex ST) ranolazine 500 mg tablet,extended See Rx Instructions .Route 11/28/23 02/28/24 Rx release,12 hr .COMPLEX #60 tabs atorvastatin 40 mg tablet 40 mg PO DAILY Cholesterol #30 tabs 12/16/23 02/28/24 Rx fluticasone 100 mcg-salmeterol 50 See Rx Instructions .Route 12/16/23 02/28/24 Rx mcg/dose blistr powdr for .COMPLEX #60 ea inhalation (Advair Diskus) aspirin 81 mg tablet,delayed 81 mg PO DAILY heart health 90 01/16/24 02/28/24 Rx release days #90 tabs meloxicam 15 mg tablet 15 mg PO DAILY #30 tabs 01/16/24 02/28/24 Rx albuterol sulfate 90 mcg/actuation See Rx Instructions .Route 02/27/24 02/28/24 Rx aerosol inhaler (Ventolin HFA) .COMPLEX #18 grams New Prescriptions to Start Prescriptions: Allergies Allergy/AdvReac Type Severity Reaction Status Date / Time No Known Allergies Allergy Verified 11/08/23 08:38 Assessment and Plan *Assessment and plan (1) Back pain: Status: Acute Category: Medical Code(s): M54.9 - Dorsalgia, unspecified (2) Post lumbar puncture headache: Status: Acute Category: Medical Code(s): G97.1 - Other reaction to spinal and lumbar puncture (3) Neck pain: Status: Acute Category: Medical Code(s): M54.2 - Cervicalgia Plan I did discuss with the patient that we will see about getting his last note from the [facility] location to see where we are at with resubmitting for the lumbar MRI. Patient was counseled that due to the chronic pain he is now continue to have without any updated imaging if we need to we will resubmit for the MRI without contrast. Patient has tried and failed conservative therapy including oral medications, heat and ice, topicals, at home stretching and exercise for longer than 12 weeks as well as recent physical therapy that caused worsening back symptoms. Patient's last MRI in our current system is dated 2018. Patient will be given a tentative follow-up appointment in 1 month for medication refill and follow-up. Patient agrees with this plan of care. Patient has been instructed to contact the clinic with any concerns before the next appointment. Dr. Crowder has reviewed this note and agrees with this plan of care. This note was dictated using voice recognition software and make contain errors or omissions. All injections are used with Lidocaine or Bupivacaine and Depo Medrol.
== END 2024-02-28 23:59 | disposition home or self-care (01) ==
LOC: SC.PAIN 10:21
PROVIDERS: PCP Family Medicine; Visit Provider Nurse Practitioner Family
DX: M54.9 Dorsalgia, unspecified (principal); G97.1 Other reaction to spinal and lumbar puncture; M54.2 Cervicalgia; F17.210 Nicotine dependence, cigarettes, uncomplicated; Z79.899 Other long term (current) drug therapy; Z95.1 Presence of aortocoronary bypass graft
CPT/HCPCS: 99212; G0463

== ENCOUNTER 2024-09-18 07:31 | Outpatient (CLI) | payer MEDICARE, SELFPAY ==
--- OUTSIDE RECORDS SUMMARY | 2024-09-18 07:39 | XMS_ITS | Data Portability ---
Author Organization [place] [facility], [facility] Address [address] [place] [address] Assessment Encounter Date Assessment Date Assessment LastModified by Organization Details LastModified Time 05/20/2024 05/20/2024 This is a pleasant 58-year-old male that presents today for prescription refill and follow-up. We are currently treating this patient for degenerative disc disease of the lumbar spine with radiculopathy. Today patient is rating his pain a 6 out of 10, this is improvement from his last visit with a pain level of 8 out of 10. Patient does complain of pain localized to the bilateral sacroiliac joints caudal to L5 without radicular symptoms. The symptoms are worse in the morning and are associated with radiation into the bilateral pelvis pelvis. He denies associated numbness and tingling. Prolonged sitting or standing from a seated position seems to aggravate symptoms, nothing seems to alleviate symptoms. During our last visit we did prescribe diclofenac to assist with his arthritic type pain, patient states he did not notice any difference with this medication. He is requesting to try a different NSAID today. We are currently prescribing him hydrocodone 10 mg 4 times daily, gabapentin 800 mg 4 times daily and methocarbamol 750 mg 3 times daily. Patient denies any side effects associated with these medications, he is requiring refills today. [facility] #[id number], drug screen from 01/22/2024 was reviewed and was appropriate. Conservative therapy: He has attempted at home stretching and exercise program without adequate relief in his symptoms. He reports exercising 2-3 times per week for the last 6 months without improvement. I do feel that sending patient to physical therapy would likely worsen his pain. Plan: I am scheduling patient for diagnostic #1 bilateral sacroiliac joint injection. He does complain of pain localized to the bilateral sacroiliac joint caudal to L5 without radicular symptoms. He does have positive Kayy's, compression, distraction and Pilo's exam bilaterally on exam today. He does continue with the symptoms despite conservative measures including at home stretching and exercise, heat/ice application, oral medications, and massage. He is not prescribed chronic anticoagulation. The risk and benefits of this procedure were discussed in length with patient today and he is wishing move forward. If this injection is helpful we may move forward with diagnostic injection #2 within therapeutic bilateral sacroiliac joint injections. I am sending in a prescription for Celebrex 100 mg once daily in lieu of his diclofenac, I will provide him with 1 month supply of this. I am also refilling patient's prescriptions for hydrocodone 10 mg 4 times daily, gabapentin 800 mg 4 times daily and methocarbamol 750 mg 3 times daily, patient denies I will provide him with a 1 month supply of these medications. We will see patient back in office for his injection, patient was instructed to contact us if he has any further questions or concerns. Dr. Crowder has reviewed this chart and agrees with this plan of care. This note was dictated with voice recognition software and may contain errors or omission Not available 05/20/2024 16:25:56 06/24/2024 06/24/2024 This patient had diagnostic bilateral SI joint injections under fluoroscopy. We will refill his medications today. Will refill his Celebrex 100 mg once a day, methocarbamol 750 mg 3 times a day, hydrocodone 10 mg 4 times a day and gabapentin 800 mg 4 times a day. Timothy and drug screen are all appropriate. Will follow-up with him in 1 month we will assess efficacy disease diagnostic bilateral SI joint injections. If successful he may be a candidate for therapeutic bilateral SI joint injections in the future. abux Not available 06/24/2024 14:58:14 07/22/2024 07/22/2024 This is a pleasant 59-year-old male that presents today for prescription refill and injection follow-up. Patient underwent diagnostic bilateral sacroiliac joint injection on 06/24/2024, patient states he had around 80 to 90% relief in symptoms that lasted for 2 hours. He states his pain quickly returned. Today he is rating his pain a 6 out of 10, this is no change from his last visit. He continues with lumbar back pain with radiation down the left lower extremity to the mid calf. He states the symptoms are constant and severe, he feels his current medication regimen will only control his pain for a short period of time. He is hoping to discuss therapeutic options to better address his pain as it is becoming debilitating to him and making it difficult for him to complete activities of daily living. We are currently managing patient with hydrocodone 10 mg 4 times daily, Celebrex 100 mg once daily, gabapentin 800 mg 4 times daily and methocarbamol 750 mg 3 times daily. Patient denies any side effects associated with these medications, he is requiring refills. [facility] #[id number], drug screen from 04/23/2024 was reviewed and is appropriate. Patient did undergo updated drug screen in office today. A screen and reflex to confirmation was ordered as random testing at random intervals based on medical necessity guidance criteria. Urine drug screen is needed to verify patient's compliance with the pain contract, this will be ordered due to treatments of chronic pain with a potentially abused medication. Conservative Therapy: Patient has completed 3 months of physical therapy, this greatly aggravated his symptoms. He has continued with a physician guided home stretching and exercise program 2-3 times per week at 20 to 30-minute intervals over the last 6 months without significant relief in symptoms. At this time I do feel sending patient to physical therapy would likely worsen his pain. Plan: I am scheduling patient for.a MRI and CT of the lumbar spine to further investigate the pathology of his presenting symptoms. Patient does have significant lumbar radiculopathy with past medical history of degenerative disc disease in the lumbar spine. He does continue with significant debilitating symptoms that make it difficult for him to complete activities of daily living despite a physician guided home stretching and exercise program. Patient does follow this program 2-3 times per week at 20 to 30-minute intervals over the last 6 months without long-term relief in symptoms. His pain has not improved following this intervention. He has also attempted and failed conservative measures such as oral medications, heat/ice application and massage He has completed physical therapy for 3 months, this greatly worsened his symptoms. Further investigation to the pathology of his presenting symptoms is necessary to determine an effective treatment plan for this patient and for the etiology of his pain. Pending MRI findings patient may be a candidate for injections or neurosurgical evaluation. I am also refilling patient's prescriptions for hydrocodone 10 mg 4 times daily, Celebrex 100 mg once daily, gabapentin 800 mg 4 times daily and methocarbamol 750 mg 3 times daily. I will provide the patient with a 1 month supply of these medications. We will see patient back in office in 1 month for prescription refill and follow-up. At this time we will review advanced imaging as available. Patient was instructed to contact us if he has any further questions or concerns. Dr. Crowder has reviewed this chart and agrees with this plan of care. This note was dictated with voice recognition software and may contain errors or omission this visit reflects the ongoing, longitudinal relationship and complexity of managing the patient's chronic pain condition, including continuous coordination of care, treatment planning, and monitoring over time as part of a comprehensive pain management strategy. Not available 07/22/2024 12:38:35 08/19/2024 08/19/2024 This patient is still scheduling his MRI. He does have approval now. He is going to schedule this at [place]. Will follow-up on those results. In the meantime we will continue his medications he is on hydrocodone 10 mg 4 times a day, Celebrex 100 mg once a day, gabapentin 800 mg 4 times a day and methocarbamol 750 mg 3 times a day. Timothy and drug screen are all appropriate. Will follow-up with him in 1 month. Will follow-up on his MRI findings and formulate a treatment plan at that time. abux Not available 08/19/2024 12:49:27 Plan of Treatment Reminders Order Date Submit Date Provider Last Modified By Organization Details Last Modified Time Details Appointments Follow Up 2024 11:40A M PEYTON LEAL NP Not available Not available Not available Lab None recorded. Referral None recorded. Procedures sacroilia c joint injection (PROC) 2024 025 [email or web address] Not available 06/01/2024 14:37:45 Surgeries None recorded. Imaging MRI, lumbar spine, w/o contrast 2024 025 [email or web address] [facility] ([facility]), [address], [place], [address], 07/24/2024 12:43:45 CT, lumbar spine, w/o contrast 2024 025 [email or web address] [facility] ([facility]), [address], [place], [address], 08/18/2024 12:11:29 Medication Orders celecoxib 100 mg capsule 2024 025 [place] [facility], [address] [place], [address], 08/21/2024 11:50:04 gabapenti n 800 mg tablet 2024 025 [place] [facility], [address] [place], [address], 08/21/2024 11:50:05 hydrocodo ne 10 mg-acetam inophen 325 mg tablet 2024 025 [place] [facility], [address] [place], [address], 08/21/2024 11:50:04 methocarb luc 750 mg tablet 2024 025 [place] [facility], [address] [place], [address], 08/21/2024 11:50:03 celecoxib 100 mg capsule 2024 025 [place] [facility], [address] [place], [address], 07/24/2024 17:04:40 gabapenti n 800 mg tablet 2024 025 [place] [facility], [address] [place], [address], 07/24/2024 17:04:38 hydrocodo ne 10 mg-acetam inophen 325 mg tablet 2024 025 [place] [facility], [address] [place], [address], 07/24/2024 17:04:39 methocarb luc 750 mg tablet 2024 025 [place] [facility], [address] [place], [address], 07/24/2024 17:04:37 celecoxib 100 mg capsule 2024 025 [place] [facility], [address] [place], [address], 06/24/2024 15:02:56 gabapenti n 800 mg tablet 2024 025 [place] [facility], [address] [place], [address], 06/29/2024 14:02:21 hydrocodo ne 10 mg-acetam inophen 325 mg tablet 2024 025 [place] [facility], [address] [place], [address], 06/29/2024 14:02:20 methocarb luc 750 mg tablet 2024 025 [place] [facility], [address] [place], [address], 06/29/2024 14:02:22 gabapenti n 800 mg tablet 2024 025 [place] [facility], [address] [place], [address], 05/22/2024 16:55:41 hydrocodo ne 10 mg-acetam inophen 325 mg tablet 2024 025 [place] [facility], [address] [place], [address], 05/22/2024 16:55:38 methocarb luc 750 mg tablet 2024 025 [place] [facility], [address] [place], [address], 05/22/2024 16:55:39 Celebrex 100 mg capsule 2024 [facility], [address] [place], [address], 05/22/2024 16:55:40 Patient TargetsNo targets recorded. Patient InstructionsNo instructions recorded. Reason for Referral None Reported. Results Created Date Observation Date Name Description Value Unit Range Abnormal Flag Note LastModifiedBy Organization Detail LastModifiedTime Result Notes None recorded. Problems Name Problem SNOMED Code Status Onset Date Resolution Date Notes Provider Name and Address Organization Details Recorded Time Post dural puncture headache 722782032 Active 2023 Varun Crowder MD [address] [facility],[address], [address], [place] [facility] 14:46:45 Degeneration of lumbar intervertebral disc 67363898 Active 2023 Varun Crowder MD [address] [facility],[address], [address], [place] [facility] 14:46:46 Lumbar spondylosis 616072746 Active 2023 Varun Crowder MD [address] [facility],[address], [address], [place] [facility] 14:46:47 Spinal stenosis of lumbar region 70488948 Active 2023 Varun Crowder MD [address] [facility],[address], [address], [place] [facility] 14:46:48 Lumbar radiculopathy 203349683 Active 2023 Varun Crowder MD [address] [facility],[address], [address], [place] [facility] 14:46:50 Long-term drug therapy Active 2024 GOLDEN ALVARADO [address] [facility],HÉCTOR [address] [place] [address], [address], [place] [facility] 16:16:39 Continuous opioid dependence 708219354 Active 2024 GOLDEN ALVARADO [address] [facility], [place], [address], [place] [facility] 16:16:40 Problem Notes None recorded. Procedures Surgical History Date Name Laterality Status Provider Name and Address Organization Details Recorded Time 06/25/19 25 Diagnostic SI Joint Injection Under Fluoroscopy completed Varun Crowder MD [address] [facility],[address], [address], [place] [facility] 06/24/2024 14:57:08 12/26/19 24 Lumbar MISSY: Interlaminar completed Varun Crowder MD [address] [facility],[address], [address], [place] [facility] 12/26/2023 16:48:56 10/07/19 24 Lumbar MISSY: Interlaminar completed Varun Crowder MD [address] [facility],[address], [address], [place] [facility] 10/07/2023 14:35:51 coronary artery bypass graft completed [facility]ANCE [place] [facility] 10/07/2023 13:12:57 Appendectomy completed [place]ANCE [place] [facility] 10/07/2023 13:13:06 Imaging Results None recorded. Procedure Notes None recorded. Medical Equipment None Reported. Allergies No known drug allergies Medications Name Sig Start Date Stop Date Status Note LastModified by Organization Details LastModified Time TOLECTIN DS 1 tablet twice a day 2023 active Not Available Not Available Not Avai lable atorvastatin 40 mg tablet TAKE 1 TABLET BY MOUTH AT BEDTIME active Not Available Not Available No t Available tolmetin 600 mg tablet Take 1 tablet by mouth 3 times a day for 30 days. active Not Available Not Available No t Available gabapentin 600 mg tablet TAKE 1 TABLET BY MOUTH FOUR TIMES DAILY 10/06 completed Not Available Not Available Not Available clindamycin HCl 300 mg capsule active Not Available Not Available Not Available azithromycin 250 mg tablet TAKE 2 TABLETS BY MOUTH ON DAY 1, AND THEN TAKE 1 TABLET BY MOUTH ONCE A DAY ON DAY 2 THROUGH DAY 5 10/06 completed Not Available Not Available Not Available doxepin 25 mg capsule 10/06 completed Not Available Not Available Not Available hydrocodone 5 mg-acetamino phen 325 mg tablet Take 1 tablet 3 times a day by oral route. 12/04 completed Not Available Not Available Not Available meloxicam 15 mg tablet TAKE 1 TABLET BY MOUTH EVERY DAY active Not Available Not Available No t Available prednisone 20 mg tablet Take 1 tablet every day by oral route. active Not Available Not Available No t Available sertraline 100 mg tablet TAKE 1 TABLET BY MOUTH ONCE DAILY 10/06 completed Not Available Not Available Not Available hydrocodone 10 mg-acetamino phen 325 mg tablet Take 1 tablet 4 times a day by oral route for 30 days. 2024 active Not Available Not Available Not Avai lable aspirin 81 mg tablet,delay ed release active Not Available Not Available N ot Available doxycycline monohydrate 100 mg tablet 10/06 completed Not Available Not Available Not Available tramadol 50 mg tablet TAKE 2 TABLETS BY MOUTH FOUR TIMES A DAY FOR PAIN 10/06 completed Not Available Not Available Not Available baclofen 20 mg tablet TAKE 1 TABLET BY MOUTH THREE TIMES A DAY WITH FOOD OR MILK active Not Available Not Available No t Available meloxicam 7.5 mg tablet TAKE 1 TABLET BY MOUTH EVERY DAY ONCE A DAY 10/06 completed Not Available Not Available Not Available methocarbamo l 750 mg tablet Take 1 tablet 3 times a day by oral route for 30 days. 2024 active Not Available Not Available Not Avai lable tamsulosin 0.4 mg capsule active Not Available Not Available Not Available gabapentin 800 mg tablet TAKE 1 TABLET BY MOUTH FOUR TIMES A DAY FOR PAIN 2024 active Not Available Not Available Not Avai lable hydrocodone 7.5 mg-acetamino phen 325 mg tablet Take 1 tablet 3 times a day by oral route for 30 days. 12/04 completed Not Available Not Available Not Available nicotine 21 mg/24 hr daily transdermal patch active Not Available Not Available Not Available nitroglyceri n 0.4 mg sublingual tablet active Not Available Not Available Not Available gabapentin 300 mg capsule TAKE 1 CAPSULE BY MOUTH THREE TIMES A DAY 10/06 completed Not Available Not Available Not Available diclofenac sodium 75 mg tablet,delay ed release TAKE 1 TABLET TWICE A DAY BY ORAL ROUTE FOR 30 DAYS. 2024 active Not Available Not Available Not Avai lable lisinopril 5 mg tablet TAKE 1 TABLET BY MOUTH EVERY DAY active Not Available Not Available No t Available fluticasone 100 mcg-salmeter ol 50 mcg/dose blistr powdr for inhalation USE 1 PUFF BY MOUTH TWO TIMES A DAY active Not Available Not Available No t Available albuterol sulfate HFA 90 mcg/actuatio n aerosol inhaler 2 PUFFS NEEDED EVERY 4 HRS NEEDED active Not Available Not Available No t Available celecoxib 100 mg capsule TAKE 1 CAPSULE EVERY DAY BY ORAL ROUTE FOR 30 DAYS. 2024 active Not Available Not Available Not Avai lable tolmetin 400 mg capsule Take one capsule BY MOUTH TWICE DAILY 2024 active Not Available Not Available Not Avai lable lisinopril 2.5 mg tablet active Not Available Not Available Not Available tobramycin 0.3 %-dexamethas one 0.1 % eye drops,suspen brenna active Not Available Not Available Not Available metoprolol tartrate 25 mg tablet TAKE 1 TABLET BY MOUTH TWO TIMES A DAY WITH FOOD active Not Available Not Available No t Available duloxetine 30 mg capsule,marcin yed release 10/06 completed Not Available Not Available Not Available duloxetine 60 mg capsule,marcin yed release 10/06 completed Not Available Not Available Not Available ranolazine ER 500 mg tablet,exten ded release,12 hr TAKE 1 TABLET BY MOUTH TWICE DAILY active Not Available Not Available No t Available Pro Comfort Spacer-Adult Mask active Not Available Not Available Not Available Vitals Date Recorded Body height Provider Name an d Address Organization Details Last Updated DateTime 05/20/2024 185.42 cm Sonia Elizabeth [place] [facility] 05/20/2024 14:01:04 Date Recorded Body height Heart rate Respiratory rate Body mass index (BMI) Body weight Oxygen saturation Oxygen saturation in Arterial blood by Pulse oximetry Systolic blood pressure Diastolic blood pressure Provider Name and Address Organization Details Last Updated DateTime 5 185.42 cm 73 /min 18 /min 23.7 kg/m2 34549.6 3 g 98 % 98 % 143 mm[Hg] 71 mm[Hg] Jeniffer Jay [place] [facility] 5 11:11:17 Date Recorded Body height Heart rate Respiratory rate Body mass index (BMI) Body weight Heart rate Oxygen saturation Oxygen saturation in Arterial blood by Pulse oximetry Systolic blood pressure Diastolic blood pressure Provider Name and Address Organization Details Last Updated DateTime 5 185.42 cm 73 /min 18 /min 23.7 kg/m2 58865.6 3 g 73 /min 98 % 98 % 143 mm[Hg] 71 mm[Hg] [place]ANCE BACK [place] [facility] 5 11:14:38 Date Recorded Body height Body mass index (BMI) Body weight Heart rate Oxygen saturation Oxygen saturation in Arterial blood by Pulse oximetry Systolic blood pressure Diastolic blood pressure Provider Name and Address Organization Details Last Updated DateTime 5 185.42 cm 23.7 kg/m2 71969.6 3 g 74 /min 98 % 98 % 142 mm[Hg] 72 mm[Hg] [place] [facility] 5 11:32:30 Date Recorded Body height Heart rate Respiratory rate Body mass index (BMI) Body weight Oxygen saturation Oxygen saturation in Arterial blood by Pulse oximetry Systolic blood pressure Diastolic blood pressure Provider Name and Address Organization Details Last Updated DateTime 5 185.42 cm 74 /min 18 /min 23.7 kg/m2 43747.6 3 g 98 % 98 % 142 mm[Hg] 72 mm[Hg] Jeniffer Pierre [place] [facility] 5 10:38:26 Social History Question Answer Notes LastModified by [employer] Details LastModified Time Tobacco Smoking Status Current Every Day Smoker [place] null, [place] [facility] 10/07/2023 13:14:29 In The 14 Days Before Symptom Onset, Have You Had Close Contact With A Laboratory-confirm ed COVID-19 While That Case Was Ill? No [email or web address] Information n ot available 10/07/2023 In The 14 Days Before Symptom Onset, Have You Had Close Contact With A Person Who Is Under Investigation For COVID-19 While That Person Was Ill? No [email or web address] Information not available 10/07/2023 Have You Been To An Area Known To Be High Risk For COVID-19? No [email or web address] Information not available 10/07/2023 Sex: Unknown Functional Status Question Answer Note LastModified by Organizat ion Details LastModified Time Do you use any illicit or recreational drugs? No [email or web address] Information not available 10/07/2023 Do you or have you ever used any other forms of tobacco or nicotine? No [email or web address] Information not available 10/07/2023 What is your level of alcohol consumption? None [email or web address] Information not available 10/07/2023 Mental Status None recorded. Family History Nothing Reported. Medical History Condition Response Coronary Artery Disease Y Gout N Hernia N Head Trauma/Injury N Thyroid Problems N Depression N COPD N Anemia N Heart Attack (CO) N Ulcers N Diabetes N Anxiety Disorder N Bleeding Disorder N Arthritis N Tuberculosis N AIDS/HIV N Acid Reflux (GERD) N Cancer N Stroke N Asthma N Substance Abuse N Back Injury N High Cholesterol N Hepatitis N Liver Disease N Heart Disease N Headaches Y Fibromyalgia N Hypertension Y Osteoporosis N Kidney Disease N Past Encounters Encounter ID Performer Location Encounter Start Date Encounter Closed Date Diagnosis/Indication Diagnosis SNOMED-CT Code Diagnosis ICD10 Code Diagnosis Note [id number] Varun Crowder MD [address] [place] [address] [place] [address] 3 10/07/2023 12:17:35 10/07/2023 14:39:13 Post dural puncture headache 528234791 G97.1 Degenerati on of lumbar intervertebral disc 11193646 M51.36 Lumbar radiculopathy 128 763425 M54.16 Lumbar spondylosis 93050 0009 M47.896 Spinal héctor nosis of lumbar region 02439644 M48.062 [id number] Varun Crowder MD [address] [place] [address] [place] [address] 3 10/09/2023 13:06:13 10/09/2023 13:45:10 Lumbar radiculopathy 716780915 M54.16 Degenerati on of lumbar intervertebral disc 10706562 M51.36 Lumbar spondylosis 22719 0009 M47.896 Post dural puncture headache 812860199 G97.1 Spinal héctor nosis of lumbar region 88090988 M48.062 [id number] Varun Crowder MD [address] [place] [address] 3 11/06/2023 12:49:47 11/06/2023 13:28:17 Lumbar radiculopathy 976352129 M54.16 Spinal héctor nosis of lumbar region 94398545 M48.062 Post dural puncture headache 780221491 G97.1 Lumbar spondylosis 58381 0009 M47.896 Degenerati on of lumbar intervertebral disc 70992490 M51.36 Inflammati on of sacroiliac joint 85258443 M46.1 [id number] Varun Crowder MD [address] [place] [address] 12/05/2023 13:04:58 12/05/2023 13:45:18 Lumbar radiculopathy 831894273 M54.16 Degenerati on of lumbar intervertebral disc 85963961 M51.36 Lumbar spondylosis 53223 0009 M47.896 Post dural puncture headache 286427910 G97.1 Spinal héctor nosis of lumbar region 79378880 M48.062 Cerebrospi nal fluid leak 129372635 G96.00 [id number] Varun Crowder MD [address] [place] [address] 12/26/2023 14:16:06 12/26/2023 15:57:19 Spinal stenosis of lumbar region 88016090 M48.062 Lumbar radiculopathy 128 048199 M54.16 Post dural puncture headache 048655771 G97.1 Lumbar spondylosis 02916 0009 M47.896 Degenerati on of lumbar intervertebral disc 59995744 M51.36 [id number] Varun Crowder MD [address] [place] [address] 01/22/2024 14:02:02 01/22/2024 15:20:37 Lumbar radiculopathy 844262974 M54.16 Post dural puncture headache 882478708 G97.1 Spinal héctor nosis of lumbar region 37841981 M48.062 Lumbar spondylosis 50977 0009 M47.896 Degenerati on of lumbar intervertebral disc 54227073 M51.369 [id number] GOLDEN ALVARADO [address] [place] [address] 04/23/2024 12:18:23 04/23/2024 12:47:15 Lumbar radiculopathy 556423862 M54.16 Long-term drug therapy 869758606 Z79.891 Continuous opioid dependence 290812815 F11.20 Degenerati on of lumbar intervertebral disc 01040789 M51.369 Lumbar spondylosis 01549 0009 M47.896 Spinal héctor nosis of lumbar region 37554571 M48.062 [id number] GOLDEN ALVARADO [address] [place] [address] 05/20/2024 13:13:30 05/20/2024 14:33:12 Lumbar radiculopathy 794580604 M54.16 Continuous opioid dependence 307029271 F11.20 Degenerati on of lumbar intervertebral disc 81677525 M51.369 Long-term drug therapy 300013567 Z79.891 Lumbar spondylosis 38559 0009 M47.896 Post dural puncture headache 713135140 G97.1 Spinal héctor nosis of lumbar region 80133645 M48.062 Inflammati on of sacroiliac joint 61983355 M46.1 [id number] Varun Crowder MD [address] [place] [address] 06/24/2024 10:56:17 06/24/2024 12:29:36 Continuous opioid dependence 451802658 F11.20 Degenerati on of lumbar intervertebral disc 99609762 M51.369 Long-term drug therapy 524072289 Z79.891 Lumbar radiculopathy 128 110814 M54.16 Lumbar spondylosis 94754 0009 M47.896 Post dural puncture headache 381158286 G97.1 Spinal héctor nosis of lumbar region 53577715 M48.062 [id number] GOLDEN ALVARADO [address] [place] [address] 07/22/2024 11:02:55 07/22/2024 12:44:39 Lumbar radiculopathy 809663628 M54.16 Spinal héctor nosis of lumbar region 01796136 M48.062 Continuous opioid dependence 467471082 F11.20 Degenerati on of lumbar intervertebral disc 28361970 M51.369 Long-term current use of opiate analgesic drug 5581519182 31415 Z79.891 Long-term drug therapy 425784880 Z79.891 [id number] Varun Crowder MD [address] [place] [address] 08/19/2024 11:24:52 08/19/2024 12:20:12 Lumbar radiculopathy 052696046 M54.16 Spinal héctor nosis of lumbar region 81865124 M48.062 Continuous opioid dependence 050415276 F11.20 Post dural puncture headache 308601890 G97.1 Lumbar spondylosis 52665 0009 M47.896 Degenerati on of lumbar intervertebral disc 16844274 M51.369 [id number] Varun Crowder MD [address] [place] [address] 09/16/2024 10:35:55 09/16/2024 11:08:13 Lumbar radiculopathy 712876612 M54.16 Spinal héctor nosis of lumbar region 63875679 M48.062 Continuous opioid dependence 989709542 F11.20 Post dural puncture headache 777306189 G97.1 Lumbar spondylosis 04580 0009 M47.896 Degenerati on of lumbar intervertebral disc 68601676 M51.369 Health Concerns Section Related Observation LastModified by Organization Detai ls LastModified Time None Recorded Concern Status LastModified by Organization Details LastModified Time None Recorded Advance Directives Directive None Recorded Payers Insurance Date Sequence Insurance Name Policy Number Policy B[place]aux Covered Member ID [place] Member ID Guarantor Name 04/15/2024 1 [employer] [place] (MEDICA[place]) Brad Hurley [id number] Brad Hurley 09/16/2024 2 [employer] [place] ([place]) Brad Hurley [id number] Brad Hurley 04/23/2024 1 [employer] [place] ([place] Brad Hurley [id number] Brad Hurley 09/16/2024 1 [place] Brad Hurley [id number] Brad Hurley Notes Date Note Type Note Provider Name and Address Organization Details Recorded Time 05/20/2024 text/html Pain Management HeadacheReported bypatient.Location:at the back of the head (occipital); in changing locations Severity:pain level 8 7/10 Quality:varying intensity Varun Crowder MD [address], [address] [place] [address], [place] [facility] 05/20/2024 20:09:23 06/24/2024 text/html Pain Management HeadacheReported bypatient.Location:at the back of the head (occipital); in changing locations Severity:pain level 10/10 Quality:varying intensity Patient presents for an injection of INSERT TEXT HERE. Varun Crowder MD [address], [address], [place] [facility] 06/24/2024 15:02:41 07/22/2024 text/html Pain Management HeadacheReported bypatient.Location:at the back of the head (occipital); in changing locations Severity:pain level 6/10 Quality:varying intensity GOLDEN ALVARADO [address], [address], [place] [facility] 07/23/2024 08:43:03 08/19/2024 text/html Back PainReporte d bypatient.Location:lum bar;pain radiating to the legs Quality:sharp;tingling ;dull;stiffness;aching ;constant Severity:pain level 7/10;moderate (5-7) Duration:chronic Onset/Timing:recurrent episode Context:trauma Alleviating Factors:relieved by changing position Aggravating Factors:movement/posit ioning; twisting; flexing back; extending back; lifting; housework; walking; standing; sitting Associated Symptoms:no fever; no incontinence; no shortness of breath; no unintentional weight loss; no chills; no night sweats; no gait instability; no bowel/bladder symptoms; no recent increase in stress;weak limbs;numbness of the legs/feet;tingling Prior Imaging:[facility] HeadacheReported bypatient.Location:at the back of the head (occipital); in changing locations Severity:pain level 7/10 Quality:varying intensity Varun Crowder MD [address], [address], [place] [facility] 08/19/2024 12:51:06
--- OUTSIDE RECORDS SUMMARY | 2024-09-18 07:39 | XMS_ITS | Encounter Summary ---
Author Organization [employer] Address [address] [place] [address] Care Team Providers Care Fund Development Manager Name Role Phone Unavailable Primary Care Provider Unavailabl e Encounter Details Date Type Department Care Team (Late st Contact Info) Description 08/31/2020 Transcribed Document [facility] [place] [facility] [place] [address] ProviderZulma MD [address] [place] [address] Social History Tobacco Use Types Packs/Day Years Used Date Smoking Tobacco: Never Assessed Sex and Gender Information Value Date Recorded Sex Assigned at Male 10/03/2021 5:40 PM CDT Legal Sex Male 5:40 PM CDT Gender Identity Male 10/03/2021 5:40 PM CDT Sexual Orientation Not on file documented as of this encounter Miscellaneous Notes * Cerner Conversion Note - Zulma ProviderMD - 08/31/2020 12:59 PM CDT Nursing Discharge Summary Entered On: 08/31/2020 13:00 EDT Performed On: 08/31/2020 12:59 EDT by PATRICIA GODOY Rn-Clinical Coordinator I Discharge Documentation Discharge Date/Time : 08/31/2020 14:10 EDT PATRICIA GODOY Rn-Clinical Coordinator I - 08/31/2020 14:38 EDT Patient Disposition, General : Discharge Discharge To : Home with ambulatory/outpatient follow-up Mode Of Departure, General Discharge : Private vehicle Accompanied By, Discharge : Spouse IV Discontinued : Yes Personal Belongings With Patient : Yes Discharge Instructions Reviewed With, Opportunity For Questions Given : Patient, Spouse Patient Education Completed : Yes Teaching Method : Explanation Teaching Evaluation : Verbalizes understanding PATRICIA GODOY Rn-Clinical Coordinator I - 08/31/2020 12:59 EDT Electronically signed by Interface, [facility] Conversion Supervisor Pressing Department Cerner at 07/23/2022 9:10 AM CDT documented in this encounter Plan of Treatment Not on file documented as of this encounter Visit Diagnoses Not on filedocumented in this encounter
--- OUTSIDE RECORDS SUMMARY | 2024-09-18 07:39 | XMS_ITS | Referral Summary ---
Author Organization [employer] Address [address] [place] [address] Care Team Providers Care Utility Maintenance Worker Name Role Phone Unavailable Primary Care Provider Unavailabl e Social History Tobacco Use Types Packs/Day Years Used Date Smoking Tobacco: Never Assessed Sex and Gender Information Value Date Recorded Sex Assigned at Male 10/03/2021 5:40 PM CDT Legal Sex Male 5:40 PM CDT Gender Identity Male 10/03/2021 5:40 PM CDT Sexual Orientation Not on file Plan of Treatment Not on file
--- OUTSIDE RECORDS SUMMARY | 2024-09-18 07:39 | XMS_ITS | Encounter Summary ---
Author Organization [employer] Address [address] [place] [address] Care Team Providers Care [facility] Name Role Phone Unavailable Primary Care Provider Unavailabl e Encounter Details Date Type Department Care Team (Late st Contact Info) Description 08/31/2020 Transcribed Document [facility] [place] Family Medicine [address] [place] [address] ProviderZulma MD [address] [place], [place] [id number] Social History Tobacco Use Types Packs/Day Years Used Date Smoking Tobacco: Never Assessed Sex and Gender Information Value Date Recorded Sex Assigned at Male 10/03/2021 5:40 PM CDT Legal Sex Male 5:40 PM CDT Gender Identity Male 10/03/2021 5:40 PM CDT Sexual Orientation Not on file documented as of this encounter Miscellaneous Notes * Cerner Conversion Note - Historical ProviderMD - 08/31/2020 12:00 PM CDT Event Note Entered On: 08/31/2020 12:04 EDT Performed On: 08/31/2020 12:00 EDT by PATRICIA GODOY Rn-Clinical Coordinator I Event Note Description of Event : 1200: Received patient back from lab rep s/p heart cath. TR band in place to left radial artery. No bleeding or hematoma noted. 1400: Patient ambulated in hallway without difficulty. Discharge instructions given to patient and . They verbalized understanding. IV discontinued. 1410: Patient discharged home. PATRICIA GODOY, Anne Marie-Clinical Coordinator I - 08/31/2020 14:31 EDT documented in this encounter Plan of Treatment Not on file documented as of this encounter Visit Diagnoses Not on filedocumented in this encounter
--- OUTSIDE RECORDS SUMMARY | 2024-09-18 07:39 | XMS_ITS | Clinical Summary ---
Author Organization [employer] Address [address] [place] [address] Care Team Providers Care Plastic Duplicator Name Role Phone Unavailable Primary Care Provider [...]
--- OUTSIDE RECORDS SUMMARY | 2024-09-18 07:39 | XMS_ITS | Encounter Summary ---
Author Organization [employer] Address [address] [place] [address] Care Team Providers Care Product Safety Expert Name Role Phone Unavailable Primary Care Provider Unavailabl e Encounter Details Date Type Department Care Team (Late st Contact Info) Description 08/31/2020 Transcribed Document [facility] [place] Family Medicine [address] [place] [address] ProviderZulma MD [address] [place] [address] Social History Tobacco Use Types [...] Conversion Note - Zulma ProviderMD - 08/31/2020 1:40 PM CDT Patient Education Materials Follows: It???s Cold and Flu Season ??? How are you protecting yourself? The start of each year is often met with the peak of cold and flu season. This year is no different except that we are facing the new strain of coronavirus, COVID-19, and the widespread media attention this public health outbreak is causing. It is understandable that many are feeling overwhelmed by the thought of catching coronavirus and are concerned about how to best care for ourselves and our loved ones during this challenging time. Take comfort in knowing there are simple things you can do each and every day to help ensure your health is protected. Scrub a dub! Wash your hands! As simple as this sounds, it truly is the most effective way to stop the spread of germs. Be sure to use soap, and to make sure you are being thorough enough, sing the ???Happy Birthday?? song which is just the right length to ensure a thorough cleaning of your hands. Wash all parts of your hands, including the ???webs?? between your fingers and thumbs. When without, use a squeeze! If you are unable to get to a sink for soap and water to thoroughly wash your hands, use hand assistant hvac mechanic. While handwashing is best, hand assistant hvac mechanic helps to reduce the spread of germs when you are out and about. Have hand assistant hvac mechanic in several locations so you can always have some on hand ??? think about placing some bottles in your car, your purse, your suitcase, the diaper bag, or even in your coat pocket. Don???t rub, don???t touch! As tempting as it is to rub those scratchy eyes during allergy season or to rub a runny nose, don???t. In fact, if you can, try to avoid touching your face as much as possible, especially with unclean hands. Our eyes, nose, and mouth are easy access points for germs to enter our bodies. When in doubt, don???t go out! If you are feeling under the weather, stay home. If your child is feeling sick, keep them home. It is so important to not only rest when you are starting to get sick or are already under the weather, but also staying home and away from others helps to keep people from also getting sick. Don???t Fall[place] It! Sneezing this time of year is part of life, especially if you suffer from allergies or do have the cold or flu. To help minimize the spread of germs from sneezing or coughing, use a Kleenex or your elbow to protect against rogue spray and to help keep your hands clean. And remember, most people will have a runny nose, coughs and sneezes these days either from seasonal allergies, the cold or the flu, but if you do feel ill or feel like you need some help to feel better, please contact your Primary Care Provider to determine the best course of treatment for you which may include home care for mild cases or making an appointment to be seen to address more moderate needs. To find a PCP near you, please visit HYPERLINK [email or web address]. June 12, 2019 FAQ - Patient COVID-19 testing Why do I need a COVID-19 test in the hospital? We are testing patients as part of an overall effort to ensure the safety of our patients, staff and providers, and to limit the spread of the novel coronavirus throughout our community. What happens if I test positive for COVID-19? Any scheduled elective procedure will be postponed and treatment for the coronavirus will follow the protocol that is currently in place. If you are admitted to the hospital, we will use droplet precautions for patients who test positive for COVID-19. If I'm a patient, should I wear a mask? Yes. When you are in your room alone, you may remove your mask. When anyone enters your room, you should put your mask back on. Will I be allowed to have visitors if I am admitted to the hospital with COVID-19? As part of the standard care for COVID-19 patients, visitors will not be allowed to protect them from potential exposure to the novel coronavirus. If you have a health care support person with you during a pending test and the test comes back positive, your visitor will be asked to leave and follow up with their primary care provider. Public health may reach out to them to complete contact tracing. Will my status as COVID-19 positive be reported? Because COVID-19 is a public health threat, all positive cases are reported through the local health department and the [place] Department for Public Health. Those organizations are responsible for monitoring public health threats. What is contact tracing? The public health departments at the state and local levels use contact tracing to prevent the spread of infectious disease. They will work to identify people who have COVID-19 and their contacts who may have been exposed. What does contact tracing involve? Typically, a contact tracer will interview patients with COVID-19 to identify everyone with whom they have had close contact during the time they may have been infectious and then notify those contacts of potential exposure and refer them for testing. They may monitor the contacts for symptoms of COVID-19 and connect the contacts with services they may need during a recommended self-quarantine period. The patient's name is not revealed to anyone during the contact tracing interviews, even if a contact asks. Who would be considered a close contact ? According to the CDC, a close contact is defined as someone who was within 6 feet of an infected person for at least 15 minutes, starting from 48 hours before the person began feeling sick until the time the patient was isolated. What can a close contact expect during this process? A contact tracer from the health department will contact that person to inform them they have been exposed to COVID-19. If that happens, the contact should self-quarantine for 14 days, starting from the last date of possible exposure, monitor their health, wear a face covering and maintain social distancing - at least 6 feet from others at all times. Should a close contact seek medical care? Close contacts should take their temperature twice a day, watch for COVID-19 symptoms and notify the health department if they develop symptoms. They should also notify people with whom they have had recent close contact if they become ill. They should seek medical care if symptoms worsen or become severe, including trouble breathing, persistent pain or pressure in the chest, confusion, inability to wait or stay awake, or bluish lips or face. Steps to Help Prevent the Spread of COVID-19 if You Are Sick In all cases, follow the guidance of your health care provider and local health department. Your local health department determines the length of time for quarantine and will notify you with detailed information. Monitor your symptoms. Common symptoms of COVID-19 include fever, fatigue, diarrhea/vomiting, loss of taste and smell, and cough. Trouble breathing is a more serious symptom that means you should get medical attention. If you develop emergency warning signs for COVID-19 get medical attention immediately. Emergency warning signs include*: ??? Trouble breathing ??? Persistent pain or pressure in the chest ??? New confusion or inability to arouse ??? Bluish lips or face *This list is not all inclusive. Please consult your medical provider for any other symptoms that are severe or concerning. Call 911 if you have a medical emergency. If you have a medical emergency and need to call 911, notify the operator weapon locating radar that you have, or think you might have, COVID-19. If possible, put on a facemask before medical help arrives. Stay home except to get medical care. ??? Stay home: Most people with COVID-19 have mild illness and can recover at home without medical care. Do not leave your home, except to get medical care. Do not visit public areas. ??? Stay in touch with your doctor. Call before you get medical care. Be sure to get care if you have trouble breathing, or have any other emergency warning signs, or if you think it is an emergency. Separate yourself from other people in your home; this is known as home isolation. ??? Stay away from others: As much as possible, stay away from others. You should stay in a specific sick room if possible, and away from other people in your home. Use a separate bathroom, if available. Call ahead before visiting your doctor. ??? Call ahead: Many medical visits for routine care are being postponed or done by phone or telemedicine. If you have a medical appointment that cannot be postponed, call your doctor's office, and tell them you have or may have COVID-19. This will help the office protect themselves and other patients. If you are sick, wear a facemask in the following situations, if available. ??? If you are sick: You should wear a facemask, if available, when you are around other people (including before you enter a health care provider's office). ??? If you are caring for others: If the person who is sick is not able to wear a facemask (for example, because it causes trouble breathing), then as their caregiver, you should wear a facemask when in the same room with them. Visitors, other than caregivers, are not recommended. Cover your coughs and sneezes. ??? Cover: Cover your mouth and nose with a tissue when you cough or sneeze. ??? Dispose: Throw used tissues into a lined trash can. ??? Wash hands: Immediately wash your hands with soap and water for at least 20 seconds. If soap and water are not available, clean your hands with an alcohol-based hand assistant hvac mechanic that contains at least 60% alcohol. Clean your hands often. ??? Wash hands: Wash your hands often with soap and water for at least 20 seconds when visibly dirty. This is especially important after blowing your nose, coughing or sneezing, and going to the bathroom, and before eating or preparing food. ??? Hand assistant hvac mechanic: Use an alcohol-based hand assistant hvac mechanic with at least 60% alcohol, covering all surfaces of your hands and rubbing them together until they feel dry. ??? Avoid touching: Avoid touching your eyes, nose and mouth with unwashed hands. Avoid sharing personal household items. ??? Do not share: Do not share dishes, drinking glasses, cups, eating utensils, towels or bedding with other people in your home. ??? Wash thoroughly after use: After using these items, wash them thoroughly with soap and water or put them in the learning program manager. Clean all high-touch surfaces every day. Clean high-touch surfaces in your isolation area ( sick room and bathroom) every day; let a caregiver clean and disinfect high-touch surfaces in other areas of the home. ??? Clean and disinfect: Routinely clean high-touch surfaces in your sick room and bathroom. Let someone else clean and disinfect surfaces in common areas, but not your bedroom and bathroom. ? If a caregiver or other person needs to clean and disinfect a sick person's bedroom or bathroom, they should do so on an as-needed basis. The caregiver/other person should wear a mask and wait as long as possible after the sick person has used the bathroom. ? High-touch surfaces include phones, remote controls, counters, tabletops, doorknobs, bathroom fixtures, toilets, keyboards, tablets and bedside tables. ??? Clean and disinfect areas that may have blood, stool, or body fluids on them. ??? Household tierce filler and disinfectants: Clean the area or item with soap and water or another detergent if it is dirty. Then, use a household disinfectant. ?? Be sure to follow the instructions on the label to ensure safe and effective use of the product. Many products recommend keeping the surface wet for several minutes to ensure germs are killed. Many also recommend precautions such as wearing gloves and making sure you have good ventilation during use of the product. ?? Most EPA-registered household disinfectants should be effective. A full list of disinfectants can be found here: https://www.epa.gov/pesticide-registration/pqpv-j-nderlqtxqcrcy-hbk-oyzrjsl-ah rs-cov-2 Neurology Radial Site Care This sheet gives you information about how to care for yourself after your procedure. Your health care provider may also give you more specific instructions. If you have problems or questions, contact your health care provider. What can I expect after the procedure? After the procedure, it is common to have: ??? Bruising and tenderness at the catheter insertion area. Follow these instructions at home: Medicines ??? Take wtuy-nix-mipggvp and prescription medicines only as told by your health care provider. Insertion site care ??? Follow instructions from your health care provider about how to take care of your insertion site. Make sure you: ? Wash your hands with soap and water before you change your bandage (dressing). If soap and water are not available, use hand assistant hvac mechanic. ? Change your dressing as told by your health care provider. ? Leave stitches (sutures), skin glue, or adhesive strips in place. These skin closures may need to stay in place for 2 weeks or longer. If adhesive strip edges start to loosen and curl up, you may trim the loose edges. Do not remove adhesive strips completely unless your health care provider tells you to do that. ??? Check your insertion site every day for signs of infection. Check for: ? Redness, swelling, or pain. ? Fluid or blood. ? Pus or a bad smell. ? Warmth. ??? Do not take baths, swim, or use a hot tub until your health care provider approves. ??? You may shower 24?48 hours after the procedure, or as directed by your health care provider. ? Remove the dressing and gently wash the site with plain soap and water. ? Pat the area dry with a clean towel. ? Do not rub the site. That could cause bleeding. ??? Do not apply powder or lotion to the site. Activity ??? For 24 hours after the procedure, or as directed by your health care provider: ? Do not flex or bend the affected arm. ? Do not push or pull heavy objects with the affected arm. ? Do not drive yourself home from the hospital or clinic. You may drive 24 hours after the procedure unless your health care provider tells you not to. ? Do not operate machinery or power tools. ??? Do not lift anything that is heavier than 10 lb (4.5 kg), or the limit that you are told, until your health care provider says that it is safe. ??? Ask your health care provider when it is okay to: ? Return to work or school. ? Resume usual physical activities or sports. ? Resume sexual activity. General instructions ??? If the catheter site starts to bleed, raise your arm and put firm pressure on the site. If the bleeding does not stop, get help right away. This is a medical emergency. ??? If you went home on the same day as your procedure, a responsible adult should be with you for the first 24 hours after you arrive home. ??? Keep all follow-up visits as told by your health care provider. This is important. Contact a health care provider if: ??? You have a fever. ??? You have redness, swelling, or yellow drainage around your insertion site. Get help right away if: ??? You have unusual pain at the radial site. ??? The catheter insertion area swells very fast. ??? The insertion area is bleeding, and the bleeding does not stop when you hold steady pressure on the area. ??? Your arm or hand becomes pale, cool, tingly, or numb. These symptoms may represent a serious problem that is an emergency. Do not wait to see if the symptoms will go away. Get medical help right away. Call your local emergency services (911 in the [place] Do not drive yourself to the hospital. Summary ??? After the procedure, it is common to have bruising and tenderness at the site. ??? Follow instructions from your health care provider about how to take care of your radial site wound. Check the wound every day for signs of infection. ??? Do not lift anything that is heavier than 10 lb (4.5 kg), or the limit that you are told, until your health care provider says that it is safe. This information is not intended to replace advice given to you by your health care provider. Make sure you discuss any questions you have with your health care provider. Document Revised: 04/30/2018 Document Reviewed: 04/30/2018 [employer] Patient Education ? 2020 [employer] Pharmacology Moderate Conscious Sedation, Adult, Care After These instructions provide you with information about caring for yourself after your procedure. Your health care provider may also give you more specific instructions. Your treatment has been planned according to current medical practices, but problems sometimes occur. Call your health care provider if you have any problems or questions after your procedure. What can I expect after the procedure? After your procedure, it is common: ??? To feel sleepy for several hours. ??? To feel clumsy and have poor balance for several hours. ??? To have poor judgment for several hours. ??? To vomit if you eat too soon. Follow these instructions at home: For at least 24 hours after the procedure: ??? Do not: ? Participate in activities where you could fall or become injured. ? Drive. ? Use heavy machinery. ? Drink alcohol. ? Take sleeping pills or medicines that cause drowsiness. ? Make important decisions or sign legal documents. ? Take care of children on your own. ??? Rest. Eating and drinking ??? Follow the diet recommended by your health care provider. ??? If you vomit: ? Drink water, juice, or soup when you can drink without vomiting. ? Make sure you have little or no nausea before eating solid foods. General instructions ??? Have a responsible adult stay with you until you are awake and alert. ??? Take afui-dzd-dtrxfqt and prescription medicines only as told by your health care provider. ??? If you smoke, do not smoke without supervision. ??? Keep all follow-up visits as told by your health care provider. This is important. Contact a health care provider if: ??? You keep feeling nauseous or you keep vomiting. ??? You feel light-headed. ??? You develop a rash. ??? You have a fever. Get help right away if: ??? You have trouble breathing. This information is not intended to replace advice given to you by your health care provider. Make sure you discuss any questions you have with your health care provider. Document Revised: 03/07/2018 Document Reviewed: 07/14/2016 [employer] Patient Education ? 2020 [employer]. Pulmonary Medicine Steps to Quit Smoking Smoking tobacco is the leading cause of preventable . It can affect almost every organ in the body. Smoking puts you and those around you at risk for developing many serious chronic diseases. Quitting smoking can be difficult, but it is one of the best things that you can do for your health. It is never too late to quit. How do I get ready to quit? When you decide to quit smoking, create a plan to help you succeed. Before you quit: ??? Pick a date to quit. Set a date within the next 2 weeks to give you time to prepare. ??? Write down the reasons why you are quitting. Keep this list in places where you will see it often. ??? Tell your family, friends, and co-workers that you are quitting. Support from your loved ones can make quitting easier. ??? Talk with your health care provider about your options for quitting smoking. ??? Find out what treatment options are covered by your health insurance. ??? Identify people, places, things, and activities that make you want to smoke (triggers). Avoid them. What first steps can I take to quit smoking? Throw away all cigarettes at home, at work, and in your car. ??? Throw away smoking accessories, such as ashtrays and lighters. ??? Clean your car. Make sure to empty the ashtray. ??? Clean your home, including curtains and carpets. What strategies can I use to quit smoking? Talk with your health care provider about combining strategies, such as taking medicines while you are also receiving in-person counseling. Using these two strategies together makes you more likely to succeed in quitting than if you used either strategy on its own. ??? If you are or , talk with your health care provider about finding counseling or other support strategies to quit smoking. Do not take medicine to help you quit smoking unless your health care provider tells you to do so. To quit smoking: Quit right away ??? Quit smoking completely, instead of gradually reducing how much you smoke over a period of time. Research shows that stopping smoking right away is more successful than gradually quitting. ??? Attend in-person counseling to help you build problem-solving skills. You are more likely to succeed in quitting if you attend counseling sessions regularly. Even short sessions of 10 minutes can be effective. Take medicine You may take medicines to help you quit smoking. Some medicines require a prescription and some you can purchase bygy-hna-nzibrgb. Medicines may have nicotine in them to replace the nicotine in cigarettes. Medicines may: ??? Help to stop cravings. ??? Help to relieve withdrawal symptoms. Your health care provider may recommend: ??? Nicotine patches, gum, or lozenges. ??? Nicotine inhalers or sprays. ??? Non-nicotine medicine that is taken by mouth. Find resources Find resources and support systems that can help you to quit smoking and remain smoke-free after you quit. These resources are most helpful when you use them often. They include: ??? Online chats with a counselor. ??? Telephone quitlines. ??? Printed self-help materials. ??? Support groups or group counseling. ??? Text messaging programs. ??? Mobile phone apps or applications. Use apps that can help you stick to your quit plan by providing reminders, tips, and encouragement. There are many free apps for mobile devices as well as websites. Examples include Quit Guide from the CDC and smokefree.gov What things can I do to make it easier to quit? Reach out to your family and friends for support and encouragement. Call telephone quitlines (8-894-[facility]-NOW), reach out to support groups, or work with a counselor for support. ??? Ask people who smoke to avoid smoking around you. ??? Avoid places that trigger you to smoke, such as bars, parties, or smoke-break areas at work. ??? Spend time with people who do not smoke. ??? Lessen the stress in your life. Stress can be a smoking trigger for some people. To lessen stress, try: ? Exercising regularly. ? Doing deep-breathing exercises. ? Doing yoga. ? Meditating. ? Performing a body scan. This involves closing your eyes, scanning your body from head to toe, and noticing which parts of your body are particularly tense. Try to relax the muscles in those areas. How will I feel when I quit smoking? Day 1 to 3 weeks Within the first 24 hours of quitting smoking, you may start to feel withdrawal symptoms. These symptoms are usually most noticeable 2?3 days after quitting, but they usually do not last for more than 2?3 weeks. You may experience these symptoms: ??? Mood swings. ??? Restlessness, anxiety, or irritability. ??? Trouble concentrating. ??? Dizziness. ??? Strong cravings for sugary foods and nicotine. ??? Mild weight gain. ??? Constipation. ??? Nausea. ??? Coughing or a sore throat. ??? Changes in how the medicines that you take for unrelated issues work in your body. ??? Depression. ??? Trouble sleeping (insomnia). Week 3 and afterward After the first 2?3 weeks of quitting, you may start to notice more positive results, such as: ??? Improved sense of smell and taste. ??? Decreased coughing and sore throat. ??? Slower heart rate. ??? Lower blood pressure. ??? Clearer skin. ??? The ability to breathe more easily. ??? Fewer sick days. Quitting smoking can be very challenging. Do not get discouraged if you are not successful the first time. Some people need to make many attempts to quit before they achieve long-term success. Do your best to stick to your quit plan, and talk with your health care provider if you have any questions or concerns. Summary ??? Smoking tobacco is the leading cause of preventable . Quitting smoking is one of the best things that you can do for your health. ??? When you decide to quit smoking, create a plan to help you succeed. ??? Quit smoking right away, not slowly over a period of time. ??? When you start quitting, seek help from your health care provider, family, or friends. This information is not intended to replace advice given to you by your health care provider. Make sure you discuss any questions you have with your health care provider. Document Revised: 12/18/2019 Document Reviewed: 06/13/2019 [employer] Patient Education ? 2020 [employer]. Radiology Coronary Angiogram A coronary angiogram is an X-ray procedure that is used to examine the arteries in the heart. Contrast dye is injected through a long, thin tube (catheter) into these arteries. Then X-rays are taken to show any blockage in these arteries. You may have this procedure if you: ??? Are having chest pain, or other symptoms of angina, and you are at risk for heart disease. ??? Have an abnormal stress test or test of your heart's electrical activity (electrocardiogram, or ECG). ??? Have chest pain and heart failure. ??? Are having irregular heart rhythms. A coronary angiogram or heart catheterization can show if you have valve disease or a disease of the aorta. This procedure can also be used to check the overall function of your heart muscle. Let your health care provider know about: ??? Any allergies you have, including allergies to medicines or contrast dye. ??? All medicines you are taking, including vitamins, herbs, eye drops, creams, and mfyi-hrg-cchhcmj medicines. ??? Any problems you or family members have had with anesthetic medicines. ??? Any blood disorders you have. ??? Any surgeries you have had. ??? Any history of kidney problems or kidney failure. ??? Any medical conditions you have. ??? Whether you are or may be . ??? Whether you are . What are the risks? Generally, this is a safe procedure. However, problems may occur, including: ??? Infection. ??? Allergic reaction to medicines or dyes that are used. ??? Bleeding from the insertion site or other places. ??? Damage to nearby structures, such as blood vessels, or damage to kidneys from contrast dye. ??? Irregular heart rhythms. ??? Stroke (rare). ??? Heart attack (rare). What happens before the procedure? Staying hydrated Follow instructions from your health care provider about hydration, which may include: ??? Up to 2 hours before the procedure ? you may continue to drink clear liquids, such as water, clear fruit juice, black coffee, and plain tea. Eating and drinking restrictions Follow instructions from your health care provider about eating and drinking, which may include: ??? 8 hours before the procedure ? stop eating heavy meals or foods, such as meat, fried foods, or fatty foods. ??? 6 hours before the procedure ? stop eating light meals or foods, such as toast or cereal. ??? 6 hours before the procedure ? stop drinking milk or drinks that contain milk. ??? 2 hours before the procedure ? stop drinking clear liquids. Medicines Ask your health care provider about: ??? Changing or stopping your regular medicines. This is especially important if you are taking diabetes medicines or blood thinners. ??? Taking medicines such as aspirin and ibuprofen. These medicines can thin your blood. Do not take these medicines unless your health care provider tells you to take them. Aspirin may be recommended before coronary angiograms even if you do not normally take it. ??? Taking arhn-dan-grxvkjf medicines, vitamins, herbs, and supplements. General instructions ??? Do not use any products that contain nicotine or tobacco for at least 4 weeks before the procedure. These products include cigarettes, e-cigarettes, and chewing tobacco. If you need help quitting, ask your health care provider. ??? You may have an exam or testing. ??? Plan to have someone take you home from the hospital or clinic. ??? If you will be going home right after the procedure, plan to have someone with you for 24 hours. ??? Ask your health care provider: ? How your insertion site will be marked. ? What steps will be taken to help prevent infection. These may include: ? Removing hair at the insertion site. ? Washing skin with a germ-killing soap. ? Taking antibiotic medicine. What happens during the procedure? You will lie on your back on an X-ray table. ??? An IV will be inserted into one of your veins. ??? Electrodes will be placed on your chest. ??? You will be given one or more of the following: ? A medicine to help you relax (sedative). ? A medicine to numb the catheter insertion area (local anesthetic). ??? You will be connected to a continuous ECG monitor. ??? The catheter will be inserted into an artery in one of these areas: ? Your groin area in your upper thigh. ? Your wrist. ? The fold of your arm, near your elbow. ??? An X-ray procedure (fluoroscopy) will be used to help guide the catheter to the opening of the blood vessel to be used. ??? A dye will be injected into the catheter and X-rays will be taken. The dye will help to show any narrowing or blockages in the heart arteries. ??? Tell your health care provider if you have chest pain or trouble breathing. ??? If blockages are found, another procedure may be done to open the artery. ??? The catheter will be removed after the fluoroscopy is complete. ??? A bandage (dressing) will be placed over the insertion site. Pressure will be applied to stop bleeding. ??? The IV will be removed. The procedure may vary among health care providers and hospitals. What happens after the procedure? Your blood pressure, heart rate, breathing rate, and blood oxygen level will be monitored until you leave the hospital or clinic. ??? You will need to lie still for a few hours, or for as long as told by your health care provider. ? If the procedure is done through the groin, you will be told not to bend or cross your legs. ??? The insertion site and the pulse in your foot or wrist will be checked often. ??? More blood tests, X-rays, and an ECG may be done. ??? Do not drive for 24 hours if you were given a sedative during your procedure. Summary ??? A coronary angiogram is an X-ray procedure that is used to examine the arteries in the heart. ??? Contrast dye is injected through a long, thin tube (catheter) into each artery. ??? Tell your health care provider about any allergies you have, including allergies to contrast dye. ??? After the procedure, you will need to lie still for a few hours and drink plenty of fluids. This information is not intended to replace advice given to you by your health care provider. Make sure you discuss any questions you have with your health care provider. Document Revised: 10/15/2019 Document Reviewed: 10/15/2019 [employer] Patient Education ? 2020 [employer] documented in this encounter Plan of Treatment Not on file documented as of this encounter Visit Diagnoses Not on filedocumented in this encounter
--- OUTSIDE RECORDS SUMMARY | 2024-09-18 07:39 | XMS_ITS | Encounter Summary ---
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 Smoking puts you, and those around you, at risk for developing many serious chronic diseases. Quitting smoking is difficult, but it is one of the best things that you can do for your health. It is never too late to quit. What are the benefits of quitting smoking? When you quit smoking, you lower your risk of developing serious diseases and conditions, such as: ??? Lung cancer or lung disease, such as COPD. ??? Heart disease. ??? Stroke. ??? Heart attack. ??? Infertility. ??? Osteoporosis and bone fractures. Additionally, symptoms such as coughing, wheezing, and shortness of breath may get better when you quit. You may also find that you get sick less often because your body is stronger at fighting off colds and infections. If you are , quitting smoking can help to reduce your chances of having a baby of low weight. How do I get ready to quit? When you decide to quit smoking, create a plan to make sure that you are successful. Before you quit: ??? Pick a date to quit. Set a date within the next two weeks to give you time to prepare. ??? Write down the reasons why you are quitting. Keep this list in places where you will see it often, such as on your bathroom mirror or in your car or wallet. ??? Identify the people, places, things, and activities that make you want to smoke (triggers) and avoid them. Make sure to take these actions: ? Throw away all cigarettes at home, at work, and in your car. ? Throw away smoking accessories, such as ashtrays and lighters. ? Clean your car and make sure to empty the ashtray. ? Clean your home, including curtains and carpets. ??? Tell your family, friends, and coworkers that you are quitting. Support from your loved ones can make quitting easier. ??? Talk with your health care provider about your options for quitting smoking. ??? Find out what treatment options are covered by your health insurance. What strategies can I use to quit smoking? Talk with your healthcare provider about different strategies to quit smoking. Some strategies include: ??? Quitting smoking altogether instead of gradually lessening how much you smoke over a period of time. Research shows that quitting ?cold turkey? is more successful than gradually quitting. ??? Attending in-person counseling to help you build problem-solving skills. You are more likely to have success in quitting if you attend several counseling sessions. Even short sessions of 10 minutes can be effective. ??? Finding resources and support systems that can help you to quit smoking and remain smoke-free after you quit. These resources are most helpful when you use them often. They can include: ? Online chats with a counselor. ? Telephone quitlines. ? Printed self-help materials. ? Support groups or group counseling. ? Text messaging programs. ? Mobile phone applications. ??? Taking medicines to help you quit smoking. (If you are or , talk with your health care provider first.) Some medicines contain nicotine and some do not. Both types of medicines help with cravings, but the medicines that include nicotine help to relieve withdrawal symptoms. Your health care provider may recommend: ? Nicotine patches, gum, or lozenges. ? Nicotine inhalers or sprays. ? Non-nicotine medicine that is taken by mouth. Talk with your health care provider about combining strategies, such as taking medicines while you are also receiving in-person counseling. Using these two strategies together makes you more likely to succeed in quitting than if you used either strategy on its own. If you are or , talk with your health care provider about finding counseling or other support strategies to quit smoking. Do not take medicine to help you quit smoking unless told to do so by your health care provider. What things can I do to make it easier to quit? Quitting smoking might feel overwhelming at first, but there is a lot that you can do to make it easier. Take these important actions: ??? Reach out to your family and friends and ask that they support and encourage you during this time. Call telephone quitlines, reach out to support groups, or work with a counselor for support. ??? Ask people who smoke to avoid smoking around you. ??? Avoid places that trigger you to smoke, such as bars, parties, or smoke-break areas at work. ??? Spend time around people who do not smoke. ??? Lessen stress in your life, because stress can be a smoking trigger for some people. To lessen stress, try: ? Exercising regularly. ? Deep-breathing exercises. ? Yoga. ? Meditating. ? Performing a body scan. This involves closing your eyes, scanning your body from head to toe, and noticing which parts of your body are particularly tense. Purposefully relax the muscles in those areas. ??? Download or purchase mobile phone or tablet apps (applications) that can help you stick to your quit plan by providing reminders, tips, and encouragement. There are many free apps, such as QuitGuide from the CDC (Centers for Disease Control and Prevention). You can find other support for quitting smoking (smoking cessation) through smokefree.gov and other websites. How will I feel when I quit smoking? Within the first 24 hours of quitting smoking, you may start to feel some withdrawal symptoms. These symptoms are usually most noticeable 2?3 days after quitting, but they usually do not last beyond 2?3 weeks. Changes or symptoms that you might experience include: ??? Mood swings. ??? Restlessness, anxiety, or irritation. ??? Difficulty concentrating. ??? Dizziness. ??? Strong cravings for sugary foods in addition to nicotine. ??? Mild weight gain. ??? Constipation. ??? Nausea. ??? Coughing or a sore throat. ??? Changes in how your medicines work in your body. ??? A depressed mood. ??? Difficulty sleeping (insomnia). After the first 2?3 weeks of quitting, you may start to notice more positive results, such as: ??? Improved sense of smell and taste. ??? Decreased coughing and sore throat. ??? Slower heart rate. ??? Lower blood pressure. ??? Clearer skin. ??? The ability to breathe more easily. ??? Fewer sick days. Quitting smoking is very challenging for most people. Do not get discouraged if you are not successful the first time. Some people need to make many attempts to quit before they achieve long-term success. Do your best to stick to your quit plan, and talk with your health care provider if you have any questions or concerns. This information is not intended to replace advice given to you by your health care provider. Make sure you discuss any questions you have with your health care provider. Document Released: 03/19/2002 Document Revised: 10/29/2017 Document Reviewed: 08/09/2015 [employer] Interactive Patient Education ? 2019 [employer] Health Risks of Smoking Smoking cigarettes is very bad for your health. Tobacco smoke has over 200 known poisons in it. It contains the poisonous gases nitrogen oxide and carbon monoxide. There are over 60 chemicals in tobacco smoke that cause cancer. Smoking is difficult to quit because a chemical in tobacco, called nicotine, causes addiction or dependence. When you smoke and inhale, nicotine is absorbed rapidly into the bloodstream through your lungs. Both inhaled and non-inhaled nicotine may be addictive. What are the risks of cigarette smoke? Cigarette smokers have an increased risk of many serious medical problems, including: ??? Lung cancer. ??? Lung disease, such as pneumonia, bronchitis, and emphysema. ??? Chest pain (angina) and heart attack because the heart is not getting enough oxygen. ??? Heart disease and peripheral blood vessel disease. ??? High blood pressure (hypertension). ??? Stroke. ??? Oral cancer, including cancer of the lip, mouth, or voice box. ??? Bladder cancer. ??? Pancreatic cancer. ??? Cervical cancer. ??? complications, including premature . ??? Stillbirths and smaller babies, defects, and genetic damage to sperm. ??? Early menopause. ??? Lower estrogen level for women. ??? Infertility. ??? Facial wrinkles. ??? Blindness. ??? Increased risk of broken bones (fractures). ??? Senile dementia. ??? Stomach ulcers and internal bleeding. ??? Delayed wound healing and increased risk of complications during surgery. ??? Even smoking lightly shortens your life expectancy by several years. Because of secondhand smoke exposure, children of smokers have an increased risk of the following: ??? Sudden syndrome (SIDS). ??? Respiratory infections. ??? Lung cancer. ??? Heart disease. ??? Ear infections. What are the benefits of quitting? There are many health benefits of quitting smoking. Here are some of them: ??? Within days of quitting smoking, your risk of having a heart attack decreases, your blood flow improves, and your lung capacity improves. Blood pressure, pulse rate, and breathing patterns start returning to normal soon after quitting. ??? Within months, your lungs may clear up completely. ??? Quitting for 10 years reduces your risk of developing lung cancer and heart disease to almost that of a nonsmoker. ??? People who quit may see an improvement in their overall quality of life. How do I quit smoking? Smoking is an addiction with both physical and psychological effects, and longtime habits can be hard to change. Your health care provider can recommend: ??? Programs and community resources, which may include group support, education, or talk therapy. ??? Prescription medicines to help reduce cravings. ??? Nicotine replacement products, such as patches, gum, and nasal sprays. Use these products only as directed. Do not replace cigarette smoking with electronic cigarettes, which are commonly called e-cigarettes. The safety of e-cigarettes is not known, and some may contain harmful chemicals. ??? A combination of two or more of these methods. Where to find more information ??? [place] [employer]: www.lung.org ??? [place] [employer]: www.cancer.org Summary ??? Smoking cigarettes is very bad for your health. Cigarette smokers have an increased risk of many serious medical problems, including several cancers, heart disease, and stroke. ??? Smoking is an addiction with both physical and psychological effects, and longtime habits can be hard to change. ??? By stopping right away, you can greatly reduce the risk of medical problems for you and your family. ??? To help you quit smoking, your health care provider can recommend programs, community resources, prescription medicines, and nicotine replacement products such as patches, gum, and nasal sprays. This information is not intended to replace advice given to you by your health care provider. Make sure you discuss any questions you have with your health care provider. Document Released: 05/02/2005 Document Revised: 03/29/2017 Document Reviewed: 03/29/2017 [employer] Interactive Patient Education ? 2019 [employer]. Moderate Conscious Sedation, Adult, Care After These [...] you are awake and alert. ??? Take lddv-ipq-ujcuqer and prescription medicines only as told by [...] have with your health care provider. Document Released: 01/13/2014 Document Revised: 08/27/2016 Document Reviewed: 07/14/2016 [employer] Interactive Patient Education ? 2019 [employer]. Groin Site Care Refer to this sheet in the next few weeks. These instructions provide you with information on caring for yourself after your procedure. Your caregiver may also give you more specific instructions. Your treatment has been planned according to current medical practices, but problems sometimes occur. Call your caregiver if you have any problems or questions after your procedure. HOME CARE INSTRUCTIONS ? You may shower 24 hours after the procedure. Remove the bandage (dressing ) and gently wash the site with plain soap and water. Gently pat the site dry. ? Do not apply powder or lotion to the site. ? Do not sit in a bathtub, swimming pool, or whirlpool for 5 to 7 days. ? No bending, squatting, or lifting anything over 10 pounds (4.5 kg) as directed by your caregiver. ? Inspect the site at least twice daily. ? Do not drive home if you are discharged the same day of the procedure. Have someone else drive you. ? You may drive 24 hours after the procedure unless otherwise instructed by your caregiver. What to expect: ? Any bruising will usually fade within 1 to 2 weeks. ? Blood that collects in the tissue (hematoma ) may be painful to the touch. It should usually decrease in size and tenderness within 1 to 2 weeks. SEEK IMMEDIATE MEDICAL CARE IF: ? You have unusual pain at the groin site or down the affected leg. ? You have redness, warmth, swelling, or pain at the groin site. ? You have drainage (other than a small amount of blood on the dressing). ? You have chills. ? You have a fever or persistent symptoms for more than 72 hours. ? You have a fever and your symptoms suddenly get worse. ? Your leg becomes pale, cool, tingly, or numb. ? You have heavy bleeding from the site. Hold pressure on the site. Document Released: 04/27/2011 Document Revised: 06/16/2012 Document Reviewed: 04/27/2011 ExitCare? Patient Information ?2013 [employer]. Angiogram, Care After This sheet gives you information about how to care for yourself after your procedure. Your health care provider may also give you more specific instructions. If you have problems or questions, contact your health care provider. What can I expect after the procedure? After the procedure, it is common to have bruising and tenderness at the catheter insertion area. Follow these instructions at home: Insertion site care ??? Follow instructions from your health care provider about how to take care of your insertion site. Make sure you: ? Wash your hands with soap and water before you change your bandage (dressing). If soap and water are not available, use hand transition of care specialist. ? Change your dressing as told by [...] provider tells you to do that. ??? Do not take baths, swim, or use a hot tub until your health care provider approves. ??? You may shower 24?48 hours after the procedure or as told by your health care provider. ? Gently wash the site with plain soap and water. ? Pat the area dry with a clean towel. ? Do not rub the site. This may cause bleeding. ??? Do not apply powder or lotion to the site. Keep the site clean and dry. ??? Check your insertion site every day for signs of infection. Check for: ? Redness, swelling, or pain. ? Fluid or blood. ? Warmth. ? Pus or a bad smell. Activity ??? Rest as told by your health care provider, usually for 1?2 days. ??? Do not lift anything that is heavier than 10 lbs. (4.5 kg) or as told by your health care provider. ??? Do not drive for 24 hours if you were given a medicine to help you relax (sedative). ??? Do not drive or use heavy machinery while taking prescription pain medicine. General instructions ??? Return to your normal activities as told by your health care provider, usually in about a week. Ask your health care provider what activities are safe for you. ??? If the catheter site starts bleeding, lie flat and put pressure on the site. If the bleeding does not stop, get help right away. This is a medical emergency. ??? Drink enough fluid to keep your urine clear or pale yellow. This helps flush the contrast dye from your body. ??? Take vkyz-voc-vqnaddb and prescription medicines only as told by your health care provider. ??? Keep all follow-up visits as told by your health care provider. This is important. Contact a health care provider if: ??? You have a fever or chills. ??? You have redness, swelling, or pain around your insertion site. ??? You have fluid or blood coming from your insertion site. ??? The insertion site feels warm to the touch. ??? You have pus or a bad smell coming from your insertion site. ??? You have bruising around the insertion site. ??? You notice blood collecting in the tissue around the catheter site (hematoma). The hematoma may be painful to the touch. Get help right away if: ??? You have severe pain at the catheter insertion area. ??? The catheter insertion area swells very fast. ??? The catheter insertion area is bleeding, and the bleeding does not stop when you hold steady pressure on the area. ??? The area near or just beyond the catheter insertion site becomes pale, cool, tingly, or numb. These [...] to have bruising and tenderness at the catheter insertion area. ??? After the procedure, it is important to rest and drink plenty of fluids. ??? Do not take baths, swim, or use a hot tub until your health care provider says it is okay to do so. You may shower 24?48 hours after the procedure or as told by your health care provider. ??? If the catheter site starts bleeding, lie flat and put pressure on the site. If the bleeding does not stop, get help right away. This is a medical emergency. This information is not intended to replace advice given to you by your health care provider. Make sure you discuss any questions you have with your health care provider. Document Released: 10/11/2005 Document Revised: 02/27/2017 Document Reviewed: 02/27/2017 [employer] Interactive Patient Education ? 2019 [employer] Coronary Angiogram A coronary angiogram is an X-ray procedure that is used to examine the arteries in the heart. In this procedure, a dye (contrast dye) is injected through a long, thin tube (catheter). The catheter is inserted through the groin, wrist, or arm. The dye is injected into each artery, then X-rays are taken to show if there is a blockage in the arteries of the heart. This procedure can also show if you have valve disease or a disease of the aorta, and it can be used to check the overall function of your heart muscle. You may have a coronary angiogram if: ??? You are having chest pain, or other symptoms of angina, and you are at risk for heart disease. ??? You have an abnormal electrocardiogram (ECG) or stress test. ??? You have chest pain and heart failure. ??? You are having irregular heart rhythms. ??? You and your health care provider determine that the benefits of the test information outweigh the risks of the procedure. Let your health care provider know about: ??? Any allergies you have, including allergies to contrast dye. ??? All medicines you are taking, including vitamins, herbs, eye drops, creams, and tjhd-vge-uzmqxmm medicines. ??? Any problems you or family members have had with anesthetic medicines. ??? Any blood disorders you have. ??? Any surgeries you have had. ??? History of kidney problems or kidney failure. ??? Any medical conditions you have. ??? Whether you are or may be . What are the risks? Generally, this is a safe procedure. However, problems may occur, including: ??? Infection. ??? Allergic reaction to medicines or dyes that are used. ??? Bleeding from the access site or other locations. ??? Kidney injury, especially in people with impaired kidney function. ??? Stroke (rare). ??? Heart attack (rare). ??? Damage to other structures or organs. What happens before the procedure? Staying hydratedFollow instructions from your health care provider about hydration, which may include: ??? Up to 2 hours before the procedure ? you may continue to drink clear liquids, such as water, clear fruit juice, black coffee, and plain tea. Eating and drinking restrictionsFollow instructions from your health care provider about eating and drinking, which may include: ??? 8 hours before the procedure ? stop eating heavy meals or foods such as meat, fried foods, or fatty foods. ??? 6 hours before the procedure ? stop eating light meals or foods, such as toast or cereal. ??? 2 hours before the procedure ? stop drinking clear liquids. General instructions ??? Ask your health care provider about: ? Changing or stopping your regular medicines. This is especially important if you are taking diabetes medicines or blood thinners. ? Taking medicines such as ibuprofen. These medicines can thin your blood. Do not take these medicines before your procedure if your health care provider instructs you not to, though aspirin may be recommended prior to coronary angiograms. ??? Plan to have someone take you home from the hospital or clinic. ??? You may need to have blood tests or X-rays done. What happens during the procedure? An IV tube will be inserted into one of your veins. ??? You will be given one or more of the following: ? A medicine to help you relax (sedative). ? A medicine to numb the area where the catheter will be inserted into an artery (local anesthetic). ??? To reduce your risk of infection: ? Your health care team will wash or sanitize their hands. ? Your skin will be washed with soap. ? Hair may be removed from the area where the catheter will be inserted. ??? You will be connected to a continuous ECG monitor. ??? The catheter will be inserted into an artery. The location may be in your groin, in your wrist, or in the fold of your arm (near your elbow). ??? A type of X-ray (fluoroscopy) will be used to help guide the catheter to the opening of the blood vessel that is being examined. ??? A dye will be injected into the catheter, and X-rays will be taken. The dye will help to show where any narrowing or blockages are located in the heart arteries. ??? Tell your health care provider if you have any chest pain or trouble breathing during the procedure. ??? If blockages are found, your health care provider may perform another procedure, such as inserting a coronary stent. The procedure may vary among health care providers and hospitals. What happens after the procedure? After the procedure, you will need to keep the area still for a few hours, or for as long as told by your health care provider. If the procedure is done through the groin, you will be instructed to not bend and not cross your legs. ??? The insertion site will be checked frequently. ??? The pulse in your foot or wrist will be checked frequently. ??? You may have additional blood tests, X-rays, and a test that records the electrical activity of your heart (ECG). ??? Do notdrive for 24 hours if you were given a sedative. Summary ??? A coronary angiogram is an X-ray procedure that is used to look into the arteries in the heart. ??? During the procedure, a dye (contrast dye) is injected through a long, thin tube (catheter). The catheter is inserted through the groin, wrist, or arm. ??? Tell your health care provider about any allergies you have, including allergies to contrast dye. ??? After the procedure, you will need to keep the area still for a few hours, or for as long as told by your health care provider. This information is not intended to replace advice given to you by your health care provider. Make sure you discuss any questions you have with your health care provider. Document Released: 09/29/2003 Document Revised: 01/04/2017 Document Reviewed: 01/04/2017 [employer] Interactive Patient Education ? 2017 [employer] Cardiovascular Coronary Artery Disease, Male Coronary artery disease (CAD) is a condition in which the arteries that lead to the heart (coronary arteries) become narrow or blocked. The narrowing or blockage can lead to decreased blood flow to the heart. Prolonged reduced blood flow can cause a heart attack (myocardial infarction or [place]). This condition may also be called coronary heart disease. Because CAD is the leading cause of in men, it is important to understand what causes this condition and how it is treated. What are the causes? CAD is most often caused by atherosclerosis. This is the buildup of fat and cholesterol (plaque) on the inside of the arteries. Over time, the plaque may narrow or block the artery, reducing blood flow to the heart. Plaque can also become weak and break off within a coronary artery and cause a sudden blockage. Other less common causes of CAD include: ??? An embolism or blood clot in a coronary artery. ??? A tearing of the artery (spontaneous coronary artery dissection). ??? An aneurysm. ??? Inflammation (vasculitis) in the artery wall. What increases the risk? The following factors may make you more likely to develop this condition: ??? Age. Men over age 45 are at a greater risk of CAD. ??? Family history of CAD. ??? Gender. Men often develop CAD earlier in life than women. ??? High blood pressure (hypertension). ??? Diabetes. ??? High cholesterol levels. ??? Tobacco use. ??? Excessive alcohol use. ??? Lack of exercise. ??? A diet high in saturated and trans fats, such as fried food and processed meat. Other possible risk factors include: ??? High stress levels. ??? Depression. ??? Obesity. ??? Sleep apnea. What are the signs or symptoms? Many people do not have any symptoms during the early stages of CAD. As the condition progresses, symptoms may include: ??? Chest pain (angina). The pain can: ? Feel like a crushing or squeezing, or a tightness, pressure, fullness, or heaviness in the chest. ? Last more than a few minutes or can stop and recur. The pain tends to get worse with exercise or stress and to fade with rest. ??? Pain in the arms, neck, jaw, or back. ??? Unexplained heartburn or indigestion. ??? Shortness of breath. ??? Nausea or vomiting. ??? Sudden light-headedness. ??? Sudden cold sweats. ??? Fluttering or fast heartbeat (palpitations). How is this diagnosed? This condition is diagnosed based on: ??? Your family and medical history. ??? A physical exam. ??? Tests, including: ? A test to check the electrical signals in your heart (electrocardiogram). ? Exercise stress test. This looks for signs of blockage when the heart is stressed with exercise, such as running on a treadmill. ? Pharmacologic stress test. This test looks for signs of blockage when the heart is being stressed with a medicine. ? Blood tests. ? Coronary angiogram. This is a procedure to look at the coronary arteries to see if there is any blockage. During this test, a dye is injected into your arteries so they appear on an X-ray. ? A test that uses sound waves to take a picture of your heart (echocardiogram). ? Chest X-ray. How is this treated? This condition may be treated by: ??? Healthy lifestyle changes to reduce risk factors. ??? Medicines such as: ? Antiplatelet medicines and blood-thinning medicines, such as aspirin. These help to prevent blood clots. ? Nitroglycerin. ? Blood pressure medicines. ? Cholesterol-lowering medicine. ??? Coronary angioplasty and stenting. During this procedure, a thin, flexible tube is inserted through a blood vessel and into a blocked artery. A balloon or similar device on the end of the tube is inflated to open up the artery. In some cases, a small, mesh tube (stent) is inserted into the artery to keep it open. ??? Coronary artery bypass surgery. During this surgery, veins or arteries from other parts of the body are used to create a bypass around the blockage and allow blood to reach your heart. Follow these instructions at home: Medicines ??? Take [id number] and prescription medicines only as told by your health care provider. ??? Do not take the following medicines unless your health care provider approves: ? NSAIDs, such as ibuprofen, naproxen, or celecoxib. ? Vitamin supplements that contain vitamin A, vitamin E, or both. Lifestyle ??? Follow an exercise program approved by your health care provider. Aim for 150 minutes of moderate exercise or 75 minutes of vigorous exercise each week. ??? Maintain a healthy weight or lose weight as approved by your health care provider. ??? Rest when you are tired. ??? Learn to manage stress or try to limit your stress. Ask your health care provider for suggestions if you need help. ??? Get screened for depression and seek treatment, if needed. ??? Do not use any products that contain nicotine or tobacco, such as cigarettes and e-cigarettes. If you need help quitting, ask your health care provider. ??? Do not use illegal drugs. Eating and drinking ??? Follow a heart-healthy diet. A dietitian can help educate you about healthy food options and changes. In general, eat plenty of fruits and vegetables, lean meats, and whole grains. ??? Avoid foods high in: ? Sugar. ? Salt (sodium). ? Saturated fat, such as processed or fatty meat. ? Trans fat, such as fried foods. ??? Use healthy cooking methods such as roasting, grilling, broiling, baking, poaching, steaming, or stir-frying. ??? If you drink alcohol, and your health care provider approves, limit your alcohol intake to no more than 2 drinks per day. One drink equals 12 ounces of beer, 5 ounces of wine, or 1? ounces of hard liquor. General instructions ??? Manage any other health conditions, such as hypertension and diabetes. These conditions affect your heart. ??? Your health care provider may ask you to monitor your blood pressure. Ideally, your blood pressure should be below 130/80. ??? Keep all follow-up visits as told by your health care provider. This is important. Get help right away if: ??? You have pain in your chest, neck, arm, jaw, stomach, or back that: ? Lasts more than a few minutes. ? Is recurring. ? Is not relieved by taking medicine under your tongue (sublingualnitroglycerin). ??? You have too much (profuse) sweating without cause. ??? You have unexplained: ? Heartburn or indigestion. ? Shortness of breath or difficulty breathing. ? Fluttering or fast heartbeat (palpitations). ? Nausea or vomiting. ? Fatigue. ? Feelings of nervousness or anxiety. ? Weakness. ? Diarrhea. ??? You have sudden light-headedness or dizziness. ??? You faint. ??? You feel like hurting yourself or think about taking your own life. These symptoms may represent a serious problem that is an emergency. Do not wait to see if the symptoms will go away. Get medical help right away. Call your local emergency services (911 in the [place] Do not drive yourself to the hospital. Summary ??? Coronary artery disease (CAD) is a process in which the arteries that lead to the heart (coronary arteries) become narrow or blocked. The narrowing or blockage can lead to a heart attack. ??? Many people do not have any symptoms during the early stages of CAD. This is called silent CAD. ??? CAD can be treated with lifestyle changes, medicines, surgery, or a combination of these treatments. This information is not intended to replace advice given to you by your health care provider. Make sure you discuss any questions you have with your health care provider. Document Released: 10/20/2014 Document Revised: 03/15/2017 Document Reviewed: 03/15/2017 [employer] Interactive Patient Education ? 2019 [employer]. Nutrition Heart-Healthy Eating Plan Many factors influence your heart health, including eating and exercise habits. Heart (coronary) risk increases with abnormal blood fat (lipid) levels. Heart-healthy meal planning includes limiting unhealthy fats, increasing healthy fats, and making other small dietary changes. This includes maintaining a healthy body weight to help keep lipid levels within a normal range. What is my plan? Your health care provider recommends that you: ??? Get no more than % of the total calories in your daily diet from fat. ??? Limit your intake of saturated fat to less than % of your total calories each day. ??? Limit the amount of cholesterol in your diet to less than mg per day. What types of fat should I choose? Choose healthy fats more often. Choose monounsaturated and polyunsaturated fats, such as olive oil and canola oil, flaxseeds, walnuts, almonds, and seeds. ??? Eat more omega-3 fats. Good choices include salmon, mackerel, sardines, tuna, flaxseed oil, and ground flaxseeds. Aim to eat fish at least two times each week. ??? Limit saturated fats. Saturated fats are primarily found in animal products, such as meats, butter, and cream. Plant sources of saturated fats include palm oil, palm kernel oil, and coconut oil. ??? Avoid foods with partially hydrogenated oils in them. These contain trans fats. Examples of foods that contain trans fats are stick margarine, some tub margarines, cookies, crackers, and other baked goods. What general guidelines do I need to follow? Check food labels carefully to identify foods with trans fats or high amounts of saturated fat. ??? Fill one half of your plate with vegetables and green salads. Eat 4?5 servings of vegetables per day. A serving of vegetables equals 1 cup of raw leafy vegetables, ? cup of raw or cooked cut-up vegetables, or ? cup of vegetable juice. ??? Fill one fourth of your plate with whole grains. Look for the word whole as the first word in the ingredient list. ??? Fill one fourth of your plate with lean protein foods. ??? Eat 4?5 servings of fruit per day. A serving of fruit equals one medium whole fruit, ? cup of dried fruit, ? cup of fresh, frozen, or canned fruit, or ? cup of 100% fruit juice. ??? Eat more foods that contain soluble fiber. Examples of foods that contain this type of fiber are apples, broccoli, carrots, beans, peas, and barley. Aim to get 20?30 g of fiber per day. ??? Eat more home-cooked food and less restaurant, buffet, and fast food. ??? Limit or avoid alcohol. ??? Limit foods that are high in starch and sugar. ??? Avoid fried foods. ??? Cook foods by using methods other than frying. Baking, boiling, grilling, and broiling are all great options. Other fat-reducing suggestions include: ? Removing the skin from poultry. ? Removing all visible fats from meats. ? Skimming the fat off of stews, soups, and gravies before serving them. ? Steaming vegetables in water or broth. ??? Lose weight if you are overweight. Losing just 5?10% of your initial body weight can help your overall health and prevent diseases such as diabetes and heart disease. ??? Increase your consumption of nuts, legumes, and seeds to 4?5 servings per week. One serving of dried beans or legumes equals ? cup after being cooked, one serving of nuts equals 1? ounces, and one serving of seeds equals ? ounce or 1 tablespoon. ??? You may need to monitor your salt (sodium) intake, especially if you have high blood pressure. Talk with your health care provider or dietitian to get more information about reducing sodium. What foods can I eat? Grains Breads, including Citizen Of [place], white, cl, wheat, raisin, rye, oatmeal, and Indonesian. Tortillas that are neither fried nor made with lard or trans fat. Low-fat rolls, including hotdog and hamburger buns and Kitt[place] muffins. Biscuits. Muffins. Waffles. Pancakes. Light popcorn. Whole-grain cereals. Flatbread. Lizzie toast. Pretzels. Breadsticks. Rusks. Low-fat snacks and crackers, including oyster, saltine, matzo, page, animal, and rye. Rice and pasta, including brown rice and those that are made with whole wheat. Vegetables All vegetables. Fruits All fruits, but limit coconut. Meats and Other Protein Sources Lean, well-trimmed beef, veal, pork, and bonilla. Chicken and turkey without skin. All fish and shellfish. Wild duck, rabbit, pheasant, and venison. Egg whites or low-cholesterol egg substitutes. Dried beans, peas, lentils, and tofu.?Seeds and most nuts. Dairy Low-fat or nonfat cheeses, including ricotta, string, and mozzarella. Skim or 1% milk that is liquid, powdered, or evaporated. Buttermilk that is made with low-fat milk. Nonfat or low-fat yogurt. Beverages Mineral water. Diet carbonated beverages. Sweets and Desserts Sherbets and fruit ices. Honey, jam, marmalade, jelly, and syrups. Meringues and gelatins. Pure sugar candy, such as hard candy, jelly beans, gumdrops, mints, marshmallows, and small amounts of dark chocolate. Gwyn food cake. Eat all sweets and desserts in moderation. Fats and Oils Nonhydrogenated (trans-free) margarines. Vegetable oils, including soybean, sesame, sunflower, olive, peanut, safflower, corn, canola, and cottonseed. Salad dressings or mayonnaise that are made with a vegetable oil. Limit added fats and oils that you use for cooking, baking, salads, and as spreads. Other Wayne powder. Coffee and tea. All seasonings and condiments. The items listed above may not be a complete list of recommended foods or beverages. Contact your dietitian for more options. What foods are not recommended? Grains Breads that are made with saturated or trans fats, oils, or whole milk. Croissants. Butter rolls. Cheese breads. Sweet rolls. Donuts. Buttered popcorn. Scales mein noodles. High-fat crackers, such as cheese or butter crackers. Meats and Other Protein Sources Fatty meats, such as hotdogs, short ribs, sausage, spareribs, petersen, ribeye roast or steak, and mutton. High-fat deli meats, such as salami and bologna. Caviar. Domestic duck and goose. Organ meats, such as kidney, liver, sweetbreads, brains, gizzard, chitterlings, and heart. Dairy Cream, sour cream, cream cheese, and creamed cottage cheese. Whole milk cheeses, including blue (oren), [place] Cristian, Brie, Teja, Icelandic, Havarti, Lebanese, cheddar, Camembert, and [place]. Whole or 2% milk that is liquid, evaporated, or condensed. Whole buttermilk. Cream sauce or high-fat cheese sauce. Yogurt that is made from whole milk. Beverages Regular sodas and drinks with added sugar. Sweets and Desserts Frosting. Pudding. Cookies. Cakes other than gwyn food cake. Candy that has milk chocolate or white chocolate, hydrogenated fat, butter, coconut, or unknown ingredients. Buttered syrups. Full-fat ice cream or ice cream drinks. Fats and Oils Gravy that has suet, meat fat, or shortening. Wayne butter, hydrogenated oils, palm oil, coconut oil, palm kernel oil. These can often be found in baked products, candy, fried foods, nondairy creamers, and whipped toppings. Solid fats and shortenings, including petersen fat, salt pork, lard, and butter. Nondairy cream substitutes, such as coffee creamers and sour cream substitutes. Salad dressings that are made of unknown oils, cheese, or sour cream. The items listed above may not be a complete list of foods and beverages to avoid. Contact your dietitian for more information. This information is not intended to replace advice given to you by your health care provider. Make sure you discuss any questions you have with your health care provider. Document Released: 01/01/2009 Document Revised: 10/12/2016 Document Reviewed: 09/16/2014 [employer] Interactive Patient Education ? 2019 [employer]. documented in this encounter Plan of Treatment Not on file documented as of this encounter Visit Diagnoses Not on filedocumented in this encounter
--- OUTSIDE RECORDS SUMMARY | 2024-09-18 07:39 | XMS_ITS | Encounter Summary ---
Author Organization [employer] Address [address] [place] [id number] Care Team Providers Care Sheriff'S Detective Name Role Phone Unavailable Primary Care Provider Unavailabl e Encounter Details Date Type Department Care Team (Late st Contact Info) Description 03/25/2019 Transcribed Document [facility] Family Medicine [address] [place] [address] ProviderZulma MD [address] [place] [address] Social History Tobacco Use Types Packs/Day Years Used Date Smoking Tobacco: Never Assessed Sex and Gender Information Value Date Recorded Sex Assigned at Male 10/03/2021 5:40 PM CDT Legal Sex Male 5:40 PM CDT Gender Identity Male 10/03/2021 5:40 PM CDT Sexual Orientation Not on file documented as of this encounter Miscellaneous Notes * [employer]ner Conversion Note - Historical ProviderMD - 03/25/2019 7:17 PM [facility] DIRECT[facility] Nursing Discharge Summary Entered On: 03/25/2019 19:18 EST Performed On: 03/25/2019 19:17 EST by RAY MORENO RN Discharge Documentation Discharge Date/Time : 03/25/2019 20:30 EST Patient Disposition, General : Discharge Discharge To : Home with ambulatory/outpatient follow-up Mode Of Departure, General Discharge : Private vehicle, Wheelchair Accompanied By, Discharge : Spouse IV Discontinued : Yes Personal Belongings With Patient : Yes Prescriptions Given to Patient : No Discharge Instructions Reviewed With, Opportunity For Questions Given : Patient, Spouse Patient Education Completed : Yes Teaching Method : Demonstration, Explanation Teaching Evaluation : Returns demonstration, Verbalizes understanding RAY MORENO RN - 03/25/2019 19:17 EST Electronically signed by Cristofer [facility] Conversion Time Buyer Cerner at 07/23/2022 9:29 AM CDT documented in this encounter Plan of Treatment Not on file documented as of this encounter Visit Diagnoses Not on filedocumented in this encounter
--- OUTSIDE RECORDS SUMMARY | 2024-09-18 07:40 | XMS_ITS | Encounter Summary ---
Author Organization [employer] Address [address] [place] [id number] Care Team Providers Care Project Control Manager Name Role Phone Unavailable Primary Care Provider Unavailabl e Encounter Details Date Type Department Care Team (Late st Contact Info) Description 08/31/2020 Transcribed Document [facility] Family Medicine [address] [place] [address] ProviderZulma MD [address] [place] [address] Social History Tobacco Use Types [...] Conversion Note - Zulma Jarquin MD - 08/31/2020 1:40 PM CDT [facility] Jodie SUE Melendez [id number] GEOVANNA HURLEY :1965 Visit Time:08/31/2020 Your Visit Summary Your Care Team Admitting Physician - ELIZA ESCOBAR MD-CAR Attending Physician - ELIZA ESCOBAR MD-CAR Primary Care Physician - JAGDISH OSUNA (REF)EREN Referring Physician - ELIZA ESCOBAR MD-CAR Your Diagnosis Abnormal result of other cardiovascular function study, Abnormal result of other cardiovascular function study Discharge Vitals Temperature 36.6 ??C Heart Rate (Monitored) 56 Respiratory Rate 11 Blood Pressure 98/56 What to do next Instructions From Your Care Team See Post Radial Cardiac Cath Patient Instruction sheet Diet after Discharge: Resume usual diet as tolerated Activity after Discharge: Rest and relax today, No strenuous activity, No lifting more than 1 pound with affected hand for 48 hours. , _ Driving Restrictions: No driving for 24 hours. Showering/Bathing: You may remove the dressing in 24 hours and shower. , No tub bathing, soaking or swimming for 3-5 days until site is healed. Medications: No changes to your current home medications., _, _ Dressing Instructions: You can remove the dressing in 24 hours., _, _ If bleeding occurs at the procedure site, please sit down, hold enough pressure to stop the bleeding, and have someone call 911. Follow-Up Appointments Follow Up with FOUZIA BELLAMY When 09/12/2020 12:30 PM EDT Comments Appointment has been made Where: [address] [place] [address] [place] [address]- Business (1) Medications What How Much When Instructions Next Dose meloxicam 15 Milligram(s) Oral Every Day metoprolol (Metoprolol Tartrate) 12.5 Milligram(s) Oral Two Times A Day albuterol (Ventolin HFA 90 mcg/ inh inhalation aerosol) Inhalation Four Times A Day aspirin (aspirin 81 mg oral tablet) 1 Tablet(s) Oral Every Day atorvastatin (atorvastatin 40 mg oral tablet) Oral Every Day DULoxetine 60 Milligram(s) Oral Every Day fluticasone (Flovent HFA 110 mcg/ inh inhalation aerosol) 2 Puff(s) Inhalation Every Day gabapentin (gabapentin 300 mg oral capsule) 1 Capsule(s) Oral Two Times A Day lisinopril (lisinopril 5 mg oral tablet) 1 Tablet(s) Oral Every Day ranolazine (Ranexa 500 mg oral tablet, extended release) Oral Two Times A Day tamsulosin 0.4 Milligram(s) Oral Every Day traMADol (traMADol 50 mg oral tablet) 1 Tablet(s) Oral Three Times A Day as needed for for pain Take your medications faithfully. Do NOT skip medication. Do NOT stop taking medications without the direction of a physician. Carry a list of your medications with you at all times, and take this medication list with you to your first follow up visit. Report any side effects. Avoid herbal remedies unless discussed with your physician. As part of your treatment plan, your physician may have prescribed a limited course of a controlled substance. This medication may be given to help people with moderate or severe pain or for other medical conditions, but there are risks involved with treatment. Common side effects may include nausea, constipation, drowsiness, sweating, itching, dry mouth, and rash. More serious side effects may include cognitive and motor impairment, like problems with thinking, concentrating, alertness, and movement (e.g. slowed reflexes), and driving and operating heavy machinery can be dangerous. It is important for you to talk to your physician if you have these side effects or questions. These controlled substances can produce physical dependence and be habit-forming if taken for an extended period of time, which means that the body has gotten used to them and may experience withdrawal symptoms if they are abruptly stopped. Withdrawal symptoms can include runny nose, sweating, goose bumps, diarrhea, abdominal cramping, rapid heartbeat, difficulty sleeping, and nervousness. Please dispose of unused and medications per your retail pharmacy guidance. Allergies No Known Allergies Immunizations This Visit No Immunizations Found Education Materials Steps to Quit Smoking Smoking tobacco is [...] a prescription and some you can purchase gmwa-njv-kkhygvq. Medicines may have nicotine in them to [...] for support and encouragement. Call telephone quitlines (2-307-XNLO-NOW), reach out to support groups, or work [...] symptoms. These symptoms are usually most noticeable 2???3 days after quitting, but they usually do not last for more than 2???3 weeks. You may experience these symptoms: ??? [...] Week 3 and afterward After the first 2???3 weeks of quitting, you may start to [...] provider. Document Revised: 12/18/2019 Document Reviewed: 06/13/2019 [employer] Patient Education ?? 2020 [employer]. Coronary Angiogram A coronary angiogram is an [...] including vitamins, herbs, eye drops, creams, and jrhk-pst-szwwkiq medicines. ??? Any problems you or family [...] Up to 2 hours before the procedure ??? you may continue to drink clear liquids, such as water, clear fruit juice, black coffee, and plain tea. Eating and drinking restrictions Follow instructions from your health care provider about eating and drinking, which may include: ??? 8 hours before the procedure ??? stop eating heavy meals or foods, such as meat, fried foods, or fatty foods. ??? 6 hours before the procedure ??? stop eating light meals or foods, such as toast or cereal. ??? 6 hours before the procedure ??? stop drinking milk or drinks that contain milk. ??? 2 hours before the procedure ??? stop drinking clear liquids. Medicines Ask your [...] do not normally take it. ??? Taking euak-hlu-ukuinss medicines, vitamins, herbs, and supplements. General instructions [...] provider. Document Revised: 10/15/2019 Document Reviewed: 10/15/2019 [employer] Patient Education ?? 2020 [employer] Radial Site Care This sheet gives you [...] these instructions at home: Medicines ??? Take fcvj-bgy-jucsagk and prescription medicines only as told by your health care provider. Insertion site care ??? Follow instructions from your health care provider about how to take care of your insertion site. Make sure you: ? Wash your hands with soap and water before you change your bandage (dressing). If soap and water are not available, use hand body fitter. ? Change your dressing as told by [...] care provider approves. ??? You may shower 24???48 hours after the procedure, or as directed [...] provider. Document Revised: 04/30/2018 Document Reviewed: 04/30/2018 [employer] Patient Education ?? 2020 [employer]. Moderate Conscious Sedation, Adult, Care After These [...] you are awake and alert. ??? Take lpaz-iux-ltnrbuk and prescription medicines only as told by [...] 03/07/2018 Document Reviewed: 07/14/2016 [employer] Patient Education ?? 2020 [employer]. It???s Cold and Flu Season ??? How [...] to thoroughly wash your hands, use hand body fitter. While handwashing is best, hand body fitter helps to reduce the spread of germs when you are out and about. Have hand body fitter in several locations so you can always [...] keep people from also getting sick. Don???t [place] It! Sneezing this time of year is [...] a PCP near you, please visit [employer]PER[employer] [email or web address]. June 12, 2019 FAQ ??? Patient COVID-19 testing Why do I need [...] patients who test positive for COVID-19. If I???m a patient, should I wear a mask? [...] through the local health department and the [place] Department for Public Health. Those organizations are [...] need during a recommended self-quarantine period. The patient???s name is not revealed to anyone during the contact tracing interviews, even if a contact asks. Who would be considered a ???close contact?? ? According to the CDC, a close [...] a face covering and maintain social distancing ??? at least 6 feet from others at [...] and need to call 911, notify the trimming machine set up operator that you have, or think you might [...] others. You should stay in a specific ???sick room?? if possible, and away from other people [...] (including before you enter a health care provider???s office). ??? If you are caring for [...] clean your hands with an alcohol-based hand body fitter that contains at least 60% alcohol. Clean your hands often. ??? Wash hands: Wash your hands often with soap and water for at least 20 seconds when visibly dirty. This is especially important after blowing your nose, coughing or sneezing, and going to the bathroom, and before eating or preparing food. ??? Hand body fitter: Use an alcohol-based hand body fitter with at least 60% alcohol, covering all [...] and water or put them in the corporate strategy associate. Clean all high-touch surfaces every day. Clean high-touch surfaces in your isolation area (???sick room?? and bathroom) every day; let a caregiver clean and disinfect high-touch surfaces in other areas of the home. ??? Clean and disinfect: Routinely clean high-touch surfaces in your ???sick room?? and bathroom. Let someone else clean and disinfect surfaces in common areas, but not your bedroom and bathroom. ? If a caregiver or other person needs to clean and disinfect a sick person???s bedroom or bathroom, they should do so [...] or body fluids on them. ??? Household criminal defense lawyer and disinfectants: Clean the area or item with soap and water or another detergent if it is dirty. Then, use a household disinfectant. ??? Be sure to follow the instructions on the label to ensure safe and effective use of the product. Many products recommend keeping the surface wet for several minutes to ensure germs are killed. Many also recommend precautions such as wearing gloves and making sure you have good ventilation during use of the product. ??? Most EPA-registered household disinfectants should be effective. A full list of disinfectants can be found here: https://www.epa.gov/pesticide-registration/voaz-j-wqzioeejhfraf-iub-klbwhgz-rs rs-cov-2 Emergency Awareness and Preventative Care STROKE is an EMERGENCY Every Minute Counts Act FAST and Check for these signs: FACE Does the face look uneven? ARM Does one arm drift down? SPEECH Does their speech sound strange? TIME Call at any sign of stroke Stroke Risk Factors Atrial Fibrillation (irregular heartbeat) Diabetes Family history of stroke Heart Disease Heavy alcohol use High Blood Pressure High Cholesterol Physical inactivity and obesity Smoking Cigarette Smoking The facts are clear, cigarette smoking will shorten your life. Smoking can cause many illnesses along the way. As a healthcare provider, we recommend that you stop smoking. Assistance with quitting is available by contacting 3-910-UAKY-NOW. This is a free resource providing counseling, support, and referral. Or you may contact your personal physician. National Suicide Prevention Lifeline: The National Suicide Prevention Lifeline is a national network of local crisis centers that provides free and confidential emotional support to people in suicidal crisis or emotional distress 24 hours a day, 7 days a week. Don't Wait! Stop a Heart Attack Before it Starts What is a heart attack? A heart attack is damage or to a part of the heart from severely decreased or lack of blood flow to the heart. Over time, arteries can become narrow from the buildup of fat and cholesterol, which is called plaque. The plaque can rupture causing a blood clot to form. When the blood clot forms, the artery can become severely narrowed or completely blocked, causing a heart attack. Heart attack is the leading cause of in the [place]. 85% of muscle damage occurs within the first 2 hours. Delay in the recognition of heart attack symptoms increases the chances of . Know the early symptoms of a heart attack: Nausea Feeling of fullness in chest Jaw Pain Pain that travels down one or both arms Fatigue/being tired Anxiety Back Pain Chest pressure, squeezing, or discomfort Shortness of breath Sweating, or a cold sweat Feeling of impending doom There are unusual signs of a heart attack, too! Women, the elderly, and diabetics may present with atypical symptoms: Fainting/dizziness Weakness Confusion Risk Factors for a Heart Attack Some heart disease risk factors, such as age and family history, cannot be changed. Others, like smoking and lack of exercise, can be changed. Smoking High Cholesterol High Blood Pressure Family History Obesity Age Gender (Males are at higher risk) Lack of Exercise Diabetes Diet Stress Excessive Alcohol Intake If you or someone you know is experiencing the signs and symptoms of a heart attack, DON???T DELAY. Call immediately and seek help. If someone collapses, perform CPR! Do not attempt to drive if you are having symptoms of heart attack. Hands-Only CPR Why Hands-Only CPR? Hands-Only CPR has been shown to be as effective as conventional CPR for cardiac arrests that occur outside of a hospital. Survival depends on immediately receiving CPR from someone nearby. How do you perform Hands-Only CPR? There are two easy steps: Call if you see a teen or adult collapse Push hard and fast in the center of the chest at a beat of 100 beats per minute. Save a life! 4 WAYS TO GET AHEAD OF SEPSIS SEPSIS is a MEDICAL EMERGENCY. Time matters! Infections put you and your family at risk for a life-threatening condition called sepsis. Sepsis is the body's extreme response to an infection. It is life-threatening, and without timely treatment, sepsis can rapidly lead to tissue damage, organ failure, and . Sepsis happens when an infection you already have-in your skin, lungs, urinary tract or somewhere else-triggers a chain reaction throughout your body. 1 PREVENT INFECTIONS Take good care of chronic conditions. Talk to your doctor about getting the recommended vaccines. 2 PRACTICE GOOD HYGIENE Wash your hands frequently. Keep cuts or open sores clean and covered until they are healed. 3 KNOW THE SYMPTOMS Confusion or disorientation Shortness of breath High heart rate Fever, shivering, or feeling very cold Extreme pain or discomfort Clammy or sweaty skin 4 ACT FAST Get medical care IMMEDIATELY if you suspect sepsis or if you have an infection that is not getting better or is getting worse. To learn more about sepsis and how to prevent infections, visit www.cdc.gov/sepsis. Test Results Laboratory or Other Results This Visit (last charted value for your 08/31/2020 visit) Hematology 08/31/2020 9:30 AM Platelet Count: 217 K/uL -- Normal range between ( 163 and 369 ) Patient Name:GEOVANNA HURLEY GREALD I have received and understand this information and was given the opportunity to ask questions. Patient/Galvanizer Name: Patient/Galvanizer Signature: Relationship to Patient: Clinician/Hospital Galvanizer Signature: Date: documented in this encounter Plan of Treatment Not on file documented as of this encounter Visit Diagnoses Not on filedocumented in this encounter
--- OUTSIDE RECORDS SUMMARY | 2024-09-18 07:40 | XMS_ITS | Encounter Summary ---
Author Organization [employer] Address [address] [place] [address] Care Team Providers Care Program Development Manager Name Role Phone Unavailable Primary Care Provider Unavailabl e Encounter Details Date Type Department Care Team (Late st Contact Info) Description 03/25/2019 Transcribed Document [facility] [place] [address] [place] [address] ProviderZulma MD [address] [place] [address] Social History Tobacco Use Types [...] Note - Zulma Jarquin MD - 03/25/2019 7:18 PM DOCTOR ASSISTANT [facility] Jodie SUE Melendez [id number] GEOVANNA HURLEY :1965 Visit Time:03/25/2019 Your Visit Summary Your Care Team Admitting Physician - ELIZA ESCOBAR MD-CAR Attending Physician - ELIZA ESCOBAR MD-CAR Primary Care Physician - JAGDISH OSUNA (REF)EREN Referring Physician - ELIZA ESCOBAR MD-CAR Your Diagnosis Atherosclerotic heart disease of [place] coronary artery without angina pectoris, Atherosclerotic heart disease of [place] coronary artery without angina pectoris Discharge Vitals Heart Rate (Monitored) 54 Respiratory Rate 13 Blood Pressure 109/57 What to do next Instructions From Your Care Team Diet after Discharge: Resume usual diet as tolerated Activity after Discharge: Rest and relax today, No strenuous activity, No lifting/pushing/pulling more than 10 pounds for 1 week., _ Driving Restrictions: No driving for 24 hours. Showering/Bathing: You may remove the dressing in 24 hours and shower. , No tub bathing, soaking or swimming for 3-5 days until site is healed. Medications: No changes to your current home medications., _, _ Dressing Instructions: You can remove the dressing in 24 hours., _, _ Follow-Up Appointments Follow Up with FOUZIA BELLAMY MD When Comments Follow-up as instructed Where: [address] [place] [address] [place] [address]- Medications What How Much When Instructions Next Dose atorvastatin (atorvastatin 40 mg oral tablet) Oral Every Day albuterol (Ventolin HFA 90 mcg/ inh inhalation aerosol) Inhalation Four Times A Day aspirin (aspirin 81 mg oral tablet) 1 Tablet(s) Oral Every Day fluticasone (Flovent HFA 110 mcg/ inh inhalation aerosol) 2 Puff(s) Inhalation Every Day gabapentin (gabapentin 300 mg oral capsule) 1 Capsule(s) Oral Two Times A Day lisinopril (lisinopril 5 mg oral tablet) 1 Tablet(s) Oral Every Day meloxicam (meloxicam 7.5 mg oral tablet) Oral Every Day metoprolol (Metoprolol Succinate ER 25 mg oral tablet, extended release) 1 Tablet(s) Oral Every Day metoprolol (Metoprolol Tartrate 25 mg oral tablet) 0.5 Tablet(s) Oral Two Times A Day ranolazine (Ranexa 500 mg oral tablet, extended release) Oral Two Times A Day traMADol (traMADol 50 mg oral tablet) [...] Materials Steps to Quit Smoking Smoking tobacco can [...] period of time. Research shows that quitting ???cold turkey?? is more successful than gradually quitting. ??? [...] but they usually do not last beyond 2???3 weeks. Changes or symptoms that you might [...] ??? Difficulty sleeping (insomnia). After the first 2???3 weeks of quitting, [...] 03/19/2002 Document Revised: 10/29/2017 Document Reviewed: 08/09/2015 [employer] Interactive Patient Education ?? 2019 [employer] Health Risks of Smoking Smoking cigarettes [...] methods. Where to find more information ??? [place] [employer] Association: www.lung.org ??? [place] [employer] Society: www.cancer.org Summary ??? Smoking cigarettes [...] 05/02/2005 Document Revised: 03/29/2017 Document Reviewed: 03/29/2017 [employer] Interactive Patient Education ?? 2019 [employer] Moderate Conscious Sedation, Adult, Care After These [...] you are awake and alert. ??? Take dxsw-cwf-fouwnij and prescription medicines only as told by [...] 01/13/2014 Document Revised: 08/27/2016 Document Reviewed: 07/14/2016 [employer] Interactive Patient Education ?? 2019 [employer]. Groin Site Care Refer to this sheet [...] questions after your procedure. HOME CARE INSTRUCTIONS ??? You may shower 24 hours after the procedure. Remove the bandage (dressing ) and gently wash the site with plain soap and water. Gently pat the site dry. ??? Do not apply powder or lotion to the site. ??? Do not sit in a bathtub, swimming pool, or whirlpool for 5 to 7 days. ??? No bending, squatting, or lifting anything over 10 pounds (4.5 kg) as directed by your caregiver. ??? Inspect the site at least twice daily. ??? Do not drive home if you are discharged the same day of the procedure. Have someone else drive you. ??? You may drive 24 hours after the procedure unless otherwise instructed by your caregiver. What to expect: ??? Any bruising will usually fade within 1 to 2 weeks. ??? Blood that collects in the tissue (hematoma ) may be painful to the touch. It should usually decrease in size and tenderness within 1 to 2 weeks. SEEK IMMEDIATE MEDICAL CARE IF: ??? You have unusual pain at the groin site or down the affected leg. ??? You have redness, warmth, swelling, or pain at the groin site. ??? You have drainage (other than a small amount of blood on the dressing). ??? You have chills. ??? You have a fever or persistent symptoms for more than 72 hours. ??? You have a fever and your symptoms suddenly get worse. ??? Your leg becomes pale, cool, tingly, or numb. ??? You have heavy bleeding from the site. Hold pressure on the site. Document Released: 04/27/2011 Document Revised: 06/16/2012 Document Reviewed: 04/27/2011 ExitCare?? Patient Information ??2013 [employer]. Angiogram, Care After This sheet gives you [...] and water are not available, use hand elevator repairer helper. ? Change your dressing as told by [...] You may shower 24???48 hours after the procedure or as told [...] by your health care provider, usually for 1???2 days. ??? Do not lift anything that [...] contrast dye from your body. ??? Take jgyo-bbp-ixiwulu and prescription medicines only as told by [...] okay to do so. You may shower 24???48 hours after the procedure or as told [...] 10/11/2005 Document Revised: 02/27/2017 Document Reviewed: 02/27/2017 [employer] Interactive Patient Education ?? 2019 [employer] Coronary Artery Disease, Male Coronary artery disease (CAD) is a condition in which the arteries that lead to the heart (coronary arteries) become narrow or blocked. The narrowing or blockage can lead to decreased blood flow to the heart. Prolonged reduced blood flow can cause a heart attack (myocardial infarction or AK). This condition may also be called coronary [...] these instructions at home: Medicines ??? Take vwiz-ubb-yuzjzba and prescription medicines only as told by [...] of beer, 5 ounces of wine, or 1?? ounces of hard liquor. General instructions ??? [...] 10/20/2014 Document Revised: 03/15/2017 Document Reviewed: 03/15/2017 [employer] Interactive Patient Education ?? 2019 [employer]. Coronary Angiogram A coronary angiogram is an [...] including vitamins, herbs, eye drops, creams, and udce-ynn-qkjaqgf medicines. ??? Any problems you or family [...] procedure ??? stop eating heavy meals or foods such as meat, fried foods, or fatty foods. ??? 6 hours before the procedure ??? stop eating light meals or foods, such as toast or cereal. ??? 2 hours before the procedure ??? stop drinking clear liquids. General instructions ??? [...] 09/29/2003 Document Revised: 01/04/2017 Document Reviewed: 01/04/2017 [employer] Interactive Patient Education ?? 2017 [employer]. Heart-Healthy Eating Plan Many factors influence your [...] plate with vegetables and green salads. Eat 4???5 servings of vegetables per day. A serving of vegetables equals 1 cup of raw leafy vegetables, ?? cup of raw or cooked cut-up vegetables, or ?? cup of vegetable juice. ??? Fill one fourth of your plate with whole grains. Look for the word whole as the first word in the ingredient list. ??? Fill one fourth of your plate with lean protein foods. ??? Eat 4???5 servings of fruit per day. A serving of fruit equals one medium whole fruit, ?? cup of dried fruit, ?? cup of fresh, frozen, or canned fruit, or ?? cup of 100% fruit juice. ??? Eat more foods that contain soluble fiber. Examples of foods that contain this type of fiber are apples, broccoli, carrots, beans, peas, and barley. Aim to get 20???30 g of fiber per day. ??? Eat [...] weight if you are overweight. Losing just 5???10% of your initial body weight can help your overall health and prevent diseases such as diabetes and heart disease. ??? Increase your consumption of nuts, legumes, and seeds to 4???5 servings per week. One serving of dried beans or legumes equals ?? cup after being cooked, one serving of nuts equals 1?? ounces, and one serving of seeds equals ?? ounce or 1 tablespoon. ??? You may need to monitor your salt (sodium) intake, especially if you have high blood pressure. Talk with your health care provider or dietitian to get more information about reducing sodium. What foods can I eat? Grains Breads, including Maori, white, cl, wheat, raisin, rye, oatmeal, and Telugu. Tortillas that are neither fried nor made with lard or trans fat. Low-fat rolls, including hotdog and hamburger buns and [place] muffins. Biscuits. Muffins. Waffles. Pancakes. Light popcorn. Whole-grain cereals. Flatbread. [place] toast. Pretzels. Breadsticks. Rusks. Low-fat snacks and [...] egg substitutes. Dried beans, peas, lentils, and tofu. Seeds and most nuts. Dairy Low-fat or nonfat [...] cooking, baking, salads, and as spreads. Other [place] powder. Coffee and tea. All seasonings and [...] cheese. Whole milk cheeses, including blue (oren), [place] Cristian, Brie, Teja, Tristanian, Havarti, Paraguayan, cheddar, Camembert, and Apache. Whole or 2% milk that is liquid, [...] that has suet, meat fat, or shortening. [place] butter, hydrogenated oils, palm oil, coconut oil, [...] 01/01/2009 Document Revised: 10/12/2016 Document Reviewed: 09/16/2014 [employer] Interactive Patient Education ?? 2019 [employer]. Emergency Awareness and Preventative Care STROKE is [...] Assistance with quitting is available by contacting 6-889-TPUJ-NOW. This is a free resource providing counseling, [...] This Visit (last charted value for your 03/25/2019 visit) Hematology 03/25/2019 10:23 AM Hemoglobin POC: 14.3 Gram/dL -- Normal range between ( 12.0 and 17.0 ) Hematocrit POC: 42.0 % -- Normal range between ( 38.0 and 51.0 ) General Chemistry 03/25/2019 10:23 AM eGFR : 108 mL/min/1.73m2 eGFR NonAfrican: 89 mL/min/1.73m2 Sodium POC: 142 mmol/L -- Normal range between ( 138 and 146 ) Ca Ioniz POC: 1.30 mmol/L -- Normal range between ( 1.12 and 1.32 ) Potassium POC: 3.7 mmol/L -- Normal range between ( 3.5 and 4.9 ) Creatinine POC: 0.9 mg/dL -- Normal range between ( 0.6 and 1.3 ) BUN POC: 16 mg/dL -- Normal range between ( 8 and 26 ) CO2 POC: 30.0 mmol/L -- Normal range between ( 24.0 and 29.0 ) Chloride POC: 103 mmol/L -- Normal range between ( 98 and 109 ) Glucose POC: 91 mg/dL -- Normal range between ( 70 and 105 ) Anion Gap POC: 14.0 mmol/L -- Normal range between ( 10.0 and 20.0 ) Patient Name:GEOVANNA HURLEY I have received and understand this information and was given the opportunity to ask questions. Patient/Rehab Office Coordinator Name: Patient/Rehab Office Coordinator Signature: Relationship to Patient: Clinician/Hospital Rehab Office Coordinator Signature: Date: Electronically signed by Cristofer, [facility] Conversion Letterpress Printing Machinist Aries at 07/23/2022 9:20 AM CDT documented in this encounter Plan of Treatment Not on file documented as of this encounter Visit Diagnoses Not on filedocumented in this encounter
--- OUTSIDE RECORDS SUMMARY | 2024-09-18 07:40 | XMS_ITS | Encounter Summary ---
Author Organization [employer] Address [address] [place] [address] Care Team Providers Care Plastics Fabricator Name Role Phone Unavailable Primary Care Provider Unavailabl e Encounter Details Date Type Department Care Team (Late st Contact Info) Description 03/25/2019 Transcribed Document [facility] [place] Medicine [address] [place] [address] ProviderZulma MD [address] [place] [address] Social History Tobacco Use Types [...] Conversion Note - Historical ProviderMD - 03/25/2019 10:43 AM SERVICES TECH Pre Procedure Adult Entered On: 03/25/2019 10:50 EST Performed On: 03/25/2019 10:43 EST by RAY MORENO RN Height and Weight, Clinical Dosing Height Source : Measured Height Entry Format : [place] Height, Feet : 6 ft(Converted to: 183 cm, 72 Inch) Height, Inches : 1 Inch(Converted to: 0 ft 1 Inch, 2.54 cm) Clinical Height : 185.42 cm Weight Source : Standing scale Weight Entry Format : [place] Clinical Dosing Weight : 84.55 kg Weight, Pounds : 186 lb Weight, Ounces : 0 oz Body Surface Area (BSA) : 2.09 m2 Body Mass Index : 24.6 kg/m2 (HI) Davis Body Weight : 79 kg RAY MORENO RN - 03/25/2019 10:43 EST Health Histories Smoking Status : 10 or more cigarettes (1/2 pack or more)/day in last 30 days Smokeless Tobacco Status : Never Desires Tobacco Cessation Medication : Yes RAY MORENO RN - 03/25/2019 10:43 EST Social History (As Of: 03/25/2019 10:50:10 EST) Tobacco: Smoking Status Current every day smoker. (Last Updated: 07/19/2016 11:17:22 EDT by RAMEZ TURCIOS RN) Alcohol: Alcohol Use History No. (Last Updated: 07/19/2016 20:06:02 EDT by ISIS MURPHY RN) Substance Abuse: Drug Use Hx: No. Use in Last 12 Months: No. (Last Updated: 07/19/2016 20:06:13 EDT by ISIS MURPHY RN) Home/Environment: Lives with Spouse. Living situation: Home/Independent. (Last Updated: 07/19/2016 13:37:14 EDT by LILIANA GARCÍA PA-C) Infectious Disease History Infectious Disease History : Chicken pox/Shingles Fever/Chills Last 48 Hours : No Travel To Regions with Travel Advisories : No Travel Outside [place] Within Last 30 Days : No Contact With Traveler to Advisory Region : No Tuberculosis Symptoms : None RAY MORENO RN - 03/25/2019 10:43 EST Anesthesia/Transfusion History Family History of Anesthesia Reaction : No prior transfusion(s) Blood Transfusion Acceptable to Patient : Yes Transfusion History : Prior anesthesia without reaction Family History of Anesthesia Reaction : None RAY MORENO RN - 03/25/2019 10:43 EST Functional Assessment Living Situation : Home Patient Lives With : Spouse Current Home Treatments : None RAY MORENO RN - 03/25/2019 10:43 EST [place] Suicide Severity Rating Scale (C-SSRS) CSSRS Past Month Wish to be : No CSSRS Past Month Suicidal Thoughts : No CSSRS Lifetime Suicide Behavior : No Suicide Severity Rating Score : 0 Suicide Severity Rating : No Additional Care Required at this time RAY MORENO RN - 03/25/2019 10:43 EST Psychosocial History Do You Have a History of the Following? : Patient denies history Currently in Unsafe Situation : No RAY MORENO RN - 03/25/2019 10:43 EST Advance Directive Patient has Advance Directive *Q : No, patient refuses Advance Directive information RAY MORENO RN - 03/25/2019 10:43 EST Teaching/Learning Assessment Barriers To Learning : None evident Individuals Taught : Patient Readiness to Learn : Cooperative Readiness to Learn : Demonstration, Explanation Learning Style Preferences Patient : Demonstration, Verbal explanation Learning Style Preferences Family : Demonstration, Verbal explanation RAY MORENO RN - 03/25/2019 10:43 EST Education Topics, Periop Preadmission Perioperative Education Grid CHG Preoperative Bathing/Cloths : Verbalizes understanding Falls : Verbalizes understanding Infection Control : Verbalizes understanding IV's : Verbalizes understanding NPO Status/Directions : Verbalizes understanding Pain Management : Verbalizes understanding Postoperative Care Preparations : Verbalizes understanding Preprocedure Preparations : Verbalizes understanding Preprocedure Tests/Labs : Verbalizes understanding RAY MORENO RN - 03/25/2019 10:43 EST General Info Legal Guardian : No Support Person/Patient Fruit Culler : Yes Support Person/Pt Rep Name : Vandana Hurley Contact Password : michael Support Person/Pt Rep Contact Information : [phone] Want Family/Rep/Phys Notified of Admit : No Emergency Contact #1 : Vandana Emergency Contact #1 Phone Number : \[phone] Emergency Contact #1 Relationship : wifex Emergency Contact #2 : x Emergency Contact #2 Phone Number : x Emergency Contact #2 Relationship : x Primary Language : British Preferred Communication Mode : Verbal Communication Barrier : None RAY MORENO RN - 03/25/2019 10:43 EST Sleep Apnea Risk Assmt BiPAP/CPAP Ordered for Home Use : No Hx of Obstructive Sleep Apnea Diagnosis : Yes Age over 50 Years Old : Yes Gender Male : Yes RAY MORENO RN - 03/25/2019 10:43 EST Solomon Scale Solomon Sensory Perception : No impairment Solomon Moisture : Rarely moist Solomon Activity : Walks frequently Solomon Mobility : No limitation Solomon Nutrition : Adequate Solomon Friction and Shear : No apparent problem Solomon Score : 22 RAY MORENO RN - 03/25/2019 10:43 EST Pain Assessment Pain Assessment : Initial assessment Pain Scale Used : 0-10 Scale RAY MORENO RN - 03/25/2019 10:43 EST Fall Risk Scales ABCs Fall Injury Risk Identification : None MARIN Hx Falls Immediate/Within 3 Months : No Marin Secondary Diagnosis : Yes MARIN Use of Ambulatory Aid : Bed rest/Nurse assist MARIN IV Therapy or IV Access : Yes Marin Gait/Transferring : Normal, bedrest, immobile Marin Mental Status : Oriented to own ability Marin Fall Risk Score : 35 MARIN Fall Scale Risk Level : 25-45 Medium Risk [place] Fall Interventions : Adequate lighting, Assistive devices within reach, Bed in low position, Call device within reach, Fall prevention handout/education per facility policy, Hourly comfort/safety rounds, Non-slip footwear, Personal items within reach, Reinforced to call for assistance before getting out of bed, Room free of clutter/spills, Upper side-rails up, Wheels locked, Wires/Cords secured RAY MORENO RN - 03/25/2019 10:43 EST Valuables and Belongings Valuables and Belongings : Clothing Clothing : Common streetwear Clothing Disposition : Bedside RAY MORENO RN - 03/25/2019 10:43 EST Pain Scale Intensity : 0 RAY MORENO RN - 03/25/2019 10:43 EST Image 4 - Images currently included in the form version of this document have not been included in the text rendition version of the form. documented in this encounter Plan of Treatment Not on file documented as of this encounter Visit Diagnoses Not on filedocumented in this encounter
--- OUTSIDE RECORDS SUMMARY | 2024-09-18 07:40 | XMS_ITS | Encounter Summary ---
Author Organization [employer] Address [address] [place] [address] Care Team Providers Care Pit Shovel Operator Name Role Phone Unavailable Primary Care Provider Unavailabl e Encounter Details Date Type Department Care Team (Late st Contact Info) Description 03/25/2019 Transcribed Document [facility] Cardiology [address] [place] [address] Ilan Rhodes MD [address] [facility] [address] [place] [address] Social History Tobacco Use Types Packs/Day Years Used Date Smoking Tobacco: Never Assessed Sex and Gender Information Value Date Recorded Sex Assigned at Male 10/03/2021 5:40 PM CDT Legal Sex Male 5:40 PM CDT Gender Identity Male 10/03/2021 5:40 PM CDT Sexual Orientation Not on file documented as of this encounter Miscellaneous Notes * Cerner Conversion Note - Ilan Rhodes MD - 03/25/2019 12:00 PM EST Patient: LISETTE HURLEYJENNIFER DUARTE Age: 53 years Sex: Male : 1965 Associated Diagnoses: None Author: ILAN RHODES MD-CAR Basic Information PCP: JAGDISH OSUNA Bindery Technician: Rhonda Jha MD Chief Complaint chest pain History of Present Illness 53 year old male with a history of CAD, HTN, HLD, ongoing tobacco use, and bradycardia. He was seen by Dr Salcedo with complaints of midsternal chest pain. He denies any obvious trigger or releiving factors. He underwent a stress echo that was abnormal suggesting anteroseptal hypokinesis, EF 55%. He has been scheduled for elective cardiac cath. Review of Systems Constitutional: Negative except as documented in history of present illness. Eye: Negative except as documented in history of present illness. Ear/Nose/Mouth/Throat: Negative except as documented in history of present illness. Respiratory: Negative except as documented in history of present illness. Cardiovascular: Negative except as documented in history of present illness. Gastrointestinal: Negative except as documented in history of present illness. Genitourinary: Negative except as documented in history of present illness. Hematology/Lymphatics: Negative except as documented in history of present illness. Endocrine: Negative except as documented in history of present illness. Immunologic: Negative except as documented in history of present illness. Musculoskeletal: Negative except as documented in history of present illness. Integumentary: Negative except as documented in history of present illness. Neurologic: Negative except as documented in history of present illness. Psychiatric: Negative except as documented in history of present illness. Health Status No qualifying data available Home Medications (7) Active aspirin 81 mg oral tablet 81 mg = 1 Tab, Oral, Daily fenofibrate 160 mg oral tablet 160 mg = 1 Tab, Oral, Daily Imdur 30 mg oral tablet, extended release 30 mg = 1 Tab, Oral, QAM Lipitor 20 mg oral tablet 20 mg = 1 Tab, Oral, At Bedtime lisinopril 5 mg oral tablet 5 mg = 1 Tab, Oral, Daily Metoprolol Succinate ER 25 mg oral tablet, extended release 25 mg = 1 Tab, Oral, Daily traMADol 50 mg oral tablet 50 mg = 1 Tab, PRN, Oral, TID Allergies: Allergic Reactions (Selected) No Known Allergies Current medications: (Selected) Prescriptions Prescribed Imdur 30 mg oral tablet, extended release: 1 Tab, Oral, QAM, 30 Tab, 11 Refill(s) Documented Medications Documented Lipitor 20 mg oral tablet: 1 Tab, Oral, At Bedtime, 0 Refill(s) Metoprolol Succinate ER 25 mg oral tablet, extended release: 1 Tab, Oral, Daily, 0 Refill(s) aspirin 81 mg oral tablet: 1 Tab, Oral, Daily, 0 Refill(s) fenofibrate 160 mg oral tablet: 1 Tab, Oral, Daily, 0 Refill(s) lisinopril 5 mg oral tablet: 1 Tab, Oral, Daily, 0 Refill(s) traMADol 50 mg oral tablet: 1 Tab, Oral, TID, PRN: for pain, 0 Refill(s), No qualifying data available Problem list: All Problems HTN (hypertension) / SNOMED CT 8827068682 / Confirmed HLD (hyperlipidemia) / SNOMED CT 60403659 / Confirmed CAD - Coronary artery disease / SNOMED CT 4321396858 / Confirmed HTN - Hypertension / SNOMED CT 3648553903 / Confirmed HLD - Hyperlipidemia / SNOMED CT 656583713 / Confirmed, Active Problems (2) HLD (hyperlipidemia) HTN (hypertension) No qualifying data available Home Medications (7) Active aspirin 81 mg oral tablet 81 mg = 1 Tab, Oral, Daily fenofibrate 160 mg oral tablet 160 mg = 1 Tab, Oral, Daily Imdur 30 mg oral tablet, extended release 30 mg = 1 Tab, Oral, QAM Lipitor 20 mg oral tablet 20 mg = 1 Tab, Oral, At Bedtime lisinopril 5 mg oral tablet 5 mg = 1 Tab, Oral, Daily Metoprolol Succinate ER 25 mg oral tablet, extended release 25 mg = 1 Tab, Oral, Daily traMADol 50 mg oral tablet 50 mg = 1 Tab, PRN, Oral, TID Histories No education data available. Social & Psychosocial Habits Alcohol 07/19/2016 Alcohol Use History, Social Habits No Home/Environment 07/19/2016 Lives with: Spouse Living situation: Home/Independent Substance Abuse 07/19/2016 Recreational Drug Use History No Recreational Drug Use Last 12 Months No Tobacco 07/19/2016 Smoking Status Current every day smoker Past Medical History: Active CAD - Coronary artery disease (2176140627) HLD - Hyperlipidemia (664082271) HTN - Hypertension (7569335471) Family History: Entire family history is negative. Procedure history: open heart surgery. Appendectomy; ([id number]). Social History Social & Psychosocial Habits Alcohol 07/19/2016 Alcohol Use History, Social Habits No Home/Environment 07/19/2016 Lives with: Spouse Living situation: Home/Independent Substance Abuse 07/19/2016 Recreational Drug Use History No Recreational Drug Use Last 12 Months No Tobacco 07/19/2016 Smoking Status Current every day smoker . No education data available. Social & Psychosocial Habits Alcohol 07/19/2016 Alcohol Use History, Social Habits No Home/Environment 07/19/2016 Lives with: Spouse Living situation: Home/Independent Substance Abuse 07/19/2016 Recreational Drug Use History No Recreational Drug Use Last 12 Months No Tobacco 07/19/2016 Smoking Status Current every day smoker Physical Examination VS/Measurements No qualifying data available General: Alert and oriented. Eye: Pupils are equal, round and reactive to light. HENT: Normocephalic. Neck: Supple, No carotid bruit, No jugular venous distention. Respiratory: Lungs are clear to auscultation, Respirations are non-labored, Breath sounds are equal. Cardiovascular: Normal rate, Regular rhythm, No murmur, No gallop, Good pulses equal in all extremities. Gastrointestinal: Soft, Non-tender, Non-distended, Normal bowel sounds. Musculoskeletal: Normal range of motion, Normal strength. Integumentary: Warm, Dry, [place]. Neurologic: Alert, Oriented. Psychiatric: Cooperative. Review / Management No qualifying data available Cardiac Markers (Current Encounter/Past 24 Hours) No Cardiac Marker Results Found (Past 24 Hours) Blood Gases (Current Encounter/Past 24 Hours) No Blood Gas Results Found (Past 24 Hours) No Radiology Results Found No qualifying data available Cardiac Markers (Current Encounter/Past 24 Hours) No Cardiac Marker Results Found (Past 24 Hours) Blood Gases (Current Encounter/Past 24 Hours) No Blood Gas Results Found (Past 24 Hours) No Radiology Results Found Results review: No qualifying data available. Impression and Plan IMPRESSION: * CAD H/O CABG BAINS to LAD and SVG * HTN * HLD * Bradycardia PLAN; Cardiac catheterization with possible catheter based intervention. Risk, benefits and alternative therapy discussed in detail. She has given verbal and written consent. documented in this encounter Plan of Treatment Not on file documented as of this encounter Visit Diagnoses Not on filedocumented in this encounter
--- OUTSIDE RECORDS SUMMARY | 2024-09-18 07:40 | XMS_ITS | Encounter Summary ---
Author Organization [employer] Address [address] [place] [id number] Care Team Providers Care Jewelry Sales Associate Name Role Phone Unavailable Primary Care Provider Unavailabl e Encounter Details Date Type Department Care Team (Late st Contact Info) Description 08/31/2020 Transcribed Document [facility] [place] [facility] [place] [address] ProviderZulma MD [address] [place] [address] Social History Tobacco Use Types [...] Conversion Note - Historical ProviderMD - 08/31/2020 9:39 AM CDT Pre Procedure Adult Entered On: 08/31/2020 9:42 EDT Performed On: 08/31/2020 9:39 EDT by PATRICIA GODOY Rn-Clinical Coordinator I Height and Weight, Clinical Dosing Height Source : Stated Height Entry Format : [place] Height, Feet : 6 ft(Converted to: 183 cm, 72 Inch) Height, Inches : 1 Inch(Converted to: 0 ft 1 Inch, 2.54 cm) Clinical Height : 185.42 cm Weight Source : Standing scale Weight Entry Format : [place] Clinical Dosing Weight : 86.82 kg Weight, Pounds : 191 lb Body Surface Area (BSA) : 2.11 m2 Body Mass Index : 25.3 kg/m2 (HI) [place] Body Weight : 79 kg PATRICIA GODOY Rn-Clinical Coordinator I - 08/31/2020 9:39 EDT Health Histories Smoking Status : 10 or more cigarettes (1/2 pack or more)/day in last 30 days Smokeless Tobacco Status : Never Desires Tobacco Cessation Medication : No Reason for No Tobacco Cessation Medication : Refuses FDA approved medications PATRICAI GODOY Rn-Clinical Coordinator I - 08/31/2020 9:39 EDT Social History (As Of: 08/31/2020 09:42:39 EDT) Tobacco: Smoking Status Current every day smoker. [...] by LILIANA GARCÍA PA-C) Infectious Disease History Has the patient ever been tested for COVID-19? : Yes, Patient stated results Negative Date of COVID-19 test known? : Yes Date of COVID-19 Test : 08/29/2020 EDT Does patient have symptoms of COVID-19? : No COVID19 Screening : No Experiencing Infectious Disease Symptoms : No symptoms Physical contact outside [place] in the last 30 days : No Infectious Disease History : Chicken pox/Shingles Tuberculosis Symptoms : None PATRICIA GODOY Rn-Clinical Coordinator I - 08/31/2020 9:39 EDT COVID19 PreProcedure Screening Is this an Emergent or Add on Procedure? : No Date PreProcedure COVID-19 test known? : Yes Date of PreProcedure COVID-19 : 08/29/2020 EDT Has patient been isolated since the test : Yes Exposed to COVID19 symptoms since test? : No PATRICIA GODOY Rn-Clinical Coordinator I - 08/31/2020 9:39 EDT Anesthesia/Transfusion History Family History of Anesthesia Reaction : No prior transfusion(s) Transfusion History : Prior anesthesia without reaction Family History of Anesthesia Reaction : None PATRICIA GODOY Rn-Clinical Coordinator I - 08/31/2020 9:39 EDT Functional Assessment Living Situation : Home Patient Lives With : Spouse Current Home Treatments : None PATRICIA GODOY Rn-Clinical Coordinator I - 08/31/2020 9:39 EDT [place] Suicide Severity Rating Scale (C-SSRS) CSSRS Past Month Wish to be : No CSSRS Past Month Suicidal Thoughts : No CSSRS Lifetime Suicide Behavior : No Suicide Severity Rating Score : 0 Suicide Severity Rating : No Additional Care Required at this time PATRICIA GODOY Rn-Clinical Coordinator I - 08/31/2020 9:39 EDT Psychosocial History Do You Have a History of the Following? : Patient denies history Currently in Unsafe Situation : No PATRICIA GODOY Rn-Clinical Coordinator I - 08/31/2020 9:39 EDT Advance Directive Patient has Advance Directive *Q : No, patient refuses Advance Directive information PATRICIA GODOY Rn-Clinical Coordinator I - 08/31/2020 9:39 EDT Teaching/Learning Assessment Barriers To Learning : None evident PATRICIA GODOY Rn-Clinical Coordinator I - 08/31/2020 9:39 EDT Education Topics, Periop Preadmission Perioperative Education [place] : Verbalizes understanding IV's : Verbalizes understanding Preprocedure Preparations : Verbalizes understanding Preprocedure Tests/Labs : Verbalizes understanding PATRICIA GODOY Rn-Clinical Coordinator I - 08/31/2020 9:39 EDT General Info Legal Guardian : No Support Person/Patient Nursing Center Tutor : Yes Support Person/Pt Rep Name : Vandana Hurley Contact Password : michael Support Person/Pt Rep Contact Information : [phone] Want Family/Rep/Phys Notified of Admit : No Emergency Contact #1 : . Emergency Contact #1 Phone Number : . Emergency Contact #1 Relationship : . Emergency Contact #2 : . Emergency Contact #2 Phone Number : . Emergency Contact #2 Relationship : . Primary Language : Stateless Preferred Communication Mode : Verbal Communication Barrier : None Sanitation Technician Needed : No PATRICIA GODOY Rn-Clinical Coordinator I - 08/31/2020 9:39 EDT Sleep Apnea Risk Assmt Hx of Obstructive Sleep Apnea Diagnosis : No Snore Loudly : No Tired, Fatigued, or Sleepy During Day : No Observed Stopping Breathing During Sleep : No Have/Are Being Treated for Hypertension : Yes BMI Greater Than 35 kg/m2 : No Age over 50 Years Old : Yes Neck Circumference Greater Than 40 cm : No Gender Male : Yes STOP-BANG Sleep Apnea Risk Level Score : 3 PATRICIA GODOY Rn-Clinical Coordinator I - 08/31/2020 9:39 EDT Solomon Scale Solomon Sensory Perception : No impairment Solomon Moisture : Rarely moist Solomon Activity : Walks frequently Solomon Mobility : No limitation Solomon Nutrition : Adequate Solomon Friction and Shear : No apparent problem Solomon Score : 22 PATRICIA GODOY Rn-Clinical Coordinator I - 08/31/2020 9:39 EDT Fall Risk Scales ABCs Fall Injury Risk Identification : None MARIN Hx Falls Immediate/Within 3 Months : No Marin Secondary Diagnosis : Yes MARIN Use of Ambulatory Aid : None MARIN IV Therapy or IV Access : Yes [place] Gait/Transferring : Normal, bedrest, immobile Marin Mental Status : Oriented to own ability [place] Fall Risk Score : 35 MARIN Fall Scale Risk Level : 25-45 Medium Risk [place] Fall Interventions : Adequate lighting, Assistive devices within reach, Bed in low position, Call device within reach, Personal items within reach, Reinforced to call for assistance before getting out of bed, Room free of clutter/spills PATRICIA GODOY Rn-Clinical Coordinator I - 08/31/2020 9:39 EDT Valuables and Belongings Valuables and Belongings : Clothing Clothing : Common streetwear Clothing Disposition : Bedside, With family PATRICIA GODOY Rn-Clinical Coordinator I - 08/31/2020 9:39 EDT documented in this encounter Plan of Treatment Not on file documented as of this encounter Visit Diagnoses Not on filedocumented in this encounter
--- OUTSIDE RECORDS SUMMARY | 2024-09-18 07:40 | XMS_ITS | Encounter Summary ---
Author Organization [employer] Address [address] [place] [address] Care Team Providers Care Trouble Clerk Name Role Phone Unavailable Primary Care Provider Unavailabl e Encounter Details Date Type Department Care Team (Late st Contact Info) Description 08/31/2020 Transcribed Document [facility] Cardiology [address] [place] [address] Ilan Rhodes MD [address] [facility] [address] [place] [address] Social History Tobacco Use Types [...] Conversion Note - Ilan Rhodes MD - 08/31/2020 10:00 AM EDT Patient: GEOVANNA HURLEY GERALD Age: 55 years Sex: Male : 1965 Associated Diagnoses: None Author: ILAN RHODES MD-CAR Basic Information PCP: Rogelio Marie Primary Manager Administrative: Dr. Jha Chief Complaint Chest Pain, Abnormal Stress History of Present Illness The patient is a 55 yo male with a PMH of HTN, HLD, CHF, COPD, INES, CAD (CABG x2 2011), smoker 2ppd x35 years.. The patient reports chest pain 2-3 times per week. He describes as a midsternal ache that at rest does not radiate, but with exertion radiates to the left shoulder. The patient is referred by Dr. Jha for LHC due to abnormal stress showing fixed apical defect suggestive of scarring, and anteroseptal defect suggestive of ischemia, normal EF. Patient presents today for [facility] with Dr. Ilan Rhodes. Review of Systems Constitutional: Negative except as [...] Status No qualifying data available Home Medications (11) Active aspirin 81 mg oral tablet 81 mg = 1 Tab, Oral, Daily atorvastatin 40 mg oral tablet , Oral, Daily Flovent HFA 110 mcg/inh inhalation aerosol 2 Puff, Inhalation, Daily gabapentin 300 mg oral capsule 300 mg = 1 Cap, Oral, BID lisinopril 5 mg oral tablet 5 mg = 1 Tab, Oral, Daily meloxicam 7.5 mg oral tablet , Oral, Daily Metoprolol Succinate ER 25 mg oral tablet, extended release 25 mg = 1 Tab, Oral, Daily Metoprolol Tartrate 25 mg oral tablet 12.5 mg = 0.5 Tab, Oral, BID Ranexa 500 mg oral tablet, extended release , Oral, BID traMADol 50 mg oral tablet 50 mg = 1 Tab, PRN, Oral, TID Ventolin HFA 90 mcg/inh inhalation aerosol , Inhalation, QID Allergies: Allergic Reactions (All) No Known Allergies Current medications: (Selected) Inpatient Medications Ordered Normal Saline Flush: 10 mL, IV Push, Q12H Normal Saline Flush: 10 mL, IV Push, See Comment, PRN: IV Use Sodium Chloride 0.9% intravenous solution 500 mL: Titrate, IntraVENous Documented Medications Documented DULoxetine: 60 mg, Oral, Daily, 0 Refill(s) Flovent HFA 110 mcg/inh inhalation aerosol: 2 Puff, Inhalation, Daily, 0 Refill(s) Metoprolol Tartrate: 12.5 mg, Oral, BID, 0 Refill(s) Ranexa 500 mg oral tablet, extended release: Tab, Oral, BID, 0 Refill(s) Ventolin HFA 90 mcg/inh inhalation aerosol: Puff, Inhalation, QID, 0 Refill(s) aspirin 81 mg oral tablet: 1 Tab, Oral, Daily, 0 Refill(s) atorvastatin 40 mg oral tablet: Tab, Oral, Daily, 0 Refill(s) gabapentin 300 mg oral capsule: 1 Cap, Oral, BID, 60 Cap, 0 Refill(s) lisinopril 5 mg oral tablet: 1 Tab, Oral, Daily, 0 Refill(s) meloxicam: 15 mg, Oral, Daily, 0 Refill(s) tamsulosin: 0.4 mg, Oral, Daily, 0 Refill(s) traMADol 50 mg oral tablet: 1 Tab, Oral, TID, PRN: for pain, 0 Refill(s), No qualifying data available Problem list: All Problems CAD - Coronary artery disease / SNOMED CT 7127741089 / Confirmed HTN - Hypertension / SNOMED CT 9861794497 / Confirmed HLD - Hyperlipidemia / SNOMED CT 268752348 / Confirmed History of obstructive sleep apnea / IMO 75267109 / Confirmed HTN (hypertension) / SNOMED CT 6633384734 / Confirmed HLD (hyperlipidemia) / SNOMED CT 75259553 / Confirmed Histories No education data available. Social & Psychosocial Habits Alcohol 07/19/2016 Alcohol Use History, Social Habits No Home/Environment 07/19/2016 Lives with: Spouse Living situation: Home/Independent Substance Abuse 07/19/2016 Recreational Drug Use History No Recreational Drug Use Last 12 Months No Tobacco 07/19/2016 Smoking Status Current every day smoker Past Medical History: Active CAD - Coronary artery disease (4926481101) COPD (Chronic Obstructive Pulmonary Disease) Assessment Test scale (6807287496) HLD - Hyperlipidemia (377480692) HTN - Hypertension (4128243932) Tobacco abuse (096133550) Family History: Entire family history is negative., Non-contributory Procedure history: CORONARY ARTERY BYP W/VEIN & ARTERY GRAFT 1 VEIN (23686) on 04/08/2010 at 44 Years. Comments: 08/31/2020 9:12 EDT - Ruby Espino, RICHY-ROUNDING BAINS to LAD SVG to PDA Appendectomy; (54626). open heart surgery. Physical Examination VS/Measurements No qualifying data available General: Alert and oriented, No acute distress. Eye: Pupils are equal, round and reactive to light, Normal conjunctiva. HENT: Normocephalic. Neck: Supple, No jugular venous distention. Respiratory: Lungs are clear to auscultation, Respirations are non-labored, Symmetrical chest wall expansion. Cardiovascular: Normal rate, Regular rhythm, No murmur, Good pulses equal in all extremities. Gastrointestinal: Soft, Non-distended, Normal bowel sounds. Musculoskeletal: Normal range of motion, Normal strength. Integumentary: Warm, Dry, [place]. Neurologic: Alert, Oriented. Psychiatric: Cooperative, Appropriate mood & affect. Review / Management No qualifying data available Results review: No qualifying data available. Documentation reviewed: Reviewed prior records. Impression and Plan IMPRESSION: Chest Pain/Abnormal Stress- Fixed apical defect suggestive of scarring, and anteroseptal defect suggestive of ischemia, normal EF. CAD- CABG 2010 BAINS to LAD, SVG to PDA, LHC 2019 Stable CAD patent 2 of 2 grafts. HTN HLD COPD INES Tobacco Abuse-2ppd x35 years PLAN; [facility] with possible percutaneous coronary intervention. Risk and benefits discussed with patient. Patient wishes to proceed. Plan for left radial access. documented in this encounter Plan of Treatment Not on file documented as of this encounter Visit Diagnoses Not on filedocumented in this encounter
--- OUTSIDE RECORDS SUMMARY | 2024-09-18 07:40 | XMS_ITS | Continuity of Care Document ---
Author Organization [place] [facility], [place] [facility] New Address [address] [place] [address] Assessment Encounter Date Assessment Date Assessment LastModified by Organization Details LastModified Time 08/19/2024 08/19/2024 This patient is still scheduling his MRI. He does have approval now. He is going to schedule this at [facility]. Will follow-up on those results. In the [...] Lab None recorded. Referral None recorded. Procedures None recorded. Surgeries None recorded. Imaging None recorded. Medication Orders celecoxib 100 mg capsule 2024 025 [place] [facility], [address] [place], [address], 08/21/2024 11:50:04 gabapenti n 800 mg tablet 2024 025 [place] [facility], [address] [place], [address], 08/21/2024 11:50:05 hydrocodo ne 10 mg-acetam inophen 325 mg tablet 2024 025 [place] [facility], [address] [facility], [place], [address], 08/21/2024 11:50:04 methocarb luc 750 mg tablet 2024 025 [place] [facility], [address] [facility], [place], [address], 08/21/2024 11:50:03 Patient TargetsNo targets recorded. Patient InstructionsNo instructions recorded. Reason for Referral None Reported. Problems Name Problem SNOMED Code Status Onset Date Resolution Date Notes Provider Name and Address Organization Details Recorded Time Post dural puncture headache 826910181 Active 2023 Varun Crowder MD [address] [facility],[address], [address], [place] [facility] 4 14:46:45 Degeneration of lumbar intervertebral disc 54321834 Active 2023 Varun Crowder MD [address] [facility],[address], [address], [place] [facility] 4 14:46:46 Lumbar spondylosis 464093381 Active 2023 Varun Crowder MD [address] [facility],[address], [address], [place] [facility] 4 14:46:47 Spinal stenosis of lumbar region 83583402 Active 2023 Varun Crowder MD [address] [facility],[address], [address], [place] [facility] 4 14:46:48 Lumbar radiculopathy 815812102 Active 2023 Varun Crowder MD [address] [facility],[address], [address], [place] [facility] 4 14:46:50 Long-term drug therapy Active 2024 GOLDEN ALVARADO [address] [facility],[address], [address], [place] [facility] 16:16:39 Continuous opioid dependence 744310319 Active 2024 GOLDEN ALVARADO [facility] [address], [address], [place] [facility] 16:16:40 Problem Notes None recorded. Procedures Surgical History Date Name Laterality Status Provider Name and Address Organization Details Recorded Time 06/25/19 25 Diagnostic SI Joint Injection Under Fluoroscopy completed Varun Crowder MD [address] [place] [address], [address], [place] [facility] 06/24/2024 14:57:08 12/26/19 24 Lumbar MISSY: Interlaminar completed Varun Crowder MD [address] [place] [address], [address], [place] [facility] 12/26/2023 16:48:56 10/07/19 24 Lumbar MISSY: Interlaminar completed Varun Crowder MD [address] [place] [address], [address], [place] [facility] 10/07/2023 14:35:51 coronary artery bypass graft completed [facility] [place] [facility] 10/07/2023 13:12:57 Appendectomy completed [facility] [place] [facility] 10/07/2023 13:13:06 [...] Not Available Vitals Date Recorded Body height Body mass index (BMI) Body weight Heart rate Oxygen saturation Oxygen saturation in Arterial blood by Pulse oximetry Systolic blood pressure Diastolic blood pressure Provider Name and Address Organization Details Last Updated DateTime 5 185.42 cm 23.7 kg/m2 45935.6 3 g 74 /min 98 % 98 % 142 mm[Hg] 72 mm[Hg] [facility] 11:32:30 Social History Question Answer Notes LastModified by Organizat ion Details LastModified Time Tobacco Smoking Status Current Every Day Smoker [facility] 10/07/2023 13:14:29 In The 14 Days Before Symptom Onset, Have You Had Close Contact With A Laboratory-confirm ed COVID-19 While That Case Was Ill? No [email or web address] Information n ot available 10/07/2023 In The 14 Days Before Symptom Onset, Have You Had Close Contact With A Person Who Is Under Investigation For COVID-19 While That Person Was Ill? No [email or web address] Information not available 10/07/2023 Have You Been To An Area Known To Be High Risk For COVID-19? No [email or web address] Information not available 10/07/2023 Sex: Unknown Functional Status Question Answer Note LastModified by Organizat ion Details LastModified Time Do you use any illicit or recreational drugs? No [email or web address] Information not available 10/07/2023 Do you or have you ever used any other forms of tobacco or nicotine? No [email or web address] Information not available 10/07/2023 What is your level of alcohol consumption? None [email or web address] Information not available 10/07/2023 Mental Status None recorded. Family History Nothing Reported. Medical History Condition Response Coronary Artery Disease Y Gout N Hernia N Head Trauma/Injury N Thyroid Problems N Depression N COPD N Anemia N Heart Attack ([place]) N Ulcers N Diabetes N Anxiety Disorder [...] SNOMED-CT Code Diagnosis ICD10 Code Diagnosis Note [id number] GOLDEN ALVARADO [place] [facility] [place] [address] [place] [address] 07/22/2024 11:02:55 07/22/2024 12:44:39 Lumbar radiculopathy 444590636 M54.16 Spinal héctor nosis of lumbar region 88803954 M48.062 Continuous opioid dependence 253591779 F11.20 Degenerati on of lumbar intervertebral disc 45545368 M51.369 Long-term current use of opiate analgesic drug 0583407646 44341 Z79.891 Long-term drug therapy 347890941 Z79.891 18667 Varun Crowder MD [place] [facility] [address] [place] [address] 08/19/2024 11:24:52 08/19/2024 12:20:12 Lumbar radiculopathy 258859878 M54.16 Spinal héctor nosis of lumbar region 92174885 M48.062 Continuous opioid dependence 505502939 F11.20 Post dural puncture headache 338888526 G97.1 Lumbar spondylosis 79158 0009 M47.896 Degenerati on of lumbar intervertebral disc 34729051 M51.369 Health Concerns Section Related Observation LastModified by Organization Detai ls LastModified Time None Recorded Concern Status LastModified by Organization Details LastModified Time None Recorded Payers Encounter Date Sequence Insurance Name Policy Number Policy Boudreaux Covered Member ID Boudreaux Member ID Guarantor Name 08/19/2024 2 ADENIKE - G[facility] Brad Hurley [id number] Brad Hurley Notes Date Note Type Note Provider Name and Address Organization Details Recorded Time 08/19/2024 text/html [facility] d bypatient.Location:lum bar;pain [...] Quality:varying intensity Varun Crowder MD [address], [place], [address], [facility] 08/19/2024 12:51:06
--- OUTSIDE RECORDS SUMMARY | 2024-09-18 07:40 | XMS_ITS | Data Portability ---
Author Organization [facility] Address [address] [facility] [address] [place] [address] Care Team Providers Care Factory Focus Technician Name Role Phone JAGDISH OSUNA Primary Care Provider Assessment No assessment recorded. Plan of Treatment Reminders Order Date Submit Date Provider Last Modified By Organization Details Last Modified Time Details Appointments None recorded. Lab CMP, serum or plasma 2016 017 [facility], [address] [place] [address], [id number], 7 16:32:52 magnesium, QN, serum or plasma 2016 017 [facility], [address] [place] [address], [address], 7 16:32:54 TSH, serum or plasma 2016 017 [facility], [address] [place] [address], [address], 7 16:44:12 T4, total, serum 2016 017 [facility], [address] [place] [address], [address], 7 16:35:11 lipid panel, serum 2016 017 [facility], [address] [place] [address], [address], 7 16:32:51 Referral cardiac rehabilita tion provider referral 2016 017 [email or web address] Not available 7 09:54:17 Procedures None recorded. Surgeries None recorded. Imaging None recorded. Medication Orders nicotine 21 mg/24 hr daily transderma l patch 2017 018 [facility] [address] [place], [address], 8 14:37:24 isosorbide mononitrat e ER 60 mg tablet,ext ended release 24 hr 2016 017 [facility] [address] [place], [address], 7 14:47:50 nitroglyce rin 0.4 mg sublingual tablet 2016 017 [facility] [address], [address] [place] [address], [address], 7 18:47:52 isosorbide mononitrat e ER 30 mg tablet,ext ended release 24 hr [address] [place], [address], 7 14:47:56 Chantix Starting Month Box 0.5 mg (11)-1 mg (42) tablets in dose pack [address], [address] [place] [address], [address], 7 14:47:53 Chantix Continuing Month Box 1 mg tablet [address], [address] [place] [address], [address], 7 14:47:48 Patient TargetsNo targets recorded. Patient Instructions Encounter Date Encounter Id Patient Instructions Last Modified By Organization Details Last Modified Time 08/20/2016 [id number] deciding about using medicines to quit smoking Not available 08/20/2016 10:27:19 Quitting Tobacco : Care Instructions Not available 08/20/2016 10:27:19 12/04/2016 [id number] deciding about using medicines to quit smoking [place] Not available 12/06/2016 16:37:49 Quitting Tobacco : Care Instructions [place] Not available 12/06/2016 16:37:49 Angina: Care Instructions [place] Not available 12/06/2016 16:39:19 pulse oximetry* [place] Not available 12/05/2016 07:13:30 05/31/2017 [id number] Quitting Tobacco : Care Instructions [email or web address] Not available 05/31/2017 14:37:20 I reviewed his EKG which is within normal limits. I reviewed his medications and advised compliance. I recommended he monitor his blood pressure at home and decrease sodium intake to 2000 mg a day. I recommended he maintain a low-fat/low-anuj sterol diet. Smoking cessation was counseled at length. A prescription for nicotine patch 81 mg was given. Compliance was advised. He is otherwise doing well. I will follow-up with him in 6-8 months or sooner if needed. Thank you for allowing us to participate in the care of your patient. If we can be of any further assistance please do not hesitate to contact us. Hugo Waterman MD, FACP, FACC, [facility] Cardiology-[facility] [phone] [email or web address] Not available 05/31/2017 14:38:56 Reason for Referral Cardiac Rehabilitation Provi alexandra Referral for Coronary arteriosclerosis in [place] artery Referring Physician: Walker Mathews, Cardiology, Encounter Date: 08/20/2016 Results Created Date Observation Date Name Description Value Unit Range Abnormal Flag Note LastModifiedBy Organization Detail LastModifiedTime 12/05/19 17 12/04/2016 lipid panel , serum HDL cholesterol 29 mg/dL 56-242 low Not Available [facility] [address] [place], [address], 12/04/2016 16:32:51 12/05/19 17 12/04/2016 lipid panel , serum triglyceride s 161 mg/dL 0-149 high TRIGL YCERI DE RANGE S CYNTHIA L: < 150 BORDE RLINE HIGH: 150 - 199 HIGH: 200 - 499 VERY HIGH: > OR = 500 Not Available [facility] [address] [place] [address], [address], 12/04/2016 16:32:51 12/05/19 17 12/04/2016 lipid panel , serum cholesterol 139 mg/dL 0-199 normal ANUJ STERO L (TOTA L) RANGE S JUDY ABLE: < 200 BORDE RLINE : 200 - 239 HIGHE R RISK: > 239 Not Available [facility] [address] [place] [address], [address], 12/04/2016 16:32:51 12/05/19 17 12/04/2016 lipid panel , serum LDL cholesterol 78 mg/dL _(nomi c) 0-99 normal LDL ANUJ STERO L RANGE S OPTIM AL: < 100 NEAR/ ABOVE OPTIM AL: 100 - 129 BORDE RLINE HIGH: 130 - 159 HIGH: 160 - 189 VERY HIGH: > OR = 190 Not Available [facility] [address] [place] [address], [address], 12/04/2016 16:32:51 12/05/19 17 12/04/2016 CMP, serum or plasm a glucose 122 mg/dL 74-100 high Not Available [facility] [address] [place] [address], [address], 12/04/2016 16:32:52 12/05/19 17 12/04/2016 CMP, serum or plasm a blood urea nitrogen 14 mg/dL 6-20 normal Not Available [facility] [address] [place] [address], [address], 12/04/2016 16:32:52 12/05/19 17 12/04/2016 CMP, serum or plasm a creatinine 0.87 mg/dL 0.70-1 .25 normal Not Available [facility] [address] [place] [address], [address], 12/04/2016 16:32:52 12/05/19 17 12/04/2016 CMP, serum or plasm a BUN/creatini ne ratio 16 (calc ) 10-20 normal Not Available [facility] [address] [place], [address], 12/04/2016 16:32:52 12/05/19 17 12/04/2016 CMP, serum or plasm a GFR 117 >= 60 normal Not Available [facility] [address] [place] [address], [address], 12/04/2016 16:32:52 12/05/19 17 12/04/2016 CMP, serum or plasm a GFR non- 101 >= 60 normal NOT E NEW calcu latio n for GFR is based on the Natio nal Kidne y Found ation CKD-E PI equat ion and allow s for repor ting GFR value s great er than 60 mL/mi n/1.7 3 m2. This calcu latio n has not been valid ated for patie nts less than 18 yrs., pregn ant women and Hispa nics. Chron ic kidne y disea se is defin ed as kidne y damag e or GFR less than 60 mL/mi n/1.7 3 m2 for 3 month s or longe r. . Not Available [facility] [address] [place] [address], [address], 12/04/2016 16:32:52 12/05/19 17 12/04/2016 CMP, serum or plasm a sodium 140 mmol/ L 136-14 5 normal Not Available [facility] [address] [place] [address], [address], 12/04/2016 16:32:52 12/05/19 17 12/04/2016 CMP, serum or plasm a potassium 3.9 mmol/ L 3.4-5. 0 normal Not Available [facility] [address] [place], [address], 12/04/2016 16:32:52 12/05/19 17 12/04/2016 CMP, serum or plasm a chloride 103 mmol/ L 98-107 normal Not Available [facility] [address] [place], [address], 12/04/2016 16:32:52 12/05/19 17 12/04/2016 CMP, serum or plasm a carbon dioxide 22 mmol/ L 20-32 normal Not Available [facility] [address] [place] [address], [address], 12/04/2016 16:32:52 12/05/19 17 12/04/2016 CMP, serum or plasm a anion gap 15 (calc ) 7-25 normal Not Available [facility] [address] [place] [address], [address], 12/04/2016 16:32:52 12/05/19 17 12/04/2016 CMP, serum or plasm a calcium 9.5 mg/dL 8.6-10 .2 normal Not Available [facility] [address] [place] [address], [address], 12/04/2016 16:32:52 12/05/19 17 12/04/2016 CMP, serum or plasm a total protein 6.7 g/dL 6.4-8. 3 normal Not Available [facility] [address] [place] [address], [address], 12/04/2016 16:32:52 12/05/19 17 12/04/2016 CMP, serum or plasm a albumin 4.3 g/dL 3.5-5. 2 normal Not Available [facility] [address] [place] [address], [address], 12/04/2016 16:32:52 12/05/19 17 12/04/2016 CMP, serum or plasm a globulin 2.4 g/dL_ (calc ) 1.5-4. 5 normal Not Available [facility] [address] [place] [address], [address], 12/04/2016 16:32:52 12/05/19 17 12/04/2016 CMP, serum or plasm a albumin/glob ulin ratio 1.8 (calc ) 1.1-2. 5 normal Not Available [facility] [address] [place] [address], [address], 12/04/2016 16:32:52 12/05/19 17 12/04/2016 CMP, serum or plasm a bilirubin, total 0.4 mg/dL 0.1-1. 2 normal Not Available [facility] [address] [place] [address], [address], 12/04/2016 16:32:52 12/05/19 17 12/04/2016 CMP, serum or plasm a alkaline phosphatase 74 U/L 40-130 normal Not Available [facility] [address] [place] [address], [address], 12/04/2016 16:32:52 12/05/19 17 12/04/2016 CMP, serum or plasm a AST 18 U/L 0-40 normal Not Available [facility] [address] [place] [address], [address], 12/04/2016 16:32:52 12/05/19 17 12/04/2016 CMP, serum or plasm a ALT 16 U/L 0-41 normal Not Available [facility] [address] [place] [address], [address], 12/04/2016 16:32:52 12/05/19 17 12/04/2016 magne sium, QN, serum or plasm a magnesium 1.90 mg/dL 1.60-2 .60 normal Not Available [facility] [address] [place] [address], [address], 12/04/2016 16:32:54 12/05/19 17 12/04/2016 T4, total , serum T4 (thyroxine) 7.04 ug/dL 4.50-1 1.70 normal Not Available [facility] [address] [place] [address], [address], 12/04/2016 16:35:11 12/05/19 17 12/04/2016 TSH, serum or plasm a TSH 1.480 uIU/m L 0.290- 5.500 normal Not Available [facility] [address] [place], [address], 12/04/2016 16:44:12 07/24/19 17 07/20/2016 alonzokaylene major strai ght - obdulia nunoe (PROC ) No observ ation record ed. [facility] (Imaging) [address], [place], [address], 07/29/2016 10:10:25 12/06/19 17 12/04/2016 rhyth m strip , EKG* No observ ation record ed. BARCODE Not Available 2016 10:16:04 06/03/19 18 05/31/2017 elicia lopez am No observ ation record ed. BARCODE Not Available 2017 14:39:49 Result Notes None recorded. Procedures Surgical History Date Name Laterality Status Provider Name and Address Organization Details Recorded Time 8 EKG completed HUGO WATERMAN MD [address] [place] [address], [phone] [place] [address] 05/31/2017 14:35:54 7 EKG completed WALKER MATHEWS MD [address] [place] [address], [phone] [place] [address] 12/04/2016 14:46:29 7 Review of Med Recs/Compl forms completed WALKER MATHEWS MD [address] [place] [address], [address] [place] [address] 08/20/2016 10:19:59 Cardiac Surgery completed [facility] 05/31/2017 14:17:43 Cardiac Surgery completed [facility] 05/31/2017 14:17:56 Imaging Results None recorded. Procedure Notes None recorded. Medical Equipment None Reported. Allergies No known drug allergies Medications Name Sig Start Date Stop Date Status Note LastModified by Organization Details LastModified Time isosorbide mononitrat e ER 30 mg tablet,ext ended release 24 hr Take 1 tablet every day by oral route. 12/04 completed Not Available Not Available Not Available Lipitor 20 mg tablet Daily 2011 active Instruc tions: please keep appt 2 @ 11:45;F requenc y: daily;Angela dotson on Descrip tion: atorvas tatin; Dosage: 1; Route:o ral; refills :6; Quantit y:30 tablet Not Available Not Available Not Available isosorbide mononitrat e ER 60 mg tablet,ext ended release 24 hr Take 1 tablet(s ) every day by oral route. 2017 active Not Available Not Available Not Avai lable nicotine 21 mg/24 hr daily transderma l patch Apply 1 patch every day by transder mal route. 2017 active Not Available Not Available Not Avai lable nitroglyce rin 0.4 mg sublingual tablet 1 tab q 5 min, max 3 doses, As needed for chest pain 2016 active Not Available Not Available Not Avai lable aspirin 81 mg tablet Daily active Duratio n: 30 days;Fr equency : daily;Angela dotson on Descrip tion: aspirin ; Dosage: 1; Route:o ral; refills :0; Quantit y:30 tablet Not Available Not Available Not Available lisinopril 5 mg tablet Daily 2011 active Frequen cy: daily;A lt Frequen cy: as direct. ;Medica tion Descrip tion: lisinop ril; Dosage: 1; Route:o ral; refills :5; Quantit y:30 tablet Not Available Not Available Not Available metoprolol tartrate 25 mg tablet Two times a day 2011 active Frequen cy: bid;Med ication Descrip tion: metopro lol; Dosage: 1; Route:o ral; refills :6; Quantit y:60 tablet Not Available Not Available Not Available albuterol sulfate as directed active Not Available Not Available No t Available Chantix Continuing Month Box 1 mg tablet Take 1 tablet twice a day by oral route. 12/04 completed Not Available Not Available Not Available Chantix Starting Month Box 0.5 mg (11)-1 mg (42) tablets in dose pack As stated on box 12/04 completed Not Available Not Available Not Available Breo Ellipta as directed active Not Available Not Available No t Available Vitals Date Recorded Body height Body mass index (BMI) Body weight Heart rate Systolic blood pressure Diastolic blood pressure Provider Name and Address Organization Details Last Updated DateTime 8 185.42 cm 26.9 kg/m2 71436.8 4 g 60 /min 122 mm[Hg] 68 mm[Hg] Soni [facility] 8 14:21:41 Date Recorded Body weight Heart rate Oxygen saturation Oxygen saturation in Arterial blood by Pulse oximetry Systolic blood pressure Diastolic blood pressure Provider Name and Address Organization Details Last Updated DateTime 7 53468.4 g 66 /min 91 % 91 % 120 mm[Hg] 70 mm[Hg] [facility] 7 09:41:54 Date Recorded Body weight Body mass index (BMI) Body height Heart rate Oxygen saturation Oxygen saturation in Arterial blood by Pulse oximetry Systolic blood pressure Diastolic blood pressure Provider Name and Address Organization Details Last Updated DateTime 7 06827.4 7 g 26.4 kg/m2 185.42 cm 72 /min 98 % 98 % 144 mm[Hg] 82 mm[Hg] [facility] 7 14:25:34 Social History Question Answer Notes LastModified by Organizat ion Details LastModified Time Tobacco Smoking Status Current Every Day Smoker Soni [facility] 05/31/2017 14:14:59 Marital Status Informatio n not available 05/31/2017 What Was The Date Of Your Most Recent Tobacco Screening? 05/31/2017 Information not available 05/26/2019 How Many Children Do You Have? 2 Information not available 05/31/2017 How Much Tobacco Do You Smoke? 1 PPD Information not available 05/31/2017 Has Tobacco Cessation Counseling Been Provided? Yes Information not available 05/31/2017 On What Date Was Tobacco Cessation Counseling Provided? 05/31/2017 Information not available 05/31/2017 Sex: Unknown Functional Status Question Answer Note LastModified by Organization D etails LastModified Time What is your level of alcohol consumption? None Information not available 05/31/2017 Mental Status None recorded. Family History Relationship Description Onset Age of this Age Resolved Age Notes LastModified by Organization Details LastModified Time Father No current problems or disability egarth Not available 08/20 08:18:38 Mother No current problems or disability egarth Not available 08/20 08:18:38 Unspecified Relation Heart disease egarth Not available 2016 09:37:04 Unspecified Relation History of hypertension egarth Not available 09:37:13 Medical History Condition Response Thyroid Disease N Atrial Fibrillation N Black Lung N Thyroid Problems N COPD Y Lung Disease N Nervous Illness N Vascular Disease N Ulcers N Diabetes N Rheumatic Fever N Bleeding Disorder N Hiatal hernia N Tuberculosis N AIDS/HIV N Hyperlipidemia Y Cancer N Stroke N Asthma N Peripheral Vascular Disease N Jaundice N Warfarin Management N Heart Disease Y Hypertension Y Past Encounters Encounter ID Performer Location Encounter Start Date Encounter Closed Date Diagnosis/Indication Diagnosis SNOMED-CT Code Diagnosis ICD10 Code Diagnosis Note [id number] WALKER MATHEWS MD CARDIOLOG Y [address] [place] [address] 08/20/2016 09:21:40 08/20/2016 10:20:38 Coronary arteriosclerosis in [place] artery 1863420282 107 I25.10 Refer to cardiac Rehabilita tionContin ue secondary prevention with aspirin, statin, And beta blockerInc rease aerobic activitySt op smoking Dyspnea on exertion 6084 5006 R06.09 Refer to cardiac Rehabilita tionUnfort unately this time the patient feels he cannot work due to the amount of dyspnea.Ec hocardiogr am was normal in the hospitalth ere are no CAD culprits for Mechanical interventi on at this time. Continue medical therapy. Tobacco de pendence syndrome 57040811 F17.290 We discussed the risks benefits and alternativ es of Chantix therapy, he agrees to proceed, medication instructio ns were given to the patient and side effects were discussed. All questions were answered.P rescriptio n sent to pharmacy. [id number] WALKER MATHEWS MD CARDIOLOG Y [address] [place] [address] 12/04/2016 14:13:38 12/04/2016 14:46:01 Coronary arteriosclerosis in [place] artery 3209116166 107 I25.10 increase isosorbide mononitrat e to 60 mg dailyConti nue secondary prevention with aspirin, statin, And beta blockerInc rease aerobic activitySt op smoking Dyspnea on exertion 6084 5006 R06.09 encouraged increased aerobic exerciseUn fortunatel y at this time, the patient feels he cannot work due to the amount of dyspnea.Ec hocardiogr am was normal in the hospital 07/2016ther e are no CAD culprits for Mechanical interventi on at this time. Continue medical therapy. I recommende d pulmonary evaluation for PFTs and evaluation for obstructiv e lung disease. He will follow-up with his PCP regarding pulmonary recommenda tions. Tobacco de pendence syndrome 55948549 F17.290 we discussed the importance of complete tobacco cessation, assistance was offered.He was intolerant Chantix due to nausea [id number] HUGO WATERMAN MD CARDIOLOG Y [address] [place] [address] 05/31/2017 13:29:36 05/31/2017 14:47:41 Coronary arteriosclerosis in [place] artery 2576536451 107 I25.10 CAD S/P 2-vessel CABG (BAINS to LAD and SVG to PDA) in 2010 History of coronary artery bypass grafting 181415489 Z95.1 Essential hypertension 41527203 I10 Hyperlipidemia 07502789 E78.5 Tobacco de pendence syndrome 60529698 F17.200 Chronic ob structive pulmonary disease 64184217 J44.9 Health Concerns Section Related Observation LastModified by Organization Detai ls LastModified Time None Recorded Concern Status LastModified by Organization Details LastModified Time None Recorded Advance Directives Directive None Recorded Payers Insurance Date Sequence Insurance Name Policy Number Policy Boudreaux Covered Member ID Boudreaux Member ID Guarantor Name 02/06/2018 1 [employer] (PPO) [id number] Brad Hurley [id number] Brad Hurley 05/31/2017 1 [employer] (PP[employer]) [id number] Brad Hurley [id number] Brad Hurley 04/17/2019 PAYMENT PLAN Brad Hurley Notes Date Note Type Note Provider Name and Address Organization Details Recorded Time 08/20/2016 text/html Patient is a ple asant gentleman with a history of CAD status post two-vessel CABG (BAINS to LAD and SVG to PDA) in [address] Doe, associated history of hypertension, and tobacco abuse. Last echocardiogram on 07/19/2016 showed normal ejection fraction, With normal diastolic function and no valvular disease. He presents for 1 month follow-up after hospitalization for chest pain on 07/19/2016. He underwent cardiac catheterization after abnormal stress test, which found patent BAINS to LAD and patent SVG to PDA with 40-50% disease in the left circumflex. He did have an occluded second diagonal branch that he presented and stenting, it was felt this was the source of his angina and dyspnea. He complains of dyspnea on exertion today, but chest pain is much improved with Imdur 30 mg daily. He still smoking 10 cigarettes per day, and is interested in Chantix. Shortness of breath is with exertion such as one flight of stairs or playing with his grandson for less than 10 minutes. He feels he is unable to work due to this dyspnea.Shortness of breath is consistent with NYHA class III. WALKER MATHEWS MD [address] [place] [address], [phone], [facility] 08/20/2016 10:20:33 12/04/2016 text/html Patient is a ple asant gentleman with a history of CAD status post two-vessel CABG (BAINS to LAD and SVG to PDA) [place] [address] Doe, associated history of hypertension, and tobacco abuse. Last echocardiogram on 07/19/2016 showed normal ejection fraction, With normal diastolic function and no valvular disease. He presents for follow-up. On 07/19/2016, He underwent cardiac catheterization after abnormal stress test, which found patent BAINS to LAD and patent SVG to PDA with 40-50% disease in the left circumflex. He did have an occluded second diagonal branch that was too small for PCI, it was felt this was the source of his angina and dyspnea. He complains of dyspnea on exertion today, but chest pain is much improved with Imdur. He is still smoking 10 cigarettes per day, and he tried Chantix but it caused nausea. WALKER MATHEWS MD [address] [place] [address], [address], [facility] 12/04/2016 14:50:03 05/31/2017 text/html Ms Hurley is a 51 year old male with a history of CAD S/P 2-vessel CABG (BAINS to LAD and SVG to PDA) [place] [address] Doe, associated history of hypertension, and tobacco abuse. Last echocardiogram on 07/19/2016 showed normal ejection fraction, With normal diastolic function and no valvular disease. On 07/19/2016, he underwent cardiac catheterization after abnormal stress test, which found patent BAINS to LAD and patent SVG to PDA with 40-50% disease in the left circumflex. He did have an occluded second diagonal branch that was too small for PCI, it was felt this was the source of his angina and dyspnea. He is still smoking 10 cigarettes per day, and he tried Chantix but it caused nausea. He is here today for a follow-up visit. He does complain of mild dyspnea on exertion secondary to COPD. He does complain of intermittent chest pain which can happen at any time.. This has improved since he has started taking Imdur. He denies any significant palpitations, no PND, no orthopnea or syncope. EKG done shows normal sinus rhythm at 67 bpm HUGO WATERMAN MD [address] [place], [address], [facility] 05/31/2017 14:39:54
--- OUTSIDE RECORDS SUMMARY | 2024-09-18 07:40 | XMS_ITS | Continuity of Care Document ---
Author Organization [place] [facility], [place] Office New Address [address] [place] [address] Assessment Encounter Date Assessment Date Assessment LastModified by Organization Details LastModified Time 07/22/2024 07/22/2024 This is a pleasant 59-year-old [...] with these medications, he is requiring refills. [facility] #[id number], drug screen from 04/23/2024 was reviewed and [...] part of a comprehensive pain management strategy. [email or web address] Not available 07/22/2024 12:38:35 Plan of Treatment Reminders Order Date Submit Date Provider Last Modified By Organization Details Last Modified Time Details Appointments Follow Up 2024 11:40A M PEYTON LEAL NP Not available Not available Not available Lab None recorded. Referral None recorded. Procedures None recorded. Surgeries None recorded. Imaging MRI, lumbar spine, w/o contrast 2024 025 [facility] (Scheduling), [address], [place], [address], 07/24/2024 12:43:45 CT, lumbar spine, w/o contrast 2024 025 [email or web address] [facility] (Scheduling), [address], [place], [address], 08/18/2024 12:11:29 Medication Orders celecoxib 100 mg capsule 2024 025 [facility], [address] [place], [address], 07/24/2024 17:04:40 gabapenti n 800 mg tablet 2024 025 [facility], [address] [place], [address], 07/24/2024 17:04:38 hydrocodo ne 10 mg-acetam inophen 325 mg tablet 2024 025 [facility], [address] [place], [address], 07/24/2024 17:04:39 methocarb luc 750 mg tablet 2024 025 [facility], [address] [place], [address], 07/24/2024 17:04:37 Patient TargetsNo targets recorded. Patient InstructionsNo instructions recorded. Reason for Referral None Reported. Problems Name Problem SNOMED Code Status Onset Date Resolution Date Notes Provider Name and Address Organization Details Recorded Time Post dural puncture headache 660844346 Active 2023 Varun Crowder MD [address] ,[facility] [address], [address], [place] [facility] 14:46:45 Degeneration of lumbar intervertebral disc 38086943 Active 2023 Varun Crowder MD [address],[place] [address] [place] [address], [address], [place] [facility] 4 14:46:46 Lumbar spondylosis 490393413 Active 2023 Varun Crowder MD [address], [place], [address], [place] [facility] 4 14:46:47 Spinal stenosis of lumbar region 31479640 Active 2023 Varun Crowder MD [address],[place] [address] [place] [address], [address], [place] [facility] 4 14:46:48 Lumbar radiculopathy 023981813 Active 2023 Varun Crowder MD [address],[place] [address] [place] [address], [address], [place] [facility] 4 14:46:50 Long-term drug therapy Active 2024 GOLDEN ALVARADO [address], [address], [place] [facility] 5 16:16:39 Continuous opioid dependence 908574454 Active 2024 GOLDEN ALVARADO [address],[place] [address] [place] [address], [address], [place] [facility] 5 16:16:40 Problem Notes None recorded. Procedures Surgical History Date Name Laterality Status Provider Name and Address Organization Details Recorded Time 06/25/19 25 Diagnostic SI Joint Injection Under Fluoroscopy completed Varun Crowder MD [address],[place] [address] [place] [address], [address], [place] [facility] 06/24/2024 14:57:08 12/26/19 24 Lumbar MISSY: Interlaminar completed Varun Crowder MD [address],[place] [address] [place] [address], [address], [place] [facility] 12/26/2023 16:48:56 10/07/19 24 Lumbar MISSY: Interlaminar completed Varun Crowder MD [address], [place], [address], [place] [facility] 10/07/2023 [...] Not Available Vitals Date Recorded Body height Heart rate Respiratory rate Body mass index (BMI) Body weight Heart rate Oxygen saturation Oxygen saturation in Arterial blood by Pulse oximetry Systolic blood pressure Diastolic blood pressure Provider Name and Address Organization Details Last Updated DateTime 5 185.42 cm 73 /min 18 /min 23.7 kg/m2 07519.6 3 g 73 /min 98 % 98 % 143 mm[Hg] 71 mm[Hg] [place] [place] [facility] 5 11:14:38 Social History Question Answer Notes LastModified by [email or web address] Details LastModified Time Tobacco Smoking Status Current Every Day Smoker LANCE VILLALPANDOS null, [place] [facility] 10/07/2023 13:14:29 In The 14 Days Before Symptom Onset, Have You Had Close Contact With A Laboratory-confirm ed COVID-19 While That Case Was Ill? No [email or web address] Information n ot available 10/07/2023 In The 14 Days Before Symptom Onset, Have You Had Close Contact With A Person Who Is Under Investigation For COVID-19 While That Person Was Ill? No [email or web address] Information not available 10/07/2023 Have You Been To An Area Known To Be High Risk For COVID-19? No [email or web address] Information not available 10/07/2023 Sex: Unknown Functional Status Question Answer Note LastModified by [email or web address] Details LastModified Time Do you use any illicit or recreational drugs? No Information not available 10/07/2023 Do you or have you ever used any other forms of tobacco or nicotine? No [email or web address] Information not available 10/07/2023 What is your level of alcohol consumption? None [email or web address] Information not available 10/07/2023 Mental Status None recorded. Family History Nothing Reported. Medical History Condition Response Coronary Artery Disease Y Gout N Hernia N Head Trauma/Injury N Thyroid Problems N Depression N COPD N Anemia N Heart Attack ([place]) N Ulcers N Diabetes N Anxiety Disorder [...] SNOMED-CT Code Diagnosis ICD10 Code Diagnosis Note 02100 Varun Crowder MD [address] [place] [address] 06/24/2024 10:56:17 06/24/2024 12:29:36 Continuous opioid dependence 697430931 F11.20 Degenerati on of lumbar intervertebral disc 13250195 M51.369 Long-term drug therapy 199880542 Z79.891 Lumbar radiculopathy 128 927841 M54.16 Lumbar spondylosis 10264 0009 M47.896 Post dural puncture headache 830377990 G97.1 Spinal héctor nosis of lumbar region 73910915 M48.062 27[address] GOLDEN ALVARADO [address] [place] [address] 07/22/2024 11:02:55 07/22/2024 12:44:39 Lumbar radiculopathy 293038416 M54.16 Spinal héctor nosis of lumbar region 19416600 M48.062 Continuous opioid dependence 083989704 F11.20 Degenerati on of lumbar intervertebral disc 06930933 M51.369 Long-term current use of opiate analgesic drug 5442861192 01119 Z79.891 Long-term drug therapy 962797469 Z79.891 Health Concerns Section Related Observation LastModified by Organization Detai ls LastModified Time None Recorded Concern Status LastModified by Organization Details LastModified Time None Recorded Payers Encounter Date Sequence Insurance Name Policy Number Policy Boudreaux Covered Member ID Boudreaux Member ID Guarantor Name 07/22/2024 2 ASAFENE - [facility] [place] Brad Hurley [id number] Brad Hurley Notes Date Note Type Note Provider Name and Address Organization Details Recorded Time 07/22/2024 text/html Pain Management HeadacheReported bypatient.Location:at the back of the head (occipital); in changing locations Severity:pain level 6/10 Quality:varying intensity GOLDEN ALVARADO [address], [address], [place] [facility] 07/23/2024 08:43:03
--- NOTE | 2024-09-18 07:44 | MR_ITS ---
FINAL REPORT CLINICAL HISTORY: LBP down left leg. symptoms x2 years COMPARISON: None FINDINGS: Multiplanar MR imaging of the lumbar spine was performed without contrast. On the sagittal T2-weighted images, there is abnormal decreased signal at the L3-4, L4-5, and L5-S1 disc levels. The vertebrae are of normal height. Minimal spondylolisthesis of L3 on L4 is probably degenerative. L1-2: There is no significant canal stenosis or neural foraminal narrowing. L2-3: Mild disc bulge. Mild bilateral neural foraminal narrowing. L3-4: Moderate diffuse disc bulge. Bilateral facet hypertrophy. High-grade spinal canal compromise well seen on images 13 and 14 of series 5. Moderate bilateral neural foraminal narrowing. L4-5: Moderate diffuse disc bulge. Broad-based midline disc protrusion. Moderate spinal canal compromise. Moderate right neural foraminal narrowing. Left posterolateral disc extrusion with high-grade left neural foraminal narrowing. L5-S1: There is no significant canal stenosis or neural foraminal narrowing. IMPRESSION: Diffuse disc bulges at L3-4 and L4-5 with spinal canal compromise at these levels. Left posterolateral disc extrusion at L4-5 with high-grade left neural foraminal narrowing. Reviewed, Interpreted and Dictated by Mata Cardenas MD Transcribed by Yuridia Medeiros Authenticated and [facility]
== END 2024-09-18 23:59 | disposition home or self-care (01) ==
LOC: RAD 07:38
PROVIDERS: PCP Family Medicine; Visit Provider Anesthesiology
DX: M51.360 Other intervertebral disc degeneration, lumbar region with discogenic back pain only (principal); M48.061 Spinal stenosis, lumbar region without neurogenic claudication; M51.26 Other intervertebral disc displacement, lumbar region; M99.73 Connective tissue and disc stenosis of intervertebral foramina of lumbar region
CPT/HCPCS: 72148

== ENCOUNTER 2024-11-24 13:11 | Outpatient (CLI) | payer MEDICARE, SELFPAY ==
--- OUTSIDE RECORDS SUMMARY | 2024-11-24 13:19 | XMS_ITS | Encounter Summary ---
Author Organization [employer] ([place], [place], [place], [place]) Address [address] [place] [address] Care Team Providers Care Glass Furnace Operator Name Role Phone Unavailable Primary Care Provider Unavailabl e Encounter Details Date Type Department Care Team (Late st Contact Info) Description 08/31/2020 Transcribed Document [facility] [place] [facility] [place] [address] ProviderZulma MD [address] [place] [address] Social History Tobacco Use Types [...] Conversion Note - Historical ProviderMD - 08/31/2020 12:59 PM CDT Nursing [...] Rn-Clinical Coordinator I - 08/31/2020 12:59 EDT documented in this encounter Plan of Treatment Not on file documented as of this encounter Visit Diagnoses Not on filedocumented in this encounter
--- OUTSIDE RECORDS SUMMARY | 2024-11-24 13:19 | XMS_ITS | Clinical Summary ---
Author Organization [employer] ([place], [place], [place], [place]) Address [address] [place] [address] Care Team Providers Care Medication Aid Name Role Phone Unavailable Primary Care Provider [...]
--- OUTSIDE RECORDS SUMMARY | 2024-11-24 13:19 | XMS_ITS | Encounter Summary ---
Author Organization [employer] ([place], [place], [place], [place]) Address [address] [place] [address] Care Team Providers Care Feed Blender Name Role Phone Unavailable Primary Care Provider Unavailabl e Encounter Details Date Type Department Care Team (Late st Contact Info) Description 08/31/2020 Transcribed Document [facility] Family Medicine [facility] [place] [address] ProviderZulma MD [address] [place] [address] Social History Tobacco Use Types [...] Zulma ProviderMD - 08/31/2020 1:40 PM CDT [facility] [address] GEOVANNA HURLEY :1965 Visit Time:08/31/2020 Your [...] has been made Where: [address] [place] [address]- Business (1) Medications What How Much When [...] a prescription and some you can purchase yoep-fwo-mthlrcr. Medicines may have nicotine in them to [...] for support and encouragement. Call telephone quitlines (1-721-HDMI-NOW), reach out to support groups, or work [...] provider. Document Revised: 12/18/2019 Document Reviewed: 06/13/2019 [employer] Patient Education ?? 2020 TwitJump. Coronary Angiogram A coronary angiogram is an [...] including vitamins, herbs, eye drops, creams, and onxz-jan-xpmucpl medicines. ??? Any problems you or family [...] do not normally take it. ??? Taking jcmh-ufj-nkvdnkz medicines, vitamins, herbs, and supplements. General instructions [...] provider. Document Revised: 10/15/2019 Document Reviewed: 10/15/2019 [employer] Patient Education ?? 2020 TwitJump. Radial Site Care This sheet gives you [...] these instructions at home: Medicines ??? Take jtsw-ghv-csrxvwq and prescription medicines only as told by your health care provider. Insertion site care ??? Follow instructions from your health care provider about how to take care of your insertion site. Make sure you: ? Wash your hands with soap and water before you change your bandage (dressing). If soap and water are not available, use hand assembler engine. ? Change your dressing as told by [...] provider. Document Revised: 04/30/2018 Document Reviewed: 04/30/2018 [employer] Patient Education ?? 2020 [employer] Inc. Moderate Conscious Sedation, Adult, Care After [...] you are awake and alert. ??? Take vxxt-gjp-xsiwnem and prescription medicines only as told by [...] provider. Document Revised: 03/07/2018 Document Reviewed: 07/14/2016 [employer] Patient Education ?? 2020 [employer]itJump. It???s Cold and Flu Season ??? How [...] to thoroughly wash your hands, use hand assembler engine. While handwashing is best, hand assembler engine helps to reduce the spread of germs when you are out and about. Have hand assembler engine in several locations so you can always [...] keep people from also getting sick. Don???t [place] It! Sneezing this time of year is [...] a PCP near you, please visit HYPERLINK http://www.[facility]gow[facility] state hospitalhealthinitiatives.org/ www.cathgowanda state hospitalPage2ImagesiniEmerging Threatstives.org. June 12, 2019 FAQ ??? Patient COVID-19 [...] through the local health department and the [place] Department for Public Health. Those organizations are [...] and need to call 911, notify the rolling down machine operator that you have, or think you [...] clean your hands with an alcohol-based hand assembler engine that contains at least 60% alcohol. Clean your hands often. ??? Wash hands: Wash your hands often with soap and water for at least 20 seconds when visibly dirty. This is especially important after blowing your nose, coughing or sneezing, and going to the bathroom, and before eating or preparing food. ??? Hand assembler engine: Use an alcohol-based hand assembler engine with at least 60% alcohol, covering all [...] and water or put them in the oracle business analyst. Clean all high-touch surfaces every day. Clean [...] or body fluids on them. ??? Household isolation washer and disinfectants: Clean the area or item [...] list of disinfectants can be found here: https://www.epa.gov/pesticide-registration/cbbu-y-ztqnxwntgqupl-rvl-xpofjvy-vx rs-cov-2 Emergency Awareness and Preventative Care STROKE [...] Assistance with quitting is available by contacting 7-174-NEZL-NOW. This is a free resource providing counseling, [...] between ( 163 and 369 ) Patient Name:MARKELLGEOVANNA I have received and understand this information and was given the opportunity to ask questions. Patient/Accounts Payable Professional Name: Patient/Accounts Payable Professional Signature: Relationship to Patient: Clinician/Hospital Accounts Payable Professional Signature: Date: Electronically signed by [employer] [place] Conversion Carton Forming Machine Tender Harryner at 07/23/2022 9:20 AM CDT documented in this encounter Plan of Treatment Not on file documented as of this encounter Visit Diagnoses Not on filedocumented in this encounter
--- OUTSIDE RECORDS SUMMARY | 2024-11-24 13:19 | XMS_ITS | Encounter Summary ---
Author Organization [employer] ([place], [place], [place], [place]) Address [address] [place] [address] Care Team Providers Care Immunology Specialist Name Role Phone Unavailable Primary Care Provider Unavailabl e Encounter Details Date Type Department Care Team (Late st Contact Info) Description 03/25/2019 Transcribed Document [facility] [facility] [place] [address] ProviderZulma MD [address] [place] [address] Social History Tobacco Use Types [...] - Historical ProviderMD - 03/25/2019 10:43 AM UPHOLSTERY BUNDLER Pre Procedure Adult Entered On: 03/25/2019 10:50 EST Performed On: 03/25/2019 10:43 EST by RAY MORENO RN Height and Weight, Clinical Dosing Height Source : Measured Height Entry Format : [place] Height, Feet : 6 ft(Converted to: 183 cm, 72 Inch) Height, Inches : 1 Inch(Converted to: 0 ft 1 Inch, 2.54 cm) Clinical Height : 185.42 cm Weight Source : Standing scale Weight Entry Format : [place] Clinical Dosing Weight : 84.55 kg Weight, Pounds : 186 lb Weight, Ounces : 0 oz Body Surface Area (BSA) : 2.09 m2 Body Mass Index : 24.6 kg/m2 (HI) [place] Body Weight : 79 kg RAY MORENO [...] Home/Independent. (Last Updated: 07/19/2016 13:37:14 EDT by LILIAAN GARCÍA PA-C) Infectious Disease History Infectious Disease [...] RAY MORENO RN - 03/25/2019 10:43 EST [place] Suicide Severity Rating Scale (C-SSRS) CSSRS Past [...] Info Legal Guardian : No Support Person/Patient Boat Dispatcher : Yes Support Person/Pt Rep Name : Vandana Hurley Contact Password : michael Support Person/Pt Rep Contact Information : [phone] Want Family/Rep/Phys Notified of Admit : No Emergency Contact #1 : Vandana Emergency Contact #1 Phone Number : \[phone] Emergency Contact #1 Relationship : wifex Emergency Contact #2 : x Emergency Contact #2 Phone Number : x Emergency Contact #2 Relationship : x Primary Language : Tajik Preferred Communication Mode : Verbal Communication Barrier [...] Scale Risk Level : 25-45 Medium Risk [place] Fall Interventions : Adequate lighting, Assistive devices [...]
--- OUTSIDE RECORDS SUMMARY | 2024-11-24 13:19 | XMS_ITS | Encounter Summary ---
Author Organization [employer] ([place], [place], [place], [place]) Address [address] [place] [address] Care Team Providers Care Training And Development Manager Name Role Phone Unavailable Primary Care Provider Unavailabl e Encounter Details Date Type Department Care Team (Late st Contact Info) Description 03/25/2019 Transcribed Document [facility] [place] [facility] [address] ProviderZulma MD [address] [place] [address] Social History Tobacco Use Types [...] - Historical ProviderMD - 03/25/2019 7:17 PM NATURAL GAS TECHNICIAN Nursing Discharge Summary Entered On: 03/25/2019 19:18 [...] 03/25/2019 19:17 EST Electronically signed by Cristofer [facility] Conversion Motor Inspection Mechanic Cerner at 07/23/2022 9:29 AM CDT documented in this encounter Plan of Treatment Not on file documented as of this encounter Visit Diagnoses Not on filedocumented in this encounter
--- OUTSIDE RECORDS SUMMARY | 2024-11-24 13:19 | XMS_ITS | Encounter Summary ---
Author Organization [employer] ([place], [place], [place], [place]) Address [address] [place] [address] Care Team Providers Care Survey Chief Name Role Phone Unavailable Primary Care Provider Unavailabl e Encounter Details Date Type Department Care Team (Late st Contact Info) Description 03/25/2019 Transcribed Document [facility] [place] Family Medicine [facility] [place] [address] ProviderZulma MD [address] [place] [id number] Social History Tobacco Use Types Packs/Day Years [...] Zulma Jarquin MD - 03/25/2019 7:16 PM SLOT FLOORMAN Patient Education Materials Follows: Steps to Quit [...] 03/19/2002 Document Revised: 10/29/2017 Document Reviewed: 08/09/2015 [employer] Interactive Patient Education ? 2019 [employer] Inc. Health Risks of Smoking Smoking cigarettes [...] methods. Where to find more information ??? [place] [employer]: www.lung.org ??? [place] [employer] Society: www.cancer.org Summary ??? Smoking cigarettes [...] 05/02/2005 Document Revised: 03/29/2017 Document Reviewed: 03/29/2017 [employer] Interactive Patient Education ? 2019 [employer]Stripe. Moderate Conscious Sedation, Adult, Care After These [...] you are awake and alert. ??? Take fklc-tvg-mztqklf and prescription medicines only as told by [...] 01/13/2014 Document Revised: 08/27/2016 Document Reviewed: 07/14/2016 [employer] Interactive Patient Education ? 2019 [employer]. Groin Site Care Refer to this sheet [...] Document Reviewed: 04/27/2011 ExitCare? Patient Information ?2013 BoardBookit. Angiogram, Care After This sheet gives you [...] and water are not available, use hand portal developer. ? Change your dressing as told by [...] contrast dye from your body. ??? Take ngsu-oef-ysharse and prescription medicines only as told by [...] 10/11/2005 Document Revised: 02/27/2017 Document Reviewed: 02/27/2017 [employer] Interactive Patient Education ? 2019 [employer]pe. Coronary Angiogram A coronary angiogram is an [...] including vitamins, herbs, eye drops, creams, and mywd-uxm-funszxm medicines. ??? Any problems you or family [...] 09/29/2003 Document Revised: 01/04/2017 Document Reviewed: 01/04/2017 [employer] Interactive Patient Education ? 2017 [employer] Inc. Cardiovascular Coronary Artery Disease, Male Coronary artery disease (CAD) is a condition in which the arteries that lead to the heart (coronary arteries) become narrow or blocked. The narrowing or blockage can lead to decreased blood flow to the heart. Prolonged reduced blood flow can cause a heart attack (myocardial infarction or [place]). This condition may also be called coronary [...] these instructions at home: Medicines ??? Take ljld-wsx-lewcqne and prescription medicines only as told by [...] 10/20/2014 Document Revised: 03/15/2017 Document Reviewed: 03/15/2017 [employer] Interactive Patient Education ? 2019 [employer]pe. Nutrition Heart-Healthy Eating Plan Many factors influence [...] foods can I eat? Grains Breads, including Spanish, white, cl, wheat, raisin, rye, oatmeal, and German. Tortillas that are neither fried nor made with lard or trans fat. Low-fat rolls, including hotdog and hamburger buns and Tajik muffins. Biscuits. Muffins. Waffles. Pancakes. Light popcorn. Whole-grain cereals. Flatbread. [place] toast. Pretzels. Breadsticks. Rusks. Low-fat snacks and [...] cooking, baking, salads, and as spreads. Other [place] powder. Coffee and tea. All seasonings and [...] cheese. Whole milk cheeses, including blue (oren), Magoffin Cristian, Brie, Teja, Afghan, Havarti, Libyan, cheddar, Camembert, and [place]. Whole or 2% milk that is liquid, [...] that has suet, meat fat, or shortening. [place] butter, hydrogenated oils, palm oil, coconut oil, [...] 01/01/2009 Document Revised: 10/12/2016 Document Reviewed: 09/16/2014 [employer] Interactive Patient Education ? 2019 [employer] Inc. documented in this encounter Plan of Treatment Not on file documented as of this encounter Visit Diagnoses Not on filedocumented in this encounter
--- OUTSIDE RECORDS SUMMARY | 2024-11-24 13:19 | XMS_ITS | Encounter Summary ---
[facility] Organization [facility] Address [address] [place] [address] Care Team Providers Care Spiral Runner Name Role Phone Jaylen Jasmine MD Primary Care Provider +1- [phone] Encounter Details Date Type Department Care Team (Late st Contact Info) Description 11/18/2024 Telephone [facility] [place] [address] [place] [address] Dee Dee Gibson, INSURANCE APPLICATION INVESTIGATOR [address] [place] [address] [place] [address] Social History Tobacco Use Types Packs/Day Years Used Date Smoking Tobacco: Every Day Cigarettes Passive Smoke Exposure: Current Smokeless Tobacco: Never Alcohol Use Standard Drinks/Week Comments Not Currently 0 (1 standard drink = 0.6 oz pur e alcohol) Abuse Screen Answer Date Recorded Unsafe at Home or Work/School Not on file Feels Threatened by Someone? Not on file 04/2022 Does Anyone Keep You from Co ntacting Others or Doint Things Outside the Home? Not on file 03/08/2023 Physical Sign of Abuse Present Not on file 1 05/09/2022 Housing Stability Answer Date Recorded Current Living Arrangements Not on file 04/2022 Potentially Unsafe Housing Conditions Not on lisa e 03/08/2023 Family and Community Support Answer Harshil e Recorded Help with Day-to-Day Activities Not on file 03/08/2023 Lonely or Isolated Not on file 03/08/2023 Employment Answer Date Recorded Do you want help finding or keeping work or a supa b? Not on file 03/08/2023 Disabilities Answer Date Recorded Concentrating, Remembering, or Making Decisions Difficulty Not on file 03/08/2023 Doing Errands Independently Difficulty Not on fi le 03/08/2023 Education Answer Date Recorded Help with school or training? Not on file Preferred Language Not on file 03/08/2023 Sex and Gender Information Value Date Recorded Sex Assigned at Not on file Legal Sex Male 1:33 PM EDT Gender Identity Not on file Sexual Orientation Not on file documented as of this encounter Miscellaneous Notes * Telephone Encounter - John Luna RegSched Rep - 11/19/2024 1:09 PM EDT PT CALLED BACK HE IS GOING TO [facility] IN THE MORNING TO GET THEM DONE. I WILL FAX HIS ORDERS TO [facility]. * Telephone Encounter - Janneth Mckinley MA - 11/18/2024 10:37 AM EDT CALLED AND LVM FOR PATIENT TO SEE IF HE HAS GOT HIS LAB WORK COMPLETED THAT WE ORDERED AT LAST VISIT, IF SO WHERE. documented in this encounter Plan of Treatment Upcoming Encounters Date Type Department Care Team (Late st Contact Info) Description 11/27/2024 9:30 AM EDT Office Visit [facility] [address] [place] [id number] Dee Dee Gibson, INSURANCE APPLICATION INVESTIGATOR [address] [place] [address] [place] [address] documented as of this encounter Visit Diagnoses Not on filedocumented in this encounter Care Teams Spiral Runner Relationship Specialty Start Date End Date Jaylen Jasmine MD [address] [place] [address] PCP - General Family Medicine 10/15/23 documented as of this encounter
--- OUTSIDE RECORDS SUMMARY | 2024-11-24 13:19 | XMS_ITS | Encounter Summary ---
Author Organization [employer] ([place], [place], [place], [place]) Address [address] [place] [address] Care Team Providers Care Kettle Girl Name Role Phone Unavailable Primary Care Provider Unavailabl e Encounter Details Date Type Department Care Team (Late st Contact Info) Description 08/31/2020 Transcribed Document [facility] [place] [facility] [place] [address] ProviderZulma MD [address] [place] [address] Social History Tobacco Use Types [...] Conversion Note - Historical ProviderMD - 08/31/2020 1:40 PM CDT Patient [...] to thoroughly wash your hands, use hand loom winder tender. While handwashing is best, hand loom winder tender helps to reduce the spread of germs when you are out and about. Have hand loom winder tender in several locations so you can always [...] keep people from also getting sick. Don???t Lucinda It! Sneezing this time of year is [...] a PCP near you, please visit [facility] [email or web address]. June 12, 2019 FAQ - Patient COVID-19 [...] through the local health department and the [place] Department for Public Health. Those organizations are [...] and need to call 911, notify the stereo operator that you have, or think you [...] clean your hands with an alcohol-based hand loom winder tender that contains at least 60% alcohol. Clean your hands often. ??? Wash hands: Wash your hands often with soap and water for at least 20 seconds when visibly dirty. This is especially important after blowing your nose, coughing or sneezing, and going to the bathroom, and before eating or preparing food. ??? Hand loom winder tender: Use an alcohol-based hand loom winder tender with at least 60% alcohol, covering all [...] and water or put them in the swat team member. Clean all high-touch surfaces every day. Clean [...] or body fluids on them. ??? Household director of coding and disinfectants: Clean the area or item [...] list of disinfectants can be found here: https://www.epa.gov/pesticide-registration/oluw-h-dnyuaztoczdlk-jbc-xbufhpq-dz rs-cov-2 Neurology Radial Site Care This sheet [...] these instructions at home: Medicines ??? Take mqoz-lnu-soncsmt and prescription medicines only as told by your health care provider. Insertion site care ??? Follow instructions from your health care provider about how to take care of your insertion site. Make sure you: ? Wash your hands with soap and water before you change your bandage (dressing). If soap and water are not available, use hand loom winder tender. ? Change your dressing as told by [...] provider. Document Revised: 04/30/2018 Document Reviewed: 04/30/2018 [employer] Patient Education ? 2020 [employer] Pharmacology Moderate Conscious Sedation, Adult, Care [...] you are awake and alert. ??? Take niin-wvs-unxxxmt and prescription medicines only as told by [...] a prescription and some you can purchase tefq-rur-drbjbiz. Medicines may have nicotine in them to [...] for support and encouragement. Call telephone quitlines (4-535-LBWX-NOW), reach out to support groups, or work [...] provider. Document Revised: 12/18/2019 Document Reviewed: 06/13/2019 [employer] Patient Education ? 2020 [employer] Radiology Coronary Angiogram A coronary angiogram is [...] including vitamins, herbs, eye drops, creams, and fdma-zwk-bunesih medicines. ??? Any problems you or family [...] do not normally take it. ??? Taking ggge-guw-qacsoxt medicines, vitamins, herbs, and supplements. General instructions [...] provider. Document Revised: 10/15/2019 Document Reviewed: 10/15/2019 [employer] Patient Education ? 2020 [employer] Electronically signed by [employer] [place] Conversion Office Automation Technician Harryner at 07/23/2022 9:05 AM CDT documented in this encounter Plan of Treatment Not on file documented as of this encounter Visit Diagnoses Not on filedocumented in this encounter
--- OUTSIDE RECORDS SUMMARY | 2024-11-24 13:19 | XMS_ITS | Clinical Summary ---
[facility] Organization [facility] Address [address] [place] [address] Care Team Providers Care Remotely Operated Vehicle Name Role Phone Jaylen Jasmine MD Primary Care Provider +1- [phone] Allergies No known active allergies Medications Ventolin HFA 108 (90 Base) MCG/ACT inhaler Inhale 2 puffs Every 4 (Four) Hours As Needed. Active aspirin 81 MG EC tablet Take 1 tablet by mouth Daily. Active atorvastatin (LIPITOR) 40 MG tablet Take 1 tablet by mouth every night at bedtime. Active Advair Diskus 100-50 MCG/ACT DISKUS Inhale 1 puff 2 (Two) Times a Day. 4 Active gabapentin (NEURONTIN) 800 MG tablet Take 1 tablet by mouth 3 (Three) Times a Day. 4 Active HYDROcodone-aceta minophen (NORCO) 5-325 MG per tablet Take 1 tablet by mouth 3 (Three) Times a Day. 4 Active lisinopril (PRINIVIL,ZESTRIL ) 5 MG tablet Take 1 tablet by mouth Daily. Active meloxicam (MOBIC) 15 MG tablet Take 1 tablet by mouth Daily. Active methocarbamol (ROBAXIN) 750 MG tablet Take 1 tablet by mouth 3 (Three) Times a Day. 4 Active metoprolol tartrate (LOPRESSOR) 25 MG tablet Take 1 tablet by mouth 2 (Two) Times a Day. Active nitroglycerin (NITROSTAT) 0.[address] 1 tablet under the tongue Every 5 (Five) Minutes As Needed for Chest Pain. Active ranolazine (RANEXA) 500 MG 12 hr tablet Take 1 tablet by mouth 2 (Two) Times a Day. Active tamsulosin (FLOMAX) 0.4 MG capsule 24 hr capsule Take 1 capsule by mouth Daily. Active nicotine (Nicoderm CQ) 21 MG/24HR patchIndications: Cigarette nicotine dependence without complication Place 1 patch on the skin as directed by provider Daily. 30 patch 1 4 Active celecoxib (CeleBREX) 100 MG capsule Take 1 capsule by mouth Daily. 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 Continue current treatment regimen. Cardiac status will be reassessed in 6 months. No recent labs or PCP follow up Plan to check A1c, Lipids, CMP, and CBC Patient to continue aspirin, atorvastatin, metoprolol, and lisinopril. Assessment & Plan (12/02/2023 8:56 AM EDT): Coronary Artery Disease (OPTIONAL): Coronary artery disease is stable. Continue current treatment regimen. Cardiac status will be reassessed in 6 months. ECHO results showed normal heart function LV EF 65.8% and normal RVSP. Assessment & Plan (10/21/2023 8:51 AM EDT): Coronary Artery Disease (OPTIONAL): Coronary artery disease is stable. Continue current treatment regimen. Cardiac status will be reassessed in 6 months. Primary hypertension 10/18/2023 Assessment & Plan (05/29/2024 2:32 PM EST): Hypertension is stable and controlled Continue current treatment regimen. Blood pressure will be reassessed in 6 months. Continue Lisinopril, and metoprolol Assessment & Plan (12/02/2023 8:57 AM EDT): Hypertension is stable and controlled Continue current treatment regimen. Blood pressure will be reassessed in 6 months. Assessment & Plan (10/21/2023 8:51 AM EDT): Hypertension is stable and controlled Continue current treatment regimen. Blood pressure will be reassessed in 6 months. Cigarette nicotine dependence without complicati on 10/18/2023 Assessment & Plan (12/02/2023 8:57 AM EDT): Tobacco use is unchanged. Smoking cessation counseling was provided. Patient did not start the Nicoderm patches as prescribed. Tobacco use will be reassessed in 6 months. Assessment & Plan (10/21/2023 8:54 AM EDT): Tobacco use is unchanged. Smoking cessation counseling was provided. Pharmacotherapy was prescribed as ordered. Tobacco use will be reassessed in 6 months. Encounters Date Type Department Care Team Description 11/18/2024 Telephone [facility] C[facility] [address] [place] [address] Dee Dee Gibson APRN 11/10/2024 Telephone [facility] [address] [place] [address] Bhumi Jha MD Waes[place], Cristen K, MD-CALL BACK from Last 3 Months Family History Medical History Relation Name Comments Heart disease Father Heart disease Mother Heart disease Sister Relation Name Status Comments Father Alive Mother Alive Sister Alive Social History Tobacco Use Types Packs/Day Years Used Date Smoking Tobacco: Every Day Cigarettes Passive Smoke Exposure: Current Smokeless Tobacco: Never Tobacco Cessation:Ready to Q uit: Not Asked; Counseling Given: Not Answered Alcohol Use Standard Drinks/Week Comments Not Currently [...] on file Sexual Orientation Not on file Last Filed Vital Signs Vital Sign Reading Time Taken Comments Blood Pressure 132/68 05/29/2024 1:28 PM EST Pulse 61 05/29/2024 1:28 PM EST Temperature - - Respiratory Rate - - Oxygen Saturation 96% 05/29/2024 1:28 PM EST Inhaled Oxygen Concentration - - Weight 84.5 kg (186 lb 4.8 oz) 05/29/2024 1:28 P M EST Height 170.2 cm (5' 7 ) 05/29/2024 1:28 PM EST Body Mass Index 29.18 05/29/2024 1:28 PM EST Plan of Treatment Upcoming Encounters Date Type Department Care Team (Late st Contact Info) Description 11/27/2024 9:30 AM EDT Office Visit [facility] CARDI[facility] [address] [place] [address] Dee Dee Gibson, GASKET NOTCHER [address] [place] [address] [place] [address] Health Maintenance Due Date Last Done Comments Pneumococcal Vaccine 50+ (1 of 2 - PCV) 06/27/1986 COLOGUARD 06/27/2012 COLON CANCER SCREENING 5 YEA R SIGMOIDOSCOPY 06/27/2012 COLONOSCOPY 06/27/2012 COLORECTAL CANCER SCREENING 06/27/2012 CT COLONOGRAPHY 06/27/2012 FECAL OCCULT BLOOD TEST 06/27/2012 FIT Testing (1 year) 06/27/2012 ZOSTER VACCINE (1 of 2) 06/27/2017 ANNUAL PHYSICAL 10/18/2023 HEPATITIS C SCREENING 10/18/2023 COVID-19 Vaccine ( season) 2023, 06/02/2020 INFLUENZA VACCINE 01/06/2025 TDAP/TD VACCINES (2 - Td or Tdap) 08/30/2031 022 Insurance THANH S IND EXCHANGE Care Teams Remotely Operated Vehicle Relationship Specialty Start Date End Date Jaylen Jasmine MD [address] [place] [address] PCP - General Family Medicine 10/15/23
--- OUTSIDE RECORDS SUMMARY | 2024-11-24 13:19 | XMS_ITS | Encounter Summary ---
Author Organization [facility] Address [address] [place] [address] Care Team Providers Care Lens Block Gauger Name Role Phone Jaylen Jasmine MD Primary Care Provider +1- [phone] Reason for Visit * Reason Onset Date Comments Bhumi Jha MD-CALL BACK 11/10/2024 Encounter Details Date Type Department Care Team (Late st Contact Info) Description 11/10/2024 Telephone [facility] CARDIOLOGY [address] [place] [address] Bhumi Jha MD [address] [place] [address] Bhumi Jha MD-CALL BACK Social History Tobacco Use Types Packs/Day Years [...] encounter Miscellaneous Notes * Telephone Encounter - Geeta Terrell RN - 11/10/2024 12:27 PM EDT Called pt as he has a follow up scheduled for 11/27/24. When last seen labs were ordered, but he hasnot done them to date. Orders mailed to pt; advised to be fasting for 12 hours. He will get these done @ [facility] prior to follow up. * Telephone Encounter - Daphney Nation RegSched Rep - 11/10/2024 10:54 AM EDT . Caller: Brad Hurley Sr. Relationship: Self Best call back number: [phone] What is the best time to reach you: ANYTIME Who are you requesting to speak with (clinical staff, provider, specific staff member): ANYONE Do you know the name of the person who called: UNKNOWN What was the call regarding: PT SAID THAT SOMEONE CALLED AND LVM FOR HIM TO CALL BACK. PT DOESN'T KNOW WHO TRIED TO REACH HIM. documented in this encounter Plan of Treatment Upcoming Encounters Date Type Department Care Team (Late st Contact Info) Description 11/27/2024 9:30 AM EDT Office Visit [facility] C[facility]IOLOG[facility] [address] [place] [address] Dee Dee Gibson, EXECUTIVE ADMINISTRATIVE ASSISTANT [address] [place] [address] documented as of this encounter Visit Diagnoses Not on filedocumented in this encounter Care Teams Lens Block Gauger Relationship Specialty Start Date End Date Jaylen Jasmine MD [address] [place] [address] PCP - General Family Medicine 10/15/23 documented as of this encounter
--- OUTSIDE RECORDS SUMMARY | 2024-11-24 13:19 | XMS_ITS | Encounter Summary ---
Author Organization [employer] ([place], [place], [place], [place]) Address [address] [place] [address] Care Team Providers Care Stockroom Attendant Name Role Phone Unavailable Primary Care Provider Unavailabl e Encounter Details Date Type Department Care Team (Late st Contact Info) Description 03/25/2019 Transcribed Document [facility] Cardiology [address] [place] [address] Ilan Rhodes MD [address] [facility] [address] [place] [address] Social History Tobacco Use Types [...] MD - 03/25/2019 12:00 PM EST Patient: GEOVANNA GUILLAUME GERALD Age: 53 years Sex: Male : 1965 Associated Diagnoses: None Author: ILAN RHODES MD-CAR Basic Information PCP: JAGDISH OSUNA Welder Operator: Rhonda Jha MD Chief Complaint chest pain [...] All Problems HTN (hypertension) / SNOMED CT 0518218820 / Confirmed HLD (hyperlipidemia) / SNOMED CT 39587936 / Confirmed CAD - Coronary artery disease / SNOMED CT 7753705389 / Confirmed HTN - Hypertension / SNOMED CT 9626620203 / Confirmed HLD - Hyperlipidemia / SNOMED CT 215409349 / Confirmed, Active Problems (2) HLD (hyperlipidemia) [...] History: Active CAD - Coronary artery disease (9687796517) HLD - Hyperlipidemia (972545184) HTN - Hypertension (2793965595) Family History: Entire family history is negative. Procedure history: open heart surgery. Appendectomy; (CPT4 26196). Social History Social & Psychosocial Habits Alcohol [...] of motion, Normal strength. Integumentary: Warm, Dry, [place]. Neurologic: Alert, Oriented. Psychiatric: Cooperative. Review / [...]
--- OUTSIDE RECORDS SUMMARY | 2024-11-24 13:19 | XMS_ITS | Referral Summary ---
Author Organization [employer] ([place], [place], [place], [place]) Address [address] [place] [address] Care Team Providers Care Notching Press Operator Name Role Phone Unavailable Primary Care [...]
--- OUTSIDE RECORDS SUMMARY | 2024-11-24 13:19 | XMS_ITS | Encounter Summary ---
Author Organization [employer] ([place], [place], [place], [place]) Address [address] [place] [address] Care Team Providers Care Taker Off Drying Kiln Name Role Phone Unavailable Primary Care Provider Unavailabl e Encounter Details Date Type Department Care Team (Late st Contact Info) Description 08/31/2020 Transcribed Document [facility] Cardiology [address] [place] [address] Ilan Rhodes MD [address] [facility] [address] [place] [address] Social History Tobacco Use Types Packs/Day Years [...] - 08/31/2020 10:00 AM EDT Patient: GEOVANNA GUILLAUME GERALD Age: 55 years Sex: Male : 1965 Associated Diagnoses: None Author: ILAN RHODES MD-CAR Basic Information PCP: Rogelio Marie Primary Drum Sprayer: Dr. Jha Chief Complaint Chest Pain, Abnormal [...] ischemia, normal EF. Patient presents today for [facility] with Dr. Ilan Rhodes. Review of [...] - Coronary artery disease / SNOMED CT 1308056186 / Confirmed HTN - Hypertension / SNOMED CT 9693262650 / Confirmed HLD - Hyperlipidemia / SNOMED CT 683985062 / Confirmed History of obstructive sleep apnea / IMO 29587347 / Confirmed HTN (hypertension) / SNOMED CT 5522487784 / Confirmed HLD (hyperlipidemia) / SNOMED CT 44178722 / Confirmed Histories No education data available. Social & Psychosocial Habits Alcohol 07/19/2016 Alcohol Use History, Social Habits No Home/Environment 07/19/2016 Lives with: Spouse Living situation: Home/Independent Substance Abuse 07/19/2016 Recreational Drug Use History No Recreational Drug Use Last 12 Months No Tobacco 07/19/2016 Smoking Status Current every day smoker Past Medical History: Active CAD - Coronary artery disease (9056176020) COPD (Chronic Obstructive Pulmonary Disease) Assessment Test scale (9007689088) HLD - Hyperlipidemia (483609959) HTN - Hypertension (3529057394) Tobacco abuse (199941855) Family History: Entire family history is negative., Non-contributory Procedure history: CORONARY ARTERY BYP W/VEIN & ARTERY GRAFT 1 VEIN (16936) on 04/08/2010 at 44 Years. Comments: 08/31/2020 9:12 EDT - Ruby Espino, RN-ROUNDING BAINS to LAD SVG to PDA Appendectomy; ([id number]). open heart surgery. Physical Examination VS/Measurements No [...] of motion, Normal strength. Integumentary: Warm, Dry, [place]. Neurologic: Alert, Oriented. Psychiatric: Cooperative, Appropriate mood [...] COPD INES Tobacco Abuse-2ppd x35 years PLAN; [facility] with possible percutaneous coronary intervention. Risk and benefits discussed with patient. Patient wishes to proceed. Plan for left radial access. documented in this encounter Plan of Treatment Not on file documented as of this encounter Visit Diagnoses Not on filedocumented in this encounter
--- OUTSIDE RECORDS SUMMARY | 2024-11-24 13:19 | XMS_ITS | Encounter Summary ---
Author Organization [employer] ([place], [place], [place], [place]) Address [address] [place] [address] Care Team Providers Care Blue Split Trimmer Name Role Phone Unavailable Primary Care Provider Unavailabl e Encounter Details Date Type Department Care Team (Late st Contact Info) Description 08/31/2020 Transcribed Document [facility] [place] [facility] [place] [address] ProviderZulma MD [address] [place] [address] Social History Tobacco Use Types [...] Source : Stated Height Entry Format : [place] Height, Feet : 6 ft(Converted to: 183 cm, 72 Inch) Height, Inches : 1 Inch(Converted to: 0 ft 1 Inch, 2.54 cm) Clinical Height : 185.42 cm Weight Source : Standing scale Weight Entry Format : [place] Clinical Dosing Weight : 86.82 kg Weight, Pounds : 191 lb Body Surface Area (BSA) : 2.11 m2 Body Mass Index : 25.3 kg/m2 (HI) [place] Body Weight : 79 kg PATRICIA GODOY Rn-Clinical Coordinator I - 08/31/2020 9:39 EDT Health Histories Smoking Status : 10 or more cigarettes (1/2 pack or more)/day in last 30 days Smokeless Tobacco Status : Never Desires Tobacco Cessation Medication : No Reason for No Tobacco Cessation Medication : Refuses FDA approved medications PATRICIA GODOY Rn-Clinical Coordinator I - 08/31/2020 [...] Rn-Clinical Coordinator I - 08/31/2020 9:39 EDT [place] Suicide Severity Rating Scale (C-SSRS) CSSRS Past Month Wish to be : No CSSRS Past Month Suicidal Thoughts : No CSSRS Lifetime Suicide Behavior : No Suicide Severity Rating Score : 0 Suicide Severity Rating : No Additional Care Required at this time PATRICIA GODOY Rn-Clinical Coordinator - 08/31/2020 9:39 EDT Psychosocial History Do You Have a History of the Following? : Patient denies history Currently in Unsafe Situation : No PATRICIA GODOY Rn-Clinical Coordinator - 08/31/2020 9:39 EDT Advance Directive Patient has Advance Directive *Q : No, patient refuses Advance Directive information PATRICIA GODOY Rn-Clinical Coordinator - 08/31/2020 9:39 EDT Teaching/Learning Assessment Barriers To Learning : None evident PATRICIA GODOY Rn-Clinical Coordinator - 08/31/2020 9:39 EDT Education Topics, Periop Preadmission Perioperative Education [place] : Verbalizes understanding IV's : Verbalizes understanding Preprocedure Preparations : Verbalizes understanding Preprocedure Tests/Labs : Verbalizes understanding PATRICIA GODOY Rn-Clinical Coordinator I - 08/31/2020 9:39 EDT General Info Legal Guardian : No Support Person/Patient Agricultural Real Estate Agent : Yes Support Person/Pt Rep Name : Vandana Hurley Contact Password : michael Support Person/Pt Rep Contact Information : [phone] Want Family/Rep/Phys Notified of Admit : No Emergency Contact #1 : . Emergency Contact #1 Phone Number : . Emergency Contact #1 Relationship : . Emergency Contact #2 : . Emergency Contact #2 Phone Number : . Emergency Contact #2 Relationship : . Primary Language : Malagasy Preferred Communication Mode : Verbal Communication Barrier : None Vehicle Mechanic Needed : No PATRICIA GODOY Rn-Clinical Coordinator - 08/31/2020 9:39 EDT Sleep Apnea Risk [...] Scale Risk Level : 25-45 Medium Risk [place] Fall Interventions : Adequate lighting, Assistive devices [...]
--- OUTSIDE RECORDS SUMMARY | 2024-11-24 13:19 | XMS_ITS | Encounter Summary ---
Author Organization [employer] ([place], [place], [place], [place]) Address [address] [place] [address] Care Team Providers Care Anglesmith Name Role Phone Unavailable Primary Care Provider Unavailabl e Encounter Details Date Type Department Care Team (Late st Contact Info) Description 03/25/2019 Transcribed Document [facility] [place] Family Medicine [address] [place] [address] ProviderZulma MD [address] [place] [address] Social History Tobacco Use Types Packs/Day Years Used Date Smoking Tobacco: Never Assessed Sex and Gender Information Value Date Recorded Sex Assigned at Male 10/03/2021 5:40 PM CDT Legal Sex Male 5:40 PM CDT Gender Identity Male 10/03/2021 5:40 PM CDT Sexual Orientation Not on file documented as of this encounter Miscellaneous Notes * Cerner Conversion Note - Zulma ProviderMD - 03/25/2019 7:18 PM 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 2019 [employer] Health Risks of Smoking Smoking cigarettes [...] methods. Where to find more information ??? [place] [employer]: www.lung.org ??? [place] [employer] Society: www.cancer.org Summary ??? Smoking cigarettes [...] 05/02/2005 Document Revised: 03/29/2017 Document Reviewed: 03/29/2017 [employer] Patient Education ?? 2019 [employer] Moderate Conscious Sedation, Adult, Care After [...] you are awake and alert. ??? Take ixdm-ead-noztwxg and prescription medicines only as told by [...] 01/13/2014 Document Revised: 08/27/2016 Document Reviewed: 07/14/2016 [employer] Patient Education ?? 2019 [employer] Groin Site Care Refer to this [...] Document Reviewed: 04/27/2011 ExitCare?? Patient Information ??2013 [employer]. Angiogram, Care After This sheet gives you [...] and water are not available, use hand welt insole channeler. ? Change your dressing as told by [...] contrast dye from your body. ??? Take bfoq-pku-kzceurv and prescription medicines only as told by [...] 10/11/2005 Document Revised: 02/27/2017 Document Reviewed: 02/27/2017 [employer] Patient Education ?? 2019 [employer] Coronary Artery Disease, Male Coronary artery disease (CAD) is a condition in which the arteries that lead to the heart (coronary arteries) become narrow or blocked. The narrowing or blockage can lead to decreased blood flow to the heart. Prolonged reduced blood flow can cause a heart attack (myocardial infarction or ND). This condition may also be called coronary [...] these instructions at home: Medicines ??? Take sace-rqo-qevcoun and prescription medicines only as told by [...] 10/20/2014 Document Revised: 03/15/2017 Document Reviewed: 03/15/2017 [employer] Patient Education ?? 2019 [employer] Coronary Angiogram A coronary angiogram is [...] including vitamins, herbs, eye drops, creams, and lope-pjh-hzsorhp medicines. ??? Any problems you or family [...] 09/29/2003 Document Revised: 01/04/2017 Document Reviewed: 01/04/2017 [employer] Patient Education ?? 2017 [employer]. Heart-Healthy Eating Plan Many factors influence your [...] foods can I eat? Grains Breads, including Macedonian, white, cl, wheat, raisin, rye, oatmeal, and Azerbaijani. Tortillas that are neither fried nor made with lard or trans fat. Low-fat rolls, including hotdog and hamburger buns and Czech muffins. Biscuits. Muffins. Waffles. Pancakes. Light popcorn. [...] cooking, baking, salads, and as spreads. Other Igo powder. Coffee and tea. All seasonings and [...] cheese. Whole milk cheeses, including blue (oren), [place] Cristian, Brie, Teja, [place], Havarti, Moroccan, cheddar, Camembert, and Ray. Whole or 2% milk that is liquid, [...] that has suet, meat fat, or shortening. Igo butter, hydrogenated oils, palm oil, coconut oil, [...] 01/01/2009 Document Revised: 10/12/2016 Document Reviewed: 09/16/2014 [employer] Patient Education ?? 2019 [employer]. Emergency Awareness and Preventative Care STROKE is [...] Assistance with quitting is available by contacting 1-146-KWWX-NOW. This is a free resource providing counseling, [...] was given the opportunity to ask questions. Patient/Drafter Tool Design Name: Patient/Drafter Tool Design Signature: Relationship to Patient: Clinician/Hospital Drafter Tool Design Signature: Date: Electronically signed by Cristofer, [facility] Conversion Scholarship Counselor Aries at 07/23/2022 9:20 AM CDT documented in this encounter Plan of Treatment Not on file documented as of this encounter Visit Diagnoses Not on filedocumented in this encounter
--- OUTSIDE RECORDS SUMMARY | 2024-11-24 13:19 | XMS_ITS | Encounter Summary ---
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 TR band in place [...]
[2024-11-24 13:53] LABS: Hematocrit 40.5 % (42.0-52.0); Hemoglobin 14.0 g/dL (14.1-18.0); Immature Granulocytes % 0.1 %; Mean Corpuscular HGB Conc 34.6 g/dL (31.8-35.4); Mean Corpuscular Hemoglobin 32.9 pg (27.0-31.2); Mean Corpuscular Volume 95.1 fl (80-94); Nucleated Red Blood Cells % 0 %; Platelet Count 232 K/mm3 (142-424); Red Blood Count 4.26 M/mm3 (4.60-6.20); Red Cell Distribution Width-SD 43.8 fL; White Blood Count 6.7 K/mm3 (4.8-10.8)
[2024-11-24 14:29] LABS: Albumin Level 4.0 g/dl (3.5-5.0); Chloride 111 mmol/L (98-107)
[2024-11-24 14:30] LABS: Potassium 4.0 mmoL/L (3.5-5.1); Sodium 142 mmol/L (136-145)
[2024-11-24 14:32] LABS: Alanine Aminotransferase 19 U/L (12-78); Anion Gap 11.0 mEq/L (5-15); Aspartate Amino Transferase 26 U/L (17-59); Blood Urea Nitrogen 17 mg/dl (9-20); Carbon Dioxide 24 mmol/L (22.0-30.0); Creatinine,Serum 0.80 mg/dl (0.66-1.25); Estimated Glomerular Filt Rate 100 ml/min (>60); GFR (African American) 121 ML/MIN (>60)
[2024-11-24 14:33] LABS: Albumin/Globulin Ratio 1.3 (1.1-1.8); Alkaline Phosphatase 116 U/L (38-126); Bilirubin,Total 0.4 mg/dl (0.2-1.3); Calcium 9.0 mg/dl (8.4-10.2); Cholesterol 124 mg/dl (140-200); Globulin 3.1 g/dL (1.3-3.2); Glucose 108 mg/dl (74-100); HDL Cholesterol 31 mg/dl (40-60); Total Protein,Serum 7.1 g/dl (6.3-8.2); Triglycerides 135 mg/dl (30-150)
[2024-11-24 15:07] LABS: Hemoglobin A1C 5.7 % (4.0-6.0)
== END 2024-11-24 23:59 | disposition home or self-care (01) ==
LOC: LAB 13:12
PROVIDERS: PCP Family Medicine; Visit Provider Nurse Practitioner Family
DX: I25.708 Atherosclerosis of coronary artery bypass graft(s), unspecified, with other forms of angina pectoris (principal); E11.65 Type 2 diabetes mellitus with hyperglycemia; I10 Essential (primary) hypertension
CPT/HCPCS: 36415; 80053; 80061; 83036; 85025